=== PATIENT | male | born 1960 | race Caucasian/White ===

== ENCOUNTER 2018-01-17 09:27 | Emergency (ER) | payer SELFPAY ==
[~2018-01-17] VITALS: Ht 182.9 cm; Wt 64.0 kg
[~2018-01-17 09:27] MED LIST: ASPI81 PO; ATOR80TA41 PO; HYDR12.56 PO; LEVO100T4 PO; METO25 PO
[2018-01-17 09:29] VITALS: BP 130/79; PULSE 64; RESP 18; TEMP 98.4; O2SAT 97
[2018-01-17 10:10] VITALS: BP 130/81; PULSE 62; RESP 17; O2SAT 100
--- NOTE | 2018-01-17 10:11 | PD ---
HPI Chief Complaint: ENT Complaint Time Seen by Provider: 10:04 Travel History International Travel<30 days: No Contact w/Intl Traveler<30days: No Traveled to known affect area: No History of Present Illness HPI 57 y/o male presents with a painful lump that he noted to his neck about a week ago. He states he recently moved back here from [place] to complete his cancer workup here when they told him he had about 6 months to live. He states his last chemotherapy was October 28. He states he was diagnosed with lung cancer that had spread to his brain and also received radiation. He states he has not set up an oncologist here yet. He denies any fever or other concurrent complaints at this time. Quality is painful. Location is neck. He denies specific modifying factors. PFSH Past Medical History Blood Disorders: No Cancer: No Cardiac Catheterization: Yes Cardiovascular Problems: No Chest Pain: Yes Congestive Heart Failure: No Cerebrovascular Accident: No Coronary Artery Disease: Yes Diabetes: No Diminished Hearing: No Endocrine: No Gastrointestinal Disorders: Yes Genitourinary: No Hypertension: Yes Immune Disorder: No Musculoskeletal: Yes (CERVICAL DDD) Neurologic: No Psychiatric: No Reproductive: No Respiratory: No Immunizations Current: Yes Myocardial Infarction: Yes (AUG 2014) Seizures: No Ulcer: No Past Surgical History AICD: No Arteriovenous Shunt: No Cardiac Surgery: Yes (ANGIOPLASTY IN 1997) Coronary Stent: Yes (CIRCUMFLEX ARTERY AUG 2014) Insulin Pump: No Joint Replacement: No Pacemaker: No Other Surgery: Yes (l knee tumor removed) Social History Alcohol Use: Yes (A FEW BEERS DAILY) Tobacco Use: Yes (1 PPD) Substance Use: No Allergies-Medications (Allergen,Severity, Reaction): Coded Allergies: No Known Allergies (Verified , 01/18/16) Reported Meds & Prescriptions Reported Meds & Active Scripts Active Reported Meloxicam 15 Mg Tab 15 Mg PO DAILY Hydrocodone-Acetamin 10-325 mg (Hydrocodone/Acetaminophen) 10 Mg-325 Mg Tablet 1 Tab PO Q4-6H PRN Atorvastatin (Atorvastatin Calcium) 80 Mg Tab 80 Mg PO HS Hydroxychloroquine (Hydroxychloroquine Sulfate) 200 Mg Tab 200 Mg PO DAILY Takw with food Hydrochlorothiazide 12.5 Mg Cap 12.5 Mg PO DAILY Allopurinol 100 Mg Tab 100 Mg PO DAILY Levothyroxine (Levothyroxine Sodium) 100 Mcg Tab 100 Mcg PO DAILY Metoprolol Tartrate 50 Mg Tab 50 Mg PO BID Aspirin EC (Aspirin) 81 Mg Tabdr 81 Mg PO DAILY Review of Systems Except as stated in HPI: all other systems reviewed are Neg Physical Exam Narrative GENERAL: 57-year-old male who appears older than stated age SKIN: Focused skin assessment warm/dry. HEAD: Atraumatic. Normocephalic. EYES:No scleral icterus. No injection or drainage. ENT: No nasal bleeding or discharge. Mucous membranes pink and moist. NECK: Trachea midline. No JVD. Patient has painful palpable supraclavicular lymph node on the right without overlying erythema CARDIOVASCULAR: Regular rate and rhythm. RESPIRATORY: No accessory muscle use. Clear to auscultation. GASTROINTESTINAL: Abdomen soft, non-tender, nondistended. MUSCULOSKELETAL: No obvious deformities. No clubbing. No cyanosis. NEUROLOGICAL: Awake and alert. moves all extremities. Normal speech. PSYCHIATRIC: Appropriate mood and affect; insight and judgment normal. Data Data Last Documented VS Vital Signs Date Time Temp Pulse Resp B/P (MAP) Pulse Ox O2 Delivery O2 Flow Rate FiO2 01/17/18 10:10 62 17 130/81 (97) 100 01/17/18 09:29 98.4 Orders Orders Complete Blood Count With Diff (01/17/18 10:08) Basic Metabolic Panel (Bmp) (01/17/18 10:08) Chest, Pa & Lat (01/17/18 ) Iv Access Insert/Monitor (01/17/18 10:08) Ecg Monitoring (01/17/18 10:08) Oximetry (01/17/18 10:08) Ct Thorax/ Chest W Iv Contrast (01/17/18 ) Ct Abd/Pel W Iv Contrast(Rout) (01/17/18 ) Iohexol 350 Inj (Omnipaque 350 Inj) (01/17/18 11:43) Labs Laboratory Tests Test 01/17/18 10:20 White Blood Count 6.7 TH/MM3 Red Blood Count 4.69 MIL/MM3 Hemoglobin 15.5 GM/DL Hematocrit 43.8 % Mean Corpuscular Volume 93.5 FL Mean Corpuscular Hemoglobin 33.0 PG Mean Corpuscular Hemoglobin Concent 35.3 % Red Cell Distribution Width 14.8 % Platelet Count 137 TH/MM3 Mean Platelet Volume 6.7 FL Neutrophils (%) (Auto) 69.4 % Lymphocytes (%) (Auto) 19.8 % Monocytes (%) (Auto) 9.6 % Eosinophils (%) (Auto) 0.9 % Basophils (%) (Auto) 0.3 % Neutrophils # (Auto) 4.7 TH/MM3 Lymphocytes # (Auto) 1.3 TH/MM3 Monocytes # (Auto) 0.6 TH/MM3 Eosinophils # (Auto) 0.1 TH/MM3 Basophils # (Auto) 0.0 TH/MM3 CBC Comment DIFF FINAL Differential Comment Blood Urea Nitrogen 20 MG/DL Creatinine 0.81 MG/DL Random Glucose 107 MG/DL Calcium Level 8.3 MG/DL Sodium Level 138 MEQ/L Potassium Level 3.5 MEQ/L Chloride Level 104 MEQ/L Carbon Dioxide Level 28.6 MEQ/L Anion Gap 5 MEQ/L Estimat Glomerular Filtration Rate 98 ML/MIN MDM Medical Decision Making Medical Screen Exam Complete: Yes Emergency Medical Condition: Yes Medical Record Reviewed: Yes (Past history confirmed) Interpretation(s) CBC & BMP Diagram 01/17/18 10:20 Calcium Level 8.3 L Last 24 hours Impressions Chest X-Ray 01/17/18 0000 Signed Impressions: Service Date/Time: Wednesday, January 17, 2018 10:21 - CONCLUSION: No acute cardiopulmonary disease. Naresh Marie MD CT chest with lung areas noted, CT abdomen and pelvis with hepatic and bony metastasis Differential Diagnosis Cancer, lymph node, URI Narrative Course will check labs, cxr and reevaluate Patient updated and agrees to discharge. He is happy with care provided. He is not wanting to stay in the hospital given the above and agrees that the lesion is likely cancerous. He is happy to call to set up further care. Given return instructions Physician Communication Physician Communication dr truong states to check ct chest and abdomen to help expedite workup and can follow outpatient Diagnosis Primary Impression: Metastatic lung carcinoma Qualified Codes: C78.00 - Secondary malignant neoplasm of unspecified lung Additional Impression: Supraclavicular adenopathy Referrals: Liana Truong MD call for appointment Patient Instructions: General Instructions Additional Instructions: return as needed Med/Other Pt SpecificInfo: No Change to Meds Disposition: 01 DISCHARGE HOME Condition: Stable Sasha Roman MD Jan 17, 2018 10:11
[2018-01-17] MEDS ORDERED: HYDR200T3 PO (10:19)
[2018-01-17] MEDS ORDERED: METO50TA PO (10:19)
[2018-01-17] MEDS ORDERED: ALLO100T PO (10:19)
[2018-01-17] MEDS ORDERED: HYDR12.57 PO (10:19)
[2018-01-17] MEDS ORDERED: ASPI81TA23 PO (10:19)
[2018-01-17] MEDS ORDERED: ATOR80TA45 PO (10:19)
[2018-01-17] MEDS ORDERED: HYDR-3583 PO (10:19)
[2018-01-17] MEDS ORDERED: LEVO100T5 PO (10:19)
[2018-01-17] MEDS ORDERED: MELO15TA20 PO (10:25)
--- NOTE | 2018-01-17 10:33 | RADRPT ---
EXAM DATE/TIME: 01/17/2018 10:21 [facility] COMPARISON: No previous studies available for comparison. INDICATIONS : Cough. MEDICAL HISTORY : Hypertension Lung cancer with mets. Brain cancer. Coronary artery disease. SURGICAL HISTORY : Cardiac cath. Cornary stent. ENCOUNTER: Initial ACUITY: 1 day PAIN SCORE: 0/10 LOCATION: Bilateral chest FINDINGS: PA and lateral views of the chest demonstrate the lungs to be symmetrically aerated without evidence of mass, infiltrate or effusion. The cardiomediastinal contours are unremarkable. Osseous structure s are intact. CONCLUSION: No acute cardiopulmonary disease. Naresh Marie MD on January 17, 2018 at 10:31 Board Certified Radiologist. This report was verified electronically.
[2018-01-17 10:58] LABS: AUTOMATED NEUTROPHIL # 4.7 TH/MM3 (1.8-7.7); BASOPHIL % 0.3 % (0.0-2.0); EOSINOPHIL # 0.1 TH/MM3 (0-0.4); EOSINOPHIL % 0.9 % (0.0-4.0); HEMATOCRIT 43.8 % (39.0-51.0); HEMOGLOBIN 15.5 GM/DL (13.0-17.0); LYMPH % 19.8 % (9.0-44.0); LYMPHOCYTE # 1.3 TH/MM3 (1.0-4.8); MEAN CELL VOLUME 93.5 FL (80.0-100.0); MEAN CORPUSCULAR HGB CONC 35.3 % (32.0-36.0); MEAN PLATELET VOLUME 6.7 FL (7.0-11.0); MONO % 9.6 % (0.0-8.0); MONOCYTE # 0.6 TH/MM3 (0-0.9); NEUT % 69.4 % (16.0-70.0); PLATELET COUNT 137 TH/MM3 (150-450); RED BLOOD COUNT 4.69 MIL/MM3 (4.50-5.90); RED CELL DISTRIBUTION WIDTH 14.8 % (11.6-17.2); WHITE BLOOD COUNT 6.7 TH/MM3 (4.0-11.0)
[2018-01-17 11:15] LABS: BICARBONATE 28.6 MEQ/L (21.0-32.0); CALCIUM 8.3 MG/DL (8.5-10.1); CREATININE 0.81 MG/DL (0.60-1.30)
[2018-01-17] MEDS ORDERED: IOHEXOL 350 MG/ML 10 ML VIAL (for RAD DIAG) IVCONTRAST ONE (11:43)
--- NOTE | 2018-01-17 12:11 | RADRPT ---
EXAM DATE/TIME: 01/17/2018 11:39 This report includes an Addendum and supersedes previous reports for this exam. [facility] COMPARISON: No previous studies available for comparison. INDICATIONS : Right lower neck and upper chest pain and lump. Evaluate for mass. IV CONTRAST: 95 cc Omnipaque 350 (iohexol) IV ; Cumulative dose for multiple exams. RADIATION DOSE: 6.94 CTDIvol (mGy) ; Combined studies - Thorax/Abdomen/Pelvis MEDICAL HISTORY : Carcinoma, lung. Metastatic, brain. Cardiovascular diseaseHypertension. SURGICAL HISTORY : None. ENCOUNTER: Initial ACUITY: 1 week PAIN SCALE: 7/10 LOCATION: Right upper chest TECHNIQUE: Volumetric scanning of the chest was performed. Using automated exposure control and adjustment of t he mA and/or kV according to patient size, radiation dose was kept as low as reasonably achievable to obtain optimal diagnostic quality images. DICOM format image data is available electronically for review and comparison. Follow-up recommendations for detected pulmonary nodules are based at a minimum on nodule size and pa tient risk factors according to Fleischner Society Guidelines. FINDINGS: LUNGS: There are several small irregular parenchymal densities in the right upper lobe which are nonspecific , but have an inflammatory appearance. There is minimal atelectasis or scarring in the posterior righ t lung base. The left lung is clear. PLEURA: There is no pleural thickening or pleural effusion. MEDIASTINUM: There is heterogeneous low density adenopathy in the mediastinum in the prevascular, paratracheal and azygos regions and also involving the right hilum. Lobular low density adenopathy is present in the medial right supraclavicular region and lower jugular chains bilaterally. AXILLAE: Within normal limits. No lymphadenopathy. SKELETAL: Widespread sclerotic bony metastatic disease best seen involving the spine MISCELLANEOUS: Multiple low density liver lesions involving right and left lobes CONCLUSION: Low neck and mediastinal adenopathy. Widespread bony metastases. Multiple liver metastases. Tuan Mai MD on January 17, 2018 at 12:00 Board Certified Radiologist. This report was verified electronically. ADDENDUM: Several small areas of irregular parenchymal density in the right upper lobe of the lung, none clearl y specific for likely primary site Tuan Mai MD on January 17, 2018 at 12:14 Board Certified Radiologist. This report was verified electronically.
--- NOTE | 2018-01-17 12:15 | RADRPT ---
EXAM DATE/TIME: 01/17/2018 11:39 [facility] COMPARISON: No previous studies available for comparison. INDICATIONS : Evaluate for mass. IV CONTRAST: 95 cc Omnipaque 350 (iohexol) IV ; Cumulative dose for multiple exams. ORAL CONTRAST: Partial prescribed oral contrast ingested. RADIATION DOSE: 6.94 CTDIvol (mGy) ; Combined studies - Thorax/Abdomen/Pelvis MEDICAL HISTORY : Carcinoma, lung. Metastatic, brain. Cardiovascular diseaseHypertension. SURGICAL HISTORY : None. ENCOUNTER: Initial ACUITY: 1 week PAIN SCALE: 0/10 LOCATION: Abdomen. TECHNIQUE: Volumetric scanning of the abdomen and pelvis was performed. Using automated exposure control and ad justment of the mA and/or kV according to patient size, radiation dose was kept as low as reasonably achievable to obtain optimal diagnostic quality images. DICOM format image data is available electro nically for review and comparison. FINDINGS: LOWER LUNGS: The visualized lower lungs are clear. LIVER: Multiple low density liver lesions involving right and left lobes, largest about 2.8 cm. SPLEEN: Normal size without lesion. PANCREAS: Within normal limits. KIDNEYS: Normal in size and shape. There is no mass, stone or hydronephrosis. ADRENAL GLANDS: Within normal limits. VASCULAR: Prominent atheromatous involvement of the abdominal aorta and iliacs. BOWEL/MESENTERY: The stomach, small bowel, and colon demonstrate no acute abnormality. There is no free intraperitone al air or fluid. ABDOMINAL WALL: Within normal limits. RETROPERITONEUM: There is no lymphadenopathy. BLADDER: No wall thickening or mass. REPRODUCTIVE: Within normal limits. INGUINAL: There is no lymphadenopathy or hernia. MUSCULOSKELETAL: Sclerotic foci present throughout the visualized bony elements consistent with metastatic disease. CONCLUSION: Hepatic and bony metastases. Anterior left lobe liver lesion does appear readily accessible for percutaneous biopsy Tuan Mai MD on January 17, 2018 at 12:09 Board Certified Radiologist. This report was verified electronically.
== END 2018-01-17 13:00 | disposition home or self-care (01) ==
LOC: NEPE 09:27
DX: C34.90 Malignant neoplasm of unspecified part of unspecified bronchus or lung (principal); C79.31 Secondary malignant neoplasm of brain; I10 Essential (primary) hypertension; I25.10 Atherosclerotic heart disease of native coronary artery without angina pectoris; I25.2 Old myocardial infarction; F17.200 Nicotine dependence, unspecified, uncomplicated
CPT/HCPCS: 71046; 71260; 74177; 80048; 85025; 99285; Q9967

== ENCOUNTER 2018-01-25 14:55 | Emergency (ER) | payer SELFPAY ==
[~2018-01-25] VITALS: Ht 182.9 cm; Wt 61.0 kg
[~2018-01-25 14:55] MED LIST changes: +ALLO100T PO; -ASPI81 PO; +ASPI81TA23 PO; -ATOR80TA41 PO; +ATOR80TA45 PO; +HYDR-3583 PO; -HYDR12.56 PO; +HYDR12.57 PO; +HYDR200T3 PO; -LEVO100T4 PO; +LEVO100T5 PO; +MELO15TA20 PO; -METO25 PO; +METO50TA PO
[2018-01-25 15:09] VITALS: BP 97/69; PULSE 77; RESP 16; TEMP 98.1; O2SAT 99
[2018-01-25] MEDS ORDERED: SODIUM CHLOR 0.9% 1000 ML INJ 1,000 ML IV SCH ×2 (15:44→15:47)
--- NOTE | 2018-01-25 15:44 | RADRPT ---
EXAM DATE/TIME: 01/25/2018 15:34 [facility] COMPARISON: CHEST PA & LAT, January 17, 2018, 10:21. INDICATIONS : Weakness. MEDICAL HISTORY : Carcinoma, lung. Cardiovascular disease. Hypertension. metastatic brain SURGICAL HISTORY : None. ENCOUNTER: Initial ACUITY: 1 day PAIN SCORE: 0/10 LOCATION: Bilateral chest FINDINGS: PA and lateral views of the chest demonstrate the lungs to be symmetrically aerated without evidence of mass, infiltrate or effusion. The cardiomediastinal contours are unremarkable. Osseous structure s are intact. CONCLUSION: No acute disease. Charles Deleon MD FACR on January 25, 2018 at 15:43 Board Certified Radiologist. This report was verified electronically.
[2018-01-25] MEDS ORDERED: METOCLOPRAMIDE HCL 10 MG/2 ML VIAL IV PUSH ONE (15:45)
--- NOTE | 2018-01-25 15:50 | PD ---
HPI Chief Complaint: Dizziness Time Seen by Provider: 15:39 Travel History International Travel<30 days: No Contact w/Intl Traveler<30days: No Traveled to known affect area: No History of Present Illness HPI This is a 57-year-old male with history of metastatic lung cancer presents for evaluation of dehydration, decreased appetite. Symptoms started 3 days ago. He reports that he has had very little to eat or drink over the past 3 days. He reports occasional nausea and occasional vomiting. During review of systems he does endorse a mild chest pressure which is chronic and not acute. It is not exertional and he relates it to his lung cancer. He denies cough, congestion, sore throat, shortness of breath, abdominal pain, vomiting, diarrhea. The patient was seen here 8 days ago. At that time he had CT imaging of his abdomen and pelvis revealing hepatic and bony metastasis, CT the chest revealing low neck and mediastinal adenopathy with widespread bony metastasis. He is in the process of establishing care with oncologist Dr. Pruett has his first appointment in 5 days. He recently moved here from [place]. No other complaints at this time. PFSH Past Medical History Blood Disorders: No Cancer: Yes (LUNG WITH METS BRAIN) Cardiac Catheterization: Yes Cardiovascular Problems: No Chest Pain: Yes Congestive Heart Failure: No Cerebrovascular Accident: No Coronary Artery Disease: Yes Diabetes: No Diminished Hearing: No Endocrine: No Gastrointestinal Disorders: Yes Genitourinary: No Hypertension: Yes Immune Disorder: No Musculoskeletal: Yes (CERVICAL DDD) Neurologic: No Psychiatric: No Reproductive: No Respiratory: No Immunizations Current: Yes Myocardial Infarction: Yes (AUG 2014) Seizures: No Ulcer: No Past Surgical History AICD: No Arteriovenous Shunt: No Cardiac Surgery: Yes (ANGIOPLASTY IN 1997) Coronary Stent: Yes (CIRCUMFLEX ARTERY AUG 2014) Insulin Pump: No Joint Replacement: No Pacemaker: No Other Surgery: Yes (l knee tumor removed) Social History Alcohol Use: Yes (A FEW BEERS DAILY) Tobacco Use: Yes (1 PPD) Substance Use: No Allergies-Medications (Allergen,Severity, Reaction): Coded Allergies: No Known Allergies (Verified Allergy, Unknown, 01/25/18) Reported Meds & Prescriptions Reported Meds & Active Scripts Active Reported Meloxicam 15 Mg Tab 15 Mg PO DAILY Hydrocodone-Acetamin 10-325 mg (Hydrocodone/Acetaminophen) 10 Mg-325 Mg Tablet 1 Tab PO Q4-6H PRN Atorvastatin (Atorvastatin Calcium) 80 Mg Tab 80 Mg PO HS Hydroxychloroquine (Hydroxychloroquine Sulfate) 200 Mg Tab 200 Mg PO DAILY Takw with food Hydrochlorothiazide 12.5 Mg Cap 12.5 Mg PO DAILY Allopurinol 100 Mg Tab 100 Mg PO DAILY Levothyroxine (Levothyroxine Sodium) 100 Mcg Tab 100 Mcg PO DAILY Metoprolol Tartrate 50 Mg Tab 50 Mg PO BID Aspirin EC (Aspirin) 81 Mg Tabdr 81 Mg PO DAILY Review of Systems Except as stated in HPI: all other systems reviewed are Neg Physical Exam Narrative GENERAL: Chronically ill-appearing male in no acute distress. SKIN: Warm and dry. HEAD: Atraumatic. Normocephalic. EYES: Pupils equal and round. No scleral icterus. No injection or drainage. ENT: No nasal bleeding or discharge. Mucous membranes pink and moist. NECK: Trachea midline. No JVD. CARDIOVASCULAR: Regular rate and rhythm. No murmur appreciated. RESPIRATORY: No accessory muscle use. Clear to auscultation. Breath sounds equal bilaterally. GASTROINTESTINAL: Abdomen soft, non-tender, nondistended. Hepatic and splenic margins not palpable. MUSCULOSKELETAL: No obvious deformities. No clubbing. No cyanosis. No edema. NEUROLOGICAL: Awake and alert. No obvious cranial nerve deficits. Motor grossly within normal limits. Normal speech. PSYCHIATRIC: Appropriate mood and affect; insight and judgment normal. Data Data Last Documented VS Vital Signs Date Time Temp Pulse Resp B/P (MAP) Pulse Ox O2 Delivery O2 Flow Rate FiO2 01/25/18 17:53 70 18 112/74 (87) 96 Room Air 01/25/18 15:09 98.1 Orders Orders Complete Blood Count With Diff (01/25/18 15:12) Comprehensive Metabolic Panel (01/25/18 15:12) Electrocardiogram (01/25/18 15:14) Chest, Pa & Lat (01/25/18 ) Creatine Kinase (Cpk) (01/25/18 15:44) Troponin I (01/25/18 15:44) Magnesium (Mg) (01/25/18 15:44) Sodium Chlor 0.9% 1000 Ml Inj (Ns 1000 M (01/25/18 15:44) Metoclopramide Inj (Reglan Inj) (01/25/18 15:45) Sodium Chlor 0.9% 1000 Ml Inj (Ns 1000 M (01/25/18 15:47) Ed Discharge Order (01/25/18 17:54) Labs Laboratory Tests Test 01/25/18 15:30 01/25/18 15:52 White Blood Count 8.7 TH/MM3 Red Blood Count 5.11 MIL/MM3 Hemoglobin 16.7 GM/DL Hematocrit 46.4 % Mean Corpuscular Volume 90.8 FL Mean Corpuscular Hemoglobin 32.6 PG Mean Corpuscular Hemoglobin Concent 35.9 % Red Cell Distribution Width 14.4 % Platelet Count 167 TH/MM3 Mean Platelet Volume 6.7 FL Neutrophils (%) (Auto) 85.7 % Lymphocytes (%) (Auto) 10.4 % Monocytes (%) (Auto) 3.6 % Eosinophils (%) (Auto) 0.1 % Basophils (%) (Auto) 0.2 % Neutrophils # (Auto) 7.5 TH/MM3 Lymphocytes # (Auto) 0.9 TH/MM3 Monocytes # (Auto) 0.3 TH/MM3 Eosinophils # (Auto) 0.0 TH/MM3 Basophils # (Auto) 0.0 TH/MM3 CBC Comment DIFF FINAL Differential Comment Blood Urea Nitrogen 11 MG/DL Creatinine 0.88 MG/DL Random Glucose 106 MG/DL Total Protein 8.2 GM/DL Albumin 4.4 GM/DL Calcium Level 9.4 MG/DL Alkaline Phosphatase 78 U/L Aspartate Amino Transf (AST/SGOT) 24 U/L Alanine Aminotransferase (ALT/SGPT) 36 U/L Total Bilirubin 0.5 MG/DL Sodium Level 138 MEQ/L Potassium Level 3.7 MEQ/L Chloride Level 105 MEQ/L Carbon Dioxide Level 25.5 MEQ/L Anion Gap 8 MEQ/L Estimat Glomerular Filtration Rate 89 ML/MIN Magnesium Level 1.9 MG/DL Total Creatine Kinase 96 U/L Troponin I LESS THAN 0.02 NG/ML [facility] Medical Decision Making Medical Screen Exam Complete: Yes Emergency Medical Condition: Yes Medical Record Reviewed: Yes Differential Diagnosis Metastatic cancer, dehydration, electrolyte abnormality, failure to thrive Narrative Course EKG was obtained revealing sinus rhythm. Lab work, chest x-ray have been ordered. The patient be given IV fluids, Reglan. Upon recheck the patient feels significantly improved. His lab work is essentially unremarkable. At this point on the plan is to have him follow-up with his oncologist next week as scheduled and return for any new or worsening symptoms. He is stable for discharge. Diagnosis Primary Impression: Decreased appetite Additional Instructions: Stay well-hydrated and well-nourished. User at home Zofran as needed for nausea. Follow-up with your oncologist and return for any acutely new or worsening symptoms. Med/Other Pt SpecificInfo: No Change to Meds Disposition: 01 DISCHARGE HOME Condition: Stable Vini Barlow Jan 25, 2018 15:50
[2018-01-25 16:50] LABS: AUTOMATED NEUTROPHIL # 7.5 TH/MM3 (1.8-7.7); BASOPHIL % 0.2 % (0.0-2.0); EOSINOPHIL % 0.1 % (0.0-4.0); HEMATOCRIT 46.4 % (39.0-51.0); HEMOGLOBIN 16.7 GM/DL (13.0-17.0); LYMPH % 10.4 % (9.0-44.0); LYMPHOCYTE # 0.9 TH/MM3 (1.0-4.8); MEAN CELL VOLUME 90.8 FL (80.0-100.0); MEAN CORPUSCULAR HEMOGLOBIN 32.6 PG (27.0-34.0); MEAN CORPUSCULAR HGB CONC 35.9 % (32.0-36.0); MEAN PLATELET VOLUME 6.7 FL (7.0-11.0); MONO % 3.6 % (0.0-8.0); MONOCYTE # 0.3 TH/MM3 (0-0.9); NEUT % 85.7 % (16.0-70.0); PLATELET COUNT 167 TH/MM3 (150-450); RED BLOOD COUNT 5.11 MIL/MM3 (4.50-5.90); RED CELL DISTRIBUTION WIDTH 14.4 % (11.6-17.2); WHITE BLOOD COUNT 8.7 TH/MM3 (4.0-11.0)
[2018-01-25 17:05] LABS: MAGNESIUM 1.9 MG/DL (1.5-2.5)
[2018-01-25 17:08] LABS: ALBUMIN 4.4 GM/DL (3.4-5.0); AST (GOT) 24 U/L (15-37); BICARBONATE 25.5 MEQ/L (21.0-32.0); BLOOD UREA NITROGEN 11 MG/DL (7-18); CALCIUM 9.4 MG/DL (8.5-10.1); CHLORIDE 105 MEQ/L (98-107); CREATININE 0.88 MG/DL (0.60-1.30); GLOMERULAR FILTRATION RATE 89 ML/MIN (>89); GLUCOSE,RANDOM 106 MG/DL (74-106); SODIUM (NA) 138 MEQ/L (136-145)
[2018-01-25 17:08] LABS: TROPONIN I LESS THAN 0.02 NG/ML (0.02-0.05)
[2018-01-25 17:11] LABS: ALKALINE PHOSPHATASE 78 U/L (45-117); ALT (GPT) 36 U/L (12-78); TOTAL BILIRUBIN ADULT 0.5 MG/DL (0.2-1.0); TOTAL PROTEIN 8.2 GM/DL (6.4-8.2)
[2018-01-25 17:53] VITALS: BP 112/74; PULSE 70; RESP 18; O2SAT 96
--- NOTE | 2018-01-26 11:20 | EKG ---
Date Performed: 01/25/2018 Time Performed: 15:21:29 PTAGE: 57 years EKG: Sinus rhythm POSSIBLE RIGHT ATRIAL ENLARGEMENT BORDERLINE ECG Since the prior tracing, there has been no signific ant change PREVIOUS TRACING : 01/20/2016 00.37 DOCTOR: [employer] Interpretating Date/Time 01/26/2018 11:16:36
== END 2018-01-25 18:11 | disposition home or self-care (01) ==
LOC: NEPE 14:55
DX: R63.0 Anorexia (principal); R11.0 Nausea; C34.90 Malignant neoplasm of unspecified part of unspecified bronchus or lung; C79.31 Secondary malignant neoplasm of brain; C79.51 Secondary malignant neoplasm of bone; R94.31 Abnormal electrocardiogram [ECG] [EKG]; I10 Essential (primary) hypertension; Z72.0 Tobacco use
CPT/HCPCS: 71046; 80053; 82550; 83735; 84484; 85025; 93005; 96361; 96374; 99285; J2765; J7030

== ENCOUNTER 2018-02-10 17:33 | Observation (INO) | payer MEDICAID ==
[~2018-02-10] VITALS: Ht 182.9 cm; Wt 60.0 kg
[2018-02-10] MEDS ORDERED: IOHEXOL 350 MG/ML 10 ML VIAL (for RAD DIAG) IVCONTRAST ONE (17:34)
[2018-02-10 17:42] VITALS: BP 90/69; PULSE 112; RESP 20; TEMP 98.7; O2SAT 98
[2018-02-10] MEDS ORDERED: SODIUM CHLOR 0.9% 1000 ML INJ 1,000 ML IV ONE ×3 (19:30→22:00)
--- NOTE | 2018-02-10 19:50 | PD ---
HPI Chief Complaint: Abdominal Pain Time Seen by Provider: 19:24 Travel History International Travel<30 days: No Contact w/Intl Traveler<30days: No Traveled to known affect area: No History of Present Illness HPI Patient is a 57-year-old male presenting to the emergency department for evaluation of abdominal pain. Pain has been ongoing for several days. Patient reports a decreased appetite, and cramping sensation in his abdomen, he states he feels weak. He is tolerating water but has not been eating foods secondary to the appetite, he denies any vomiting, fever, chills. He reports chronic shortness of breath and chest pressure secondary to his lung cancer. Patient has a history of lung cancer with metastatic disease to the liver, brain. Patient denies any loose or tarry like stools. Symptom onset was gradual, symptom severity is mild to moderate, there are no alleviating factors. PFSH Past Medical History Blood Disorders: No Cancer: Yes (LUNG WITH METS BRAIN) Cardiac Catheterization: Yes Cardiovascular Problems: Yes Chemotherapy: Yes Chest Pain: Yes Congestive Heart Failure: No Cerebrovascular Accident: No Coronary Artery Disease: Yes Diabetes: No Diminished Hearing: No Endocrine: No Gastrointestinal Disorders: Yes Genitourinary: No Hypertension: Yes Immune Disorder: No Musculoskeletal: Yes (CERVICAL DDD) Neurologic: No Psychiatric: No Reproductive: No Respiratory: Yes Immunizations Current: Yes Myocardial Infarction: Yes (AUG 2014) Seizures: No Ulcer: No Past Surgical History AICD: No Arteriovenous Shunt: No Cardiac Surgery: Yes (ANGIOPLASTY IN 1997) Coronary Stent: Yes (CIRCUMFLEX ARTERY AUG 2014) Insulin Pump: No Joint Replacement: No Pacemaker: No Other Surgery: Yes (l knee tumor removed) Social History Alcohol Use: Yes (A FEW BEERS DAILY) Tobacco Use: Yes (1 PPD) Substance Use: No Allergies-Medications (Allergen,Severity, Reaction): Coded Allergies: No Known Allergies (Verified Allergy, Unknown, 01/25/18) Reported Meds & Prescriptions Reported Meds & Active Scripts Active Reported Meloxicam 15 Mg Tab 15 Mg PO DAILY Hydrocodone-Acetamin 10-325 mg (Hydrocodone/Acetaminophen) 10 Mg-325 Mg Tablet 1 Tab PO Q4-6H PRN Atorvastatin (Atorvastatin Calcium) 80 Mg Tab 80 Mg PO HS Hydroxychloroquine (Hydroxychloroquine Sulfate) 200 Mg Tab 200 Mg PO DAILY Takw with food Hydrochlorothiazide 12.5 Mg Cap 12.5 Mg PO DAILY Allopurinol 100 Mg Tab 100 Mg PO DAILY Levothyroxine (Levothyroxine Sodium) 100 Mcg Tab 100 Mcg PO DAILY Metoprolol Tartrate 50 Mg Tab 50 Mg PO BID Aspirin EC (Aspirin) 81 Mg Tabdr 81 Mg PO DAILY Review of Systems Except as stated in HPI: all other systems reviewed are Neg General / Constitutional: No: Fever HENT: No: Headaches, Lightheadedness Cardiovascular: No: Chest Pain or Discomfort Respiratory: Positive: Shortness of Breath (Chronic) Gastrointestinal: Positive: Nausea, Abdominal Pain, No: Vomiting, Diarrhea, Changes in Bowel Habits Neurologic: Positive: Weakness Physical Exam Narrative GENERAL: Thin, well-developed, alert male. Presenting in no acute distress. SKIN: Warm and dry. HEAD: Atraumatic. Normocephalic. EYES: Pupils equal and round. No scleral icterus. No injection or drainage. ENT: No nasal bleeding or discharge. Mucous membranes pink and moist. NECK: Trachea midline. No JVD. CARDIOVASCULAR: Mildly tachycardic. RESPIRATORY: No accessory muscle use. Clear to auscultation. Breath sounds equal bilaterally. GASTROINTESTINAL: Abdomen soft, tender to palpation in left upper quadrant, nondistended. Hepatic and splenic margins not palpable. No rebound, no guarding MUSCULOSKELETAL: Extremities without clubbing, cyanosis, or edema. No obvious deformities. NEUROLOGICAL: Awake and alert. No obvious cranial nerve deficits. Motor grossly within normal limits. Five out of 5 muscle strength in the arms and legs. Normal speech. PSYCHIATRIC: Flat mood and affect; insight and judgment normal. Data Data Last Documented VS Vital Signs Date Time Temp Pulse Resp B/P (MAP) Pulse Ox O2 Delivery O2 Flow Rate FiO2 02/10/18 20:22 99 Room Air 02/10/18 20:21 98.0 86 16 Orders Orders Complete Blood Count With Diff (02/10/18 17:53) Comprehensive Metabolic Panel (02/10/18 17:53) Urinalysis - C+S If Indicated (02/10/18 17:53) Iv Access Insert/Monitor (02/10/18 17:53) Oxygen Administration (02/10/18 17:53) Oximetry (02/10/18 17:53) Lipase (02/10/18 17:53) Blood Culture (02/10/18 17:53) Chest, Single Ap (02/10/18 17:53) Ecg Monitoring (02/10/18 17:53) Sodium Chlor 0.9% 1000 Ml Inj (Ns 1000 M (02/10/18 19:30) Ondansetron Inj (Zofran Inj) (02/10/18 20:00) Ct Abd/Pel W Iv Contrast(Rout) (02/10/18 ) Sodium Chlor 0.9% 1000 Ml Inj (Ns 1000 M (02/10/18 20:30) Iohexol 350 Inj (Omnipaque 350 Inj) (02/10/18 17:34) Potassium Chlor 20 Meq Premix (Kcl 20 Me (02/10/18 21:30) Morphine Inj (Morphine Inj) (02/10/18 22:00) Sodium Chlor 0.9% 1000 Ml Inj (Ns 1000 M (02/10/18 22:00) Admit Order (Ed Use Only) (02/10/18 22:04) Labs Laboratory Tests Test 02/10/18 20:05 White Blood Count 7.9 TH/MM3 Red Blood Count 4.70 MIL/MM3 Hemoglobin 15.0 GM/DL Hematocrit 41.6 % Mean Corpuscular Volume 88.6 FL Mean Corpuscular Hemoglobin 32.0 PG Mean Corpuscular Hemoglobin Concent 36.1 % Red Cell Distribution Width 14.3 % Platelet Count 150 TH/MM3 Mean Platelet Volume 6.1 FL Neutrophils (%) (Auto) 74.3 % Lymphocytes (%) (Auto) 13.0 % Monocytes (%) (Auto) 10.7 % Eosinophils (%) (Auto) 1.5 % Basophils (%) (Auto) 0.5 % Neutrophils # (Auto) 5.9 TH/MM3 Lymphocytes # (Auto) 1.0 TH/MM3 Monocytes # (Auto) 0.8 TH/MM3 Eosinophils # (Auto) 0.1 TH/MM3 Basophils # (Auto) 0.0 TH/MM3 CBC Comment AUTO DIFF Differential Comment AUTO DIFF CONFIRMED Platelet Estimate LOW Platelet Morphology Comment NORMAL Ovalocytes 1+ Urine Color YELLOW Urine Turbidity CLEAR Urine pH 7.0 Urine Specific [place] 1.007 Urine Protein TRACE mg/dL Urine Glucose (UA) NEG mg/dL Urine Ketones 10 mg/dL Urine Occult Blood TRACE Urine Nitrite NEG Urine Bilirubin NEG Urine Urobilinogen LESS THAN 2.0 MG/DL Urine Leukocyte Esterase NEG Urine RBC 1 /hpf Urine WBC 1 /hpf Microscopic Urinalysis Comment CULT NOT INDICATED Blood Urea Nitrogen 11 MG/DL Creatinine 0.90 MG/DL Random Glucose 87 MG/DL Total Protein 7.5 GM/DL Albumin 3.9 GM/DL Calcium Level 9.5 MG/DL Alkaline Phosphatase 90 U/L Aspartate Amino Transf (AST/SGOT) 39 U/L Alanine Aminotransferase (ALT/SGPT) 44 U/L Total Bilirubin 0.5 MG/DL Sodium Level 137 MEQ/L Potassium Level 3.4 MEQ/L Chloride Level 102 MEQ/L Carbon Dioxide Level 25.2 MEQ/L Anion Gap 10 MEQ/L Estimat Glomerular Filtration Rate 87 ML/MIN Lipase 987 U/L [facility] Medical Decision Making Medical Screen Exam Complete: Yes Emergency Medical Condition: Yes Medical Record Reviewed: Yes Interpretation(s) Last Impressions Chest X-Ray 02/10/18 1753 Signed Impressions: Service Date/Time: Saturday, February 10, 2018 19:50 - CONCLUSION: No significant change. Mediastinal and right hilar lymphadenopathy and patchy right upper lobe parenchymal consolidation again noted. Tuan Madrid MD Abdomen/Pelvis CT 02/10/18 0000 Signed Impressions: Service Date/Time: Saturday, February 10, 2018 21:14 - CONCLUSION: 1. Worsening metastatic disease of the liver. 2. Blastic bony metastatic disease is widespread but has a similar CT appearance to the comparison. No pathologic fracture demonstrated. Tuan Madrid MD Laboratory Tests Test 02/10/18 20:05 White Blood Count 7.9 TH/MM3 Red Blood Count 4.70 MIL/MM3 Hemoglobin 15.0 GM/DL Hematocrit 41.6 % Mean Corpuscular Volume 88.6 FL Mean Corpuscular Hemoglobin 32.0 PG Mean Corpuscular Hemoglobin Concent 36.1 % Red Cell Distribution Width 14.3 % Platelet Count 150 TH/MM3 Mean Platelet Volume 6.1 FL Neutrophils (%) (Auto) 74.3 % Lymphocytes (%) (Auto) 13.0 % Monocytes (%) (Auto) 10.7 % Eosinophils (%) (Auto) 1.5 % Basophils (%) (Auto) 0.5 % Neutrophils # (Auto) 5.9 TH/MM3 Lymphocytes # (Auto) 1.0 TH/MM3 Monocytes # (Auto) 0.8 TH/MM3 Eosinophils # (Auto) 0.1 TH/MM3 Basophils # (Auto) 0.0 TH/MM3 CBC Comment AUTO DIFF Differential Comment AUTO DIFF CONFIRMED Platelet Estimate LOW Platelet Morphology Comment NORMAL Ovalocytes 1+ Urine Color YELLOW Urine Turbidity CLEAR Urine pH 7.0 Urine Specific [place] 1.007 Urine Protein TRACE mg/dL Urine Glucose (UA) NEG mg/dL Urine Ketones 10 mg/dL Urine Occult Blood TRACE Urine Nitrite NEG Urine Bilirubin NEG Urine Urobilinogen LESS THAN 2.0 MG/DL Urine Leukocyte Esterase NEG Urine RBC 1 /hpf Urine WBC 1 /hpf Microscopic Urinalysis Comment CULT NOT INDICATED Blood Urea Nitrogen 11 MG/DL Creatinine 0.90 MG/DL Random Glucose 87 MG/DL Total Protein 7.5 GM/DL Albumin 3.9 GM/DL Calcium Level 9.5 MG/DL Alkaline Phosphatase 90 U/L Aspartate Amino Transf (AST/SGOT) 39 U/L Alanine Aminotransferase (ALT/SGPT) 44 U/L Total Bilirubin 0.5 MG/DL Sodium Level 137 MEQ/L Potassium Level 3.4 MEQ/L Chloride Level 102 MEQ/L Carbon Dioxide Level 25.2 MEQ/L Anion Gap 10 MEQ/L Estimat Glomerular Filtration Rate 87 ML/MIN Lipase 987 U/L Vital Signs Date Time Temp Pulse Resp B/P (MAP) Pulse Ox O2 Delivery O2 Flow Rate FiO2 18 17:42 98.7 112 20 90/69 (08) 98 Differential Diagnosis Metabolic abnormality versus metastatic disease versus pancreatitis versus other Narrative Course Patient is a 57-year-old male presenting to emergency room for evaluation of abdominal pain. Patient has a history of metastatic lung cancer, he is currently followed by Dr. Pruett. Patient is mildly tachycardic and hypotensive. IV fluids ordered. Labs and imaging ordered and pending. Urinalysis is unremarkable CBC with no acute findings, chemistry with potassium 3.4, IV replacement ordered. Lipase 987. Urinalysis is unremarkable. Chest x-ray shows no significant change. Mediastinal and right hilar lymphadenopathy and patchy right upper lobe parenchymal consolidation again noted. CT the abdomen and pelvis shows worsening metastatic disease of the liver. Blastic bony metastatic disease is widespread but has a similar CT appearance to the comparison. No pathologic fracture demonstrated. Patient has been given a total of 2 L of IV fluids and Zofran. His blood pressure trended up and his heart rate normalized and is currently in the 80s. Patient remains afebrile. Discussed with my attending physician. Patient was brought in under observation to trend lipase levels. Discussed CT results with patient and his . Patient requested pain medication. Additional liter of fluids, morphine ordered. Discussed case with Dr. Prieto who accepted admission. Admit orders placed. Diagnosis Primary Impression: Pancreatitis Qualified Codes: K85.90 - Acute pancreatitis without necrosis or infection, unspecified Additional Impressions: Hypotension Qualified Codes: I95.9 - Hypotension, unspecified Metastatic cancer Admitting Information Admitting Physician Requests: Observation Condition: Stable Coco Billingsley Feb 10, 2018 19:49
[2018-02-10] MEDS ORDERED: ONDANSETRON HCL 4 MG/2 ML VIAL IV PUSH ONE (20:00)
[2018-02-10 20:13] LABS: AUTOMATED NEUTROPHIL # 5.9 TH/MM3 (1.8-7.7); BASOPHIL % 0.5 % (0.0-2.0); EOSINOPHIL # 0.1 TH/MM3 (0-0.4); EOSINOPHIL % 1.5 % (0.0-4.0); HEMATOCRIT 41.6 % (39.0-51.0); MEAN CELL VOLUME 88.6 FL (80.0-100.0); MEAN PLATELET VOLUME 6.1 FL (7.0-11.0); MONO % 10.7 % (0.0-8.0); MONOCYTE # 0.8 TH/MM3 (0-0.9); NEUT % 74.3 % (16.0-70.0); PLATELET COUNT 150 TH/MM3 (150-450); RED CELL DISTRIBUTION WIDTH 14.3 % (11.6-17.2); WHITE BLOOD COUNT 7.9 TH/MM3 (4.0-11.0)
[2018-02-10 20:18] LABS: MEAN CORPUSCULAR HGB CONC 36.1 % (32.0-36.0)
[2018-02-10 20:21] VITALS: BP 106/72; PULSE 86; RESP 16; TEMP 98; O2SAT 99
[2018-02-10 20:21] LABS: BILIRUBIN, URINE NEG (NEG); BLOOD, URINE TRACE (NEG); GLUCOSE,URINE NEG (NEG); KETONE, URINE 10 mg/dL (NEG); NITRITE,URINE NEG (NEG); URINE COLOR YELLOW (YELLW/STRAW); URINE LEUKOCYTE ESTERASE NEG (NEG)
--- NOTE | 2018-02-10 20:21 | RADRPT ---
EXAM DATE/TIME: 02/10/2018 19:50 [facility] COMPARISON: CHEST PA & LAT, January 25, 2018, 15:34. CT THORAX W CONTRAST, January 17, 2018, 11:39. INDICATIONS : Fever. Congestion. MEDICAL HISTORY : None. SURGICAL HISTORY : None. ENCOUNTER: Initial ACUITY: 3 days PAIN SCORE: 7/10 LOCATION: Bilateral chest FINDINGS: Patchy parenchymal opacities of the right upper lobe are again seen and without definite change. Left lung remains clear. No pleural effusion seen. No pneumothorax. Right hilar fullness similar to the p rior studies. Heart size stable, within normal limits. CONCLUSION: No significant change. Mediastinal and right hilar lymphadenopathy and patchy right upper lobe parenc hymal consolidation again noted. Tuan Madrid MD on February 10, 2018 at 20:17 Board Certified Radiologist. This report was verified electronically.
[2018-02-10 20:22] VITALS: O2SAT 99
[2018-02-10 20:35] LABS: ALBUMIN 3.9 GM/DL (3.4-5.0); AST (GOT) 39 U/L (15-37); BICARBONATE 25.2 MEQ/L (21.0-32.0); BLOOD UREA NITROGEN 11 MG/DL (7-18); CALCIUM 9.5 MG/DL (8.5-10.1); CHLORIDE 102 MEQ/L (98-107); GLOMERULAR FILTRATION RATE 87 ML/MIN (>89); GLUCOSE,RANDOM 87 MG/DL (74-106); SODIUM (NA) 137 MEQ/L (136-145)
[2018-02-10 20:36] LABS: ALT (GPT) 44 U/L (12-78)
--- NOTE | 2018-02-10 20:37 | PD ---
Physical Exam Narrative I, Dr. Whitman, have reviewed the advance practice practitioner's documentation and am in agreement, met with the patient face to face, made the diagnosis, and the medical decision making was done by me. *My assessment and Findings: Patient is a 57 year old male who comes in complaining of left upper quadrant abdominal pain. He has metastatic carcinoma, not currently receiving chemo. Exam shows tenderness to the upper abdomen, no rebound or guarding. Data Data Last Documented VS Vital Signs Date Time Temp Pulse Resp B/P (MAP) Pulse Ox O2 Delivery O2 Flow Rate FiO2 02/10/18 20:22 99 Room Air 02/10/18 20:21 98.0 86 16 Orders Orders Complete Blood Count With Diff (02/10/18 17:53) Comprehensive Metabolic Panel (02/10/18 17:53) Urinalysis - C+S If Indicated (02/10/18 17:53) Iv Access Insert/Monitor (02/10/18 17:53) Oxygen Administration (02/10/18 17:53) Oximetry (02/10/18 17:53) Lipase (02/10/18 17:53) Blood Culture (02/10/18 17:53) Chest, Single Ap (02/10/18 17:53) Ecg Monitoring (02/10/18 17:53) Sodium Chlor 0.9% 1000 Ml Inj (Ns 1000 M (02/10/18 19:30) Ondansetron Inj (Zofran Inj) (02/10/18 20:00) Ct Abd/Pel W Iv Contrast(Rout) (02/10/18 ) Sodium Chlor 0.9% 1000 Ml Inj (Ns 1000 M (02/10/18 20:30) Iohexol 350 Inj (Omnipaque 350 Inj) (02/10/18 17:34) Potassium Chlor 20 Meq Premix (Kcl 20 Me (02/10/18 21:30) Morphine Inj (Morphine Inj) (02/10/18 22:00) Sodium Chlor 0.9% 1000 Ml Inj (Ns 1000 M (02/10/18 22:00) Admit Order (Ed Use Only) (02/10/18 22:04) Labs Laboratory Tests Test 02/10/18 20:05 White Blood Count 7.9 TH/MM3 Red Blood Count 4.70 MIL/MM3 Hemoglobin 15.0 GM/DL Hematocrit 41.6 % Mean Corpuscular Volume 88.6 FL Mean Corpuscular Hemoglobin 32.0 PG Mean Corpuscular Hemoglobin Concent 36.1 % Red Cell Distribution Width 14.3 % Platelet Count 150 TH/MM3 Mean Platelet Volume 6.1 FL Neutrophils (%) (Auto) 74.3 % Lymphocytes (%) (Auto) 13.0 % Monocytes (%) (Auto) 10.7 % Eosinophils (%) (Auto) 1.5 % Basophils (%) (Auto) 0.5 % Neutrophils # (Auto) 5.9 TH/MM3 Lymphocytes # (Auto) 1.0 TH/MM3 Monocytes # (Auto) 0.8 TH/MM3 Eosinophils # (Auto) 0.1 TH/MM3 Basophils # (Auto) 0.0 TH/MM3 CBC Comment AUTO DIFF Differential Comment AUTO DIFF CONFIRMED Platelet Estimate LOW Platelet Morphology Comment NORMAL Ovalocytes 1+ Urine Color YELLOW Urine Turbidity CLEAR Urine pH 7.0 Urine Specific [place] 1.007 Urine Protein TRACE mg/dL Urine Glucose (UA) NEG mg/dL Urine Ketones 10 mg/dL Urine Occult Blood TRACE Urine Nitrite NEG Urine Bilirubin NEG Urine Urobilinogen LESS THAN 2.0 MG/DL Urine Leukocyte Esterase NEG Urine RBC 1 /hpf Urine WBC 1 /hpf Microscopic Urinalysis Comment CULT NOT INDICATED Blood Urea Nitrogen 11 MG/DL Creatinine 0.90 MG/DL Random Glucose 87 MG/DL Total Protein 7.5 GM/DL Albumin 3.9 GM/DL Calcium Level 9.5 MG/DL Alkaline Phosphatase 90 U/L Aspartate Amino Transf (AST/SGOT) 39 U/L Alanine Aminotransferase (ALT/SGPT) 44 U/L Total Bilirubin 0.5 MG/DL Sodium Level 137 MEQ/L Potassium Level 3.4 MEQ/L Chloride Level 102 MEQ/L Carbon Dioxide Level 25.2 MEQ/L Anion Gap 10 MEQ/L Estimat Glomerular Filtration Rate 87 ML/MIN Lipase 987 U/L [facility] Supervised Visit with MARIAH: Yes Narrative Course Labs concerning for elevated lipase. CT abdomen pelvis performed shows metastatic disease. Patient given IV fluids and pain medicine. He will be admitted for further management. Diagnosis Primary Impression: Pancreatitis Qualified Codes: K85.90 - Acute pancreatitis without necrosis or infection, unspecified Consuelo Whitman MD Feb 10, 2018 20:37
[2018-02-10 20:38] LABS: ALKALINE PHOSPHATASE 90 U/L (45-117); TOTAL BILIRUBIN ADULT 0.5 MG/DL (0.2-1.0); TOTAL PROTEIN 7.5 GM/DL (6.4-8.2)
[2018-02-10 20:46] LABS: OVALOCYTES 1+ (NORMAL)
[2018-02-10] MEDS ORDERED: POTASSIUM CHLOR 20 MEQ PREMIX 100 ML IV ONE (21:30)
--- NOTE | 2018-02-10 21:41 | RADRPT ---
EXAM DATE/TIME: 02/10/2018 21:14 [facility] COMPARISON: CT ABDOMEN & PELVIS W CONTRAST, January 17, 2018, 11:39. INDICATIONS : History of lung cancer with mets to brain, liver. Left upper qaudrant. IV CONTRAST: 80 cc Omnipaque 350 (iohexol) IV ORAL CONTRAST: No oral contrast ingested. RADIATION DOSE: 6.40 CTDIvol (mGy) MEDICAL HISTORY : Carcinoma, lung. Cardiovascular disease Hypertension. SURGICAL HISTORY : None. ENCOUNTER: Initial ACUITY: 1 day PAIN SCALE: 5/10 LOCATION: abdomen/pelvis TECHNIQUE: Volumetric scanning of the abdomen and pelvis was performed. Using automated exposure control and ad justment of the mA and/or kV according to patient size, radiation dose was kept as low as reasonably achievable to obtain optimal diagnostic quality images. DICOM format image data is available electro nically for review and comparison. FINDINGS: LOWER LUNGS: The visualized lower lungs are clear. LIVER: Numerous low density masses throughout the liver, increased in size and number in the interim. Larges t lesion is in the medial segment of the right hepatic lobe and measures 4.1 cm. SPLEEN: Normal size without lesion. PANCREAS: Within normal limits. KIDNEYS: Normal in size and shape. There is no mass, stone or hydronephrosis. ADRENAL GLANDS: Within normal limits. VASCULAR: Atherosclerotic aorta. No aneurysm. BOWEL/MESENTERY: The stomach, small bowel, and colon demonstrate no acute abnormality. There is no free intraperitone al air or fluid. ABDOMINAL WALL: Within normal limits. RETROPERITONEUM: There is no lymphadenopathy. BLADDER: No wall thickening or mass. REPRODUCTIVE: Within normal limits. INGUINAL: There is no lymphadenopathy or hernia. MUSCULOSKELETAL: Too numerous to count sclerotic lesions of the visualized osseous structures are again noted and with out definite change. No pathologic fracture seen. CONCLUSION: 1. Worsening metastatic disease of the liver. 2. Blastic bony metastatic disease is widespread but has a similar CT appearance to the comparison. N o pathologic fracture demonstrated. Tuan Madrid MD on February 10, 2018 at 21:35 Board Certified Radiologist. This report was verified electronically.
[2018-02-10] MEDS ORDERED: MORPHINE SULFATE 4 MG/ML INJ IV PUSH ONE (22:00)
[2018-02-10] MEDS: SODIUM CHLOR 0.9% 1000 ML INJ 1,000 ML IV SCH (22:44)
[2018-02-10] MEDS ORDERED: ONDANSETRON HCL 4 MG/2 ML VIAL IVP PRN (22:45)
[2018-02-10] MEDS ORDERED: NALOXONE HCL 0.4 MG/ML AMP IV PUSH PRN (22:45)
[2018-02-10] MEDS ORDERED: MORPHINE SULFATE 2 MG/ML INJ IV PUSH PRN (23:00)
[2018-02-10 23:13] VITALS: BP 118/73; PULSE 89; RESP 18; O2SAT 98
[2018-02-10] MEDS: HEPARIN SODIUM - SQ 10,000 UNITS/ML VIAL SQ SCH (23:31)
[2018-02-11] MEDS ORDERED: TEMAZEPAM 15 MG CAP PO ONE (00:15)
[2018-02-11] MEDS ORDERED: ZOLPIDEM TARTRATE 10 MG TAB PO ONE ×2 (01:15→22:45)
[2018-02-11] MEDS ORDERED: HYDROmorphone HCL PF 2 MG/ML VIAL IV PUSH PRN (01:15)
--- NOTE | 2018-02-11 03:00 | HHI.HP ---
HPI Service [facility] Primary Care Physician Sean Keyes DO Admission Diagnosis PANCREATITIS, HYPOTENSION Diagnoses: Travel History International Travel<30 Days: No Contact w/Intl Traveler <30 Da: No Traveled to Known Affected Are: No History of Present Illness 57-year-old male with past medical history significant for lung cancer with metastatic disease to the liver and brain, hypertension, hyperlipidemia, hypothyroidism, lupus and coronary artery disease presents to the emergency department for evaluation of epigastric pain. The patient states the pain is nonradiating and constant in his epigastrium. He denies any associated nausea/ vomiting. It has been ongoing for several days. The patient does report an associated anorexia and abdominal cramping. He also states he feels more weak than usual. He reports baseline shortness of breath and chest pressure that is unchanged and secondary to his lung cancer. Review of Systems Except as stated in HPI: all other systems reviewed are Neg Past Family Social History Past Medical History Metastatic lung cancer Hypertension Hyperlipidemia Hypothyroidism Lupus Coronary artery disease Past Surgical History Leg tumor removal at age 9 Cardiac stent 1 in 2013 Reported Medications Reported Meds & Active Scripts Active Reported Meloxicam 15 Mg Tab 15 Mg PO DAILY Hydrocodone-Acetamin 10-325 mg (Hydrocodone/Acetaminophen) 10 Mg-325 Mg Tablet 1 Tab PO Q4-6H PRN Atorvastatin (Atorvastatin Calcium) 80 Mg Tab 80 Mg PO HS Hydroxychloroquine (Hydroxychloroquine Sulfate) 200 Mg Tab 200 Mg PO DAILY Takw with food Hydrochlorothiazide 12.5 Mg Cap 12.5 Mg PO DAILY Allopurinol 100 Mg Tab 100 Mg PO DAILY Levothyroxine (Levothyroxine Sodium) 100 Mcg Tab 100 Mcg PO DAILY Metoprolol Tartrate 50 Mg Tab 50 Mg PO BID Aspirin EC (Aspirin) 81 Mg Tabdr 81 Mg PO DAILY Allergies: Coded Allergies: No Known Allergies (Verified Allergy, Unknown, 01/25/18) Family History Negative for CAD/DM Social History Quit smoking and alcohol 2-1/2 months ago. Denies illicit drugs. Physical Exam Vital Signs Vital Signs Date Time Temp Pulse Resp B/P (MAP) Pulse Ox O2 Delivery O2 Flow Rate FiO2 02/10/18 23:40 02/10/18 23:13 89 18 118/73 (88) 98 Room Air 02/10/18 20:22 99 Room Air 02/10/18 20:21 98.0 86 16 106/72 (83) 99 Room Air 02/10/18 17:42 98.7 112 20 90/69 (76) 98 Physical Exam GENERAL: male lying in bed in obvious pain SKIN: No rashes, ecchymoses or lesions. Cool and dry. HEAD: Atraumatic. Normocephalic. No temporal or scalp tenderness. EYES: Pupils equal round and reactive. Extraocular motions intact. No scleral icterus. No injection or drainage. ENT: Nose without bleeding, purulent drainage or septal hematoma. Throat without erythema, tonsillar hypertrophy or exudate. Uvula midline. Airway patent. NECK: Trachea midline. No JVD or lymphadenopathy. Supple, nontender, no meningeal signs. CARDIOVASCULAR: Regular rate and rhythm without murmurs, gallops, or rubs. RESPIRATORY: Clear to auscultation. Breath sounds equal bilaterally. No wheezes , rales, or rhonchi. GASTROINTESTINAL: Abdomen soft, tender to palpation in the epigastric, nondistended. MUSCULOSKELETAL: Extremities without clubbing, cyanosis, or edema. No joint tenderness, effusion, or edema noted. No calf tenderness. NEUROLOGICAL: Awake and alert. Cranial nerves II through XII intact. Motor and sensory grossly within normal limits. Normal speech. Laboratory Laboratory Tests Test 02/10/18 20:05 White Blood Count 7.9 Red Blood Count 4.70 Hemoglobin 15.0 Hematocrit 41.6 Mean Corpuscular Volume 88.6 Mean Corpuscular Hemoglobin 32.0 Mean Corpuscular Hemoglobin Concent 36.1 Red Cell Distribution Width 14.3 Platelet Count 150 Mean Platelet Volume 6.1 Neutrophils (%) (Auto) 74.3 Lymphocytes (%) (Auto) 13.0 Monocytes (%) (Auto) 10.7 Eosinophils (%) (Auto) 1.5 Basophils (%) (Auto) 0.5 Neutrophils # (Auto) 5.9 Lymphocytes # (Auto) 1.0 Monocytes # (Auto) 0.8 Eosinophils # (Auto) 0.1 Basophils # (Auto) 0.0 CBC Comment AUTO DIFF Differential Comment AUTO DIFF CONFIRMED Platelet Estimate LOW Platelet Morphology Comment NORMAL Ovalocytes 1+ Urine Color YELLOW Urine Turbidity CLEAR Urine pH 7.0 Urine Specific [place] 1.007 Urine Protein TRACE Urine Glucose (UA) NEG Urine Ketones 10 Urine Occult Blood TRACE Urine Nitrite NEG Urine Bilirubin NEG Urine Urobilinogen LESS THAN 2.0 Urine Leukocyte Esterase NEG Urine RBC 1 Urine WBC 1 Microscopic Urinalysis Comment CULT NOT INDICATED Blood Urea Nitrogen 11 Creatinine 0.90 Random Glucose 87 Total Protein 7.5 Albumin 3.9 Calcium Level 9.5 Alkaline Phosphatase 90 Aspartate Amino Transf (AST/SGOT) 39 Alanine Aminotransferase (ALT/SGPT) 44 Total Bilirubin 0.5 Sodium Level 137 Potassium Level 3.4 Chloride Level 102 Carbon Dioxide Level 25.2 Anion Gap 10 Estimat Glomerular Filtration Rate 87 Lipase 987 Date/Time Source Procedure Growth Status 02/10/18 20:05 Blood Peripheral Aerobic Blood Culture Pending Received 02/10/18 20:05 Blood Peripheral Anaerobic Blood Culture Pending Received Result Diagram: 02/10/18200402/10/182004 Caprini VTE Risk Assessment Caprini VTE Risk Assessment: Mod/High Risk (score >= 2) Caprini Risk Assessment Model Point Value = 1 Point Value = 2 Point Value = 3 Point Value = 5 Age 41-60 Minor surgery BMI > 25 kg/m2 Swollen legs Varicose veins or History of unexplained or recurrent spontaneous Oral contraceptives or hormone replacement Sepsis (< 1 month) Serious lung disease, including pneumonia (< 1 month) Abnormal pulmonary function Acute myocardial infarction Congestive heart failure (< 1 month) History of inflammatory bowel disease Medical patient at bed rest Age 61-74 Arthroscopic surgery Major open surgery (> 45 min) Laparoscopic surgery (> 45 min) Malignancy Confined to bed (> 72 hours) Immobilizing plaster cast Central venous access Age >= 75 History of VTE Family history of VTE Factor V Leiden Prothrombin [id number] Lupus anticoagulant Anticardiolipin antibodies Elevated serum homocysteine Heparin-induced thrombocytopenia Other congenital or acquired thrombophilia Stroke (< 1 month) Elective arthroplasty Hip, pelvis, or leg fracture Acute spinal cord injury (< 1 month) Prophylaxis Regimen Total Risk Factor Score Risk Level Prophylaxis Regimen 0-1 Low Early ambulation 2 Moderate Order ONE of the following: *Sequential Compression Device (SCD) *Heparin 5000 units SQ BID 3-4 Higher Order ONE of the following medications: *Heparin 5000 units SQ TID *Enoxaparin/Lovenox 40 mg SQ daily (WT < 150 kg, CrCl > 30 mL/min) *Enoxaparin/Lovenox 30 mg SQ daily (WT < 150 kg, CrCl > 10-29 mL/min) *Enoxaparin/Lovenox 30 mg SQ BID (WT < 150 kg, CrCl > 30 mL/min) AND/OR *Sequential Compression Device (SCD) 5 or more Highest Order ONE of the following medications: *Heparin 5000 units SQ TID (Preferred with Epidurals) *Enoxaparin/Lovenox 40 mg SQ daily (WT < 150 kg, CrCl > 30 mL/min) *Enoxaparin/Lovenox 30 mg SQ daily (WT < 150 kg, CrCl > 10-29 mL/min) *Enoxaparin/Lovenox 30 mg SQ BID (WT < 150 kg, CrCl > 30 mL/min) AND *Sequential Compression Device (SCD) Assessment and Plan Assessment and Plan Assessment/plan: 1. Pancreatitis Lipase 987 CT of the abdomen/pelvis shows worsening metastatic disease in the liver, pancreas within normal limits, personally reviewed Nothing by mouth IV fluids Morphine for pain with Dilaudid for breakthrough 2. Metastatic lung cancer Patient known to Dr. Pruett, consulted, appreciate recommendations CT of the abdomen/pelvis shows worsening metastatic disease in the liver with no change in the bony metastatic disease 3. Hypertension/hyperlipidemia/CAD/hypothyroidism/lupus Continue home medications once tolerating by mouth 4. Hypokalemia Status post IV supplementation Follow-up BMP FEN NPO NS at 125 cc/hr Electrolytes: As above Heparin Cheryl Prieto MD Feb 11, 2018 03:00
[2018-02-11 03:56] VITALS: BP 103/66; PULSE 82; RESP 14; TEMP 96.8; O2SAT 96
[2018-02-11] MEDS: MORPHINE SULFATE 4 MG/ML INJ IV PUSH PRN ×4 (04:17→22:50)
[2018-02-11] MEDS: SODIUM CHLOR 0.9% 1000 ML INJ 1,000 ML IV SCH ×4 (07:07→20:06)
[2018-02-11] MEDS: HEPARIN SODIUM - SQ 10,000 UNITS/ML VIAL SQ SCH ×3 (07:07→20:05)
[2018-02-11 07:46] VITALS: BP 91/59; PULSE 77; RESP 18; TEMP 97.8; O2SAT 95
[2018-02-11] MEDS ORDERED: PADIMATE (CHAPSTICK) 4.5 GM TUBE TOPICAL PRN (08:30)
[2018-02-11 11:20] VITALS: BP 109/66; PULSE 82; RESP 18; TEMP 97.8; O2SAT 97
[2018-02-11 11:39] LABS: AUTOMATED NEUTROPHIL # 3.6 TH/MM3 (1.8-7.7); BASOPHIL % 0.4 % (0.0-2.0); EOSINOPHIL # 0.1 TH/MM3 (0-0.4); EOSINOPHIL % 2.4 % (0.0-4.0); HEMATOCRIT 36.5 % (39.0-51.0); LYMPH % 22.9 % (9.0-44.0); LYMPHOCYTE # 1.3 TH/MM3 (1.0-4.8); MEAN CELL VOLUME 89.7 FL (80.0-100.0); MEAN CORPUSCULAR HEMOGLOBIN 32.1 PG (27.0-34.0); MEAN CORPUSCULAR HGB CONC 35.8 % (32.0-36.0); MONO % 10.3 % (0.0-8.0); MONOCYTE # 0.6 TH/MM3 (0-0.9); PLATELET COUNT 143 TH/MM3 (150-450); RED BLOOD COUNT 4.06 MIL/MM3 (4.50-5.90); RED CELL DISTRIBUTION WIDTH 14.2 % (11.6-17.2); WHITE BLOOD COUNT 5.6 TH/MM3 (4.0-11.0)
--- NOTE | 2018-02-11 12:05 | MB ---
cc: Rohan De Dios MD,Liana Beasley MD DATE OF CONSULT: REASON FOR CONSULTATION: Patient with extensive small cell lung cancer admitted with abdominal pain and possible pancreatitis. PATIENT PROFILE: The patient is a 57-year-old white male. He is x1. He was born in [place]. He currently has moved to this area to live with his children. He has 2 sons and 2 daughters. Prior to this, he was in [place]. 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 He stopped smoking 2-1/2 months ago and had smoked 1-1/2 packs of cigarettes per day. There is no history of excessive alcohol intake. HISTORY OF PRESENT ILLNESS: The patient is a 57-year-old male who is not a good historian. He tells me that in June 2017, he was found to have a mass in the lung. He underwent bronchoscopy and a diagnosis of small cell lung cancer was made. He was treated with chemotherapy, but does not remember the name of the chemotherapy. He was subsequently found to have metastatic disease to the brain and was treated with radiation therapy which he indicates was concluded on 12/28/2017. He recently saw Dr. Pruett who is one of my partners and was scheduled for a return appointment this coming Tuesday, which is 3 days from now to make a decision regarding further treatment. During the past several days, he developed upper abdominal pain on the left side. This caused him to go to the emergency room. He had a CT scan of the abdomen and pelvis. I reviewed the images and actually showed him the images. He has multiple liver metastases, which have progressed when compared to the previous CT of the abdomen and pelvis dated 01/17/2018. An MRI of the brain on 02/09/2018 shows no evidence of disease and a chest x-ray done on 02/10/2018 shows mediastinal and right hilar lymphadenopathy and patchy right upper lobe parenchymal consolidation. LABORATORY STUDIES: Hemoglobin 15, white count 7000, platelets 150,000. Electrolytes, BUN and creatinine are unremarkable. AST is 39, ALT 44, alkaline phosphatase is 90. Serum lipase is 987. Since admission, he is feeling better. The pain is less. PAST SURGICAL HISTORY: 1. Coronary stent. 2. Surgery to left knee age 9. 3. Bronchoscopy establishing diagnosis of small cell cancer. PAST MEDICAL HISTORY: 1. Diagnosis small cell lung cancer made approximately 06/2017, having been treated with chemotherapy, subsequently developing metastatic disease to the brain treated with radiation. 2. Coronary artery disease. 3. History of lupus. MEDICATIONS PRIOR TO ADMISSION: 1. Allopurinol. 2. Aspirin 81 mg a day. 3. Atorvastatin. 4. Hydrochlorothiazide. 5. Hydroxychloroquine. 6. Levothyroxine. 7. Meloxicam as needed. 8. Metoprolol. ALLERGIES: NO KNOWN ALLERGIES. FAMILY HISTORY: Noncontributory. REVIEW OF SYSTEMS: No change in vision or hearing. Occasional mild chest discomfort. Mild exertional shortness of breath. He has upper abdominal pain primarily on the left side. Minimal nausea, no vomiting. No dysuria, frequency, hematuria. No significant bone pain. He indicates that he has some chronic numbness in the left side of the body. PHYSICAL EXAMINATION: GENERAL: Reveals a gentleman appearing older than stated age. VITAL SIGNS: Blood pressure is 91/60, respiratory rate 18, pulse 77, afebrile. O2 saturation 95 percent. HEENT: Head is normocephalic. Sclerae and conjunctivae normal. Oropharynx unremarkable. There is a large right supraclavicular node extending superiorly about 4 cm. It is firm and obviously malignant. HEART: Regular rhythm. LUNGS: Minimal wheeze. ABDOMEN: Soft. No enlargement of the liver. There is some slight tenderness in the left lateral upper abdominal area, not precisely corresponding to the pancreas. EXTREMITIES: Trace edema. MUSCULOSKELETAL: No bone pain. NEUROLOGIC: No focal weakness. Cognition and affect normal. SKIN: Normal. ASSESSMENT: The patient is a 57-year-old male with extensive small cell lung cancer. He has had previous metastatic disease to the brain, which has been treated successfully with radiation. He now has progressive disease involving the liver and neck. He presents with upper abdominal pain and may have a mild pancreatitis which appears to be improving. The major issue for this man is the progression of his small cell lung cancer and unfortunately second line treatments are not very effective. RECOMMENDATIONS: 1. Once his pain has either resolved or is minimal, he can go home on oral narcotics. 2. He will have a followup appointment with Dr. Pruett this coming Tuesday and decision will be made regarding further chemotherapy or immunotherapy. What is clear is he has progressive disease and small cell lung cancer is unfortunately very virulent after relapse. MD MORTEZA Yeager , 11:24 AM , 12:03 PM [facility]
[2018-02-11 12:06] LABS: BICARBONATE 24.7 MEQ/L (21.0-32.0); CALCIUM 8.1 MG/DL (8.5-10.1); CREATININE 0.72 MG/DL (0.60-1.30)
--- NOTE | 2018-02-11 12:17 | HHI.PR ---
Subjective Remarks Follow up visit abdominal pain, pancreatitis. Patient seen and examined today , family at the bedside. Reports abdominal pain has improved. Patient is irritable and really wanting to go home. States that he really does not want to spend time with the hospital. States he already has an appointment to see Dr. Pruett on Tuesday and he also has Scan scheduled Tuesday. Denies nausea, vomiting, abdominal cramping, diarrhea. Denies dysuria. Denies fevers, chills. Denies shortness of breath or dyspnea. Objective Vitals Vital Signs Date Time Temp Pulse Resp B/P (MAP) Pulse Ox O2 Delivery O2 Flow Rate FiO2 02/11/18 07:46 97.8 77 18 91/59 (70) 95 02/11/18 03:56 96.8 82 14 103/66 (78) 96 02/10/18 23:40 02/10/18 23:13 89 18 118/73 (88) 98 Room Air 02/10/18 20:22 99 Room Air 02/10/18 20:21 98.0 86 16 106/72 (83) 99 Room Air 02/10/18 17:42 98.7 112 20 90/69 (76) 98 I/O 02/10/18 02/10/18 02/10/18 02/11/18 02/11/18 02/11/18 07:00 15:00 23:00 07:00 15:00 23:00 Intake Total 1000 ml 2000 ml Balance 1000 ml 2000 ml Intake IV Total 1000 ml 2000 ml Result Diagram: 02/11/18 1104 02/11/18 1104 Imaging Last Impressions Chest X-Ray 02/10/18 1753 Signed Impressions: Service Date/Time: Saturday, February 10, 2018 19:50 - CONCLUSION: No significant change. Mediastinal and right hilar lymphadenopathy and patchy right upper lobe parenchymal consolidation again noted. Tuan Madrid MD Abdomen/Pelvis CT 02/10/18 0000 Signed Impressions: Service Date/Time: Saturday, February 10, 2018 21:14 - CONCLUSION: 1. Worsening metastatic disease of the liver. 2. Blastic bony metastatic disease is widespread but has a similar CT appearance to the comparison. No pathologic fracture demonstrated. Tuan Madrid MD Objective Remarks GENERAL: This is a thin appearing, well-developed patient, in no apparent distress. SKIN: Warm and dry. HEENT: Normocephalic. Pupils equal round and reactive. Nose without bleeding. Airway patent. Oral annemarie. NECK: Trachea midline. CARDIOVASCULAR: Regular rate and rhythm without murmurs, gallops, or rubs. RESPIRATORY: Clear to auscultation. Breath sounds equal bilaterally. No wheezes , rales, or rhonchi. GASTROINTESTINAL: Abdomen soft, nondistended. Bowel Sounds normoactive x4. Nontender to palpation. MUSCULOSKELETAL: Extremities without clubbing, cyanosis, or edema. NEUROLOGICAL: Awake and alert. Oriented to time, place, person. No focal neuro deficit. Moves all extremities. Normal speech. A/P Problem List: (1) Hyperlipidemia ICD Code: E78.5 - Hyperlipidemia, unspecified Status: Acute (2) Hypertension ICD Code: I10 - Essential (primary) hypertension Status: Acute (3) CAD (coronary artery disease) ICD Code: I25.10 - Atherosclerotic heart disease of [place] coronary artery without angina pectoris Status: Acute (4) Metastatic cancer ICD Code: C79.9 - Secondary malignant neoplasm of unspecified site Status: Acute Assessment and Plan Patient is 57-year-old male with past medical history significant for lung cancer with metastatic disease to the liver and brain, hypertension, hyperlipidemia, hypothyroidism, lupus and coronary artery disease presents to the emergency department for evaluation of epigastric pain. Pancreatitis Lipase 987 CT of the abdomen/pelvis shows worsening metastatic disease in the liver, pancreas within normal limits IV fluids Morphine for pain with Dilaudid for breakthrough Improving abdominal pain. Patient has been in IV fluids for more than 12 hours, will try on clear liquid as patient requesting to go home CHRISTIN due to scheduled appointments. If tolerating clears will advance diet. Discuss with RN. Metastatic lung cancer Patient known to Dr. Pruett, consulted, appreciate recommendations. Seen by Dr. Hernandez, mild pancreatitis appears to be improving, major issue is small cell lung cancer. Recommends once his pain is resolving minimal he can go home on oral narcotics. Follow-up with Dr. Pruett regarding further chemotherapy or immunotherapy. CT of the abdomen/pelvis shows worsening metastatic disease in the liver with no change in the bony metastatic disease Hypertension/hyperlipidemia/CAD/hypothyroidism/lupus Now with hypotension Continue IV fluids Will Continue home medications once tolerating by mouth, hold metoprolol Hypokalemia Potassium supplementation Follow-up BMP Oral candidiasis Start clotrimazole FEN NPO NS at 125 cc/hr Electrolytes: As above Heparin Discharge Planning Plan to DC home if clinically improved Sean Em Feb 11, 2018 12:17
[2018-02-11] MEDS: POTASSIUM CHLOR 20 MEQ PREMIX 100 ML IV SCH ×2 (13:20→15:53)
[2018-02-11] MEDS: CLOTRIMAZOLE 10 MG TROCHE BUCCAL SCH ×3 (14:33→20:05)
[2018-02-11 16:05] VITALS: BP 105/65; PULSE 71; RESP 18; TEMP 98.1; O2SAT 96
[2018-02-11 20:19] VITALS: BP 105/67; PULSE 75; RESP 16; TEMP 98.6; O2SAT 98
[2018-02-12 00:47] VITALS: BP 115/70; PULSE 66; RESP 18; TEMP 98.3; O2SAT 97
[2018-02-12] MEDS: MORPHINE SULFATE 4 MG/ML INJ IV PUSH PRN ×2 (03:31→06:12)
[2018-02-12 04:18] VITALS: BP 106/59; PULSE 67; RESP 17; TEMP 98.1; O2SAT 96
[2018-02-12] MEDS: CLOTRIMAZOLE 10 MG TROCHE BUCCAL SCH ×2 (06:00→09:29)
[2018-02-12] MEDS: HEPARIN SODIUM - SQ 10,000 UNITS/ML VIAL SQ SCH (06:12)
[2018-02-12] MEDS: SODIUM CHLOR 0.9% 1000 ML INJ 1,000 ML IV SCH (06:13)
[2018-02-12] MEDS ORDERED: oxyCODONE/ACETAMINOPHEN 10 MG/325 MG TAB PO PRN (07:30)
[2018-02-12] MEDS ORDERED: oxyCODONE/ACETAMINOPHEN 5 MG/325 MG TAB PO PRN (07:30)
--- NOTE | 2018-02-12 07:32 | HHI.DCPOC ---
Discharge Care Plan Diagnosis: (1) Hypertension (2) CAD (coronary artery disease) (3) Metastatic cancer (4) Pancreatitis Your Health Problems Are: Inflammation Difficulty to Swallow Chronic Pain Goals to Promote Your Health * To prevent worsening of your condition and complications * To maintain your health at the optimal level Directions to Meet Your Goals Take your medications as prescribed Follow your dietary instruction Follow activity as directed Keep your appointments as scheduled Take your immunizations and boosters as scheduled If your symptoms worsen call your PCP, if no PCP go to Urgent Care Center or Emergency Room Smoking is Dangerous to Your Health. Avoid second hand smoke Call the 24-hour hour crisis hotline for domestic abuse at Sean Em Feb 12, 2018 07:32
[2018-02-12] MEDS ORDERED: CLOT10TR BUCCAL (07:33)
[2018-02-12 08:56] VITALS: BP 113/76; PULSE 69; RESP 16; TEMP 98.2; O2SAT 97
[2018-02-12] MEDS ORDERED: HYDR-3583 PO (10:03)
--- NOTE | 2018-02-12 10:04 | HHI.DS ---
Discharge Summary Admission Date Feb 10, 2018 at 22:06 Discharge Date: Feb 12, 2018 Admitting Diagnosis PANCREATITIS, HYPOTENSION (1) Hyperlipidemia ICD Code: E78.5 - Hyperlipidemia, unspecified Status: Acute (2) Hypertension ICD Code: I10 - Essential (primary) hypertension Status: Acute (3) CAD (coronary artery disease) ICD Code: I25.10 - Atherosclerotic heart disease of elim ira coronary artery without angina pectoris Status: Acute (4) Metastatic cancer ICD Code: C79.9 - Secondary malignant neoplasm of unspecified site Status: Acute Procedures None Brief History - From Admission 57-year-old male with past medical history significant for lung cancer with metastatic disease to the liver and brain, hypertension, hyperlipidemia, hypothyroidism, lupus and coronary artery disease presents to the emergency department for evaluation of epigastric pain. The patient states the pain is nonradiating and constant in his epigastrium. He denies any associated nausea/ vomiting. It has been ongoing for several days. The patient does report an associated anorexia and abdominal cramping. He also states he feels more weak than usual. He reports baseline shortness of breath and chest pressure that is unchanged and secondary to his lung cancer. CBC/BMP: 02/11/18 1104 02/11/18 1104 Significant Findings Laboratory Tests Test 02/10/18 20:05 02/11/18 11:04 Mean Corpuscular Hemoglobin Concent 36.1 % (32.0-36.0) Mean Platelet Volume 6.1 FL (7.0-11.0) Neutrophils (%) (Auto) 74.3 % (16.0-70.0) Monocytes (%) (Auto) 10.7 % (0.0-8.0) 10.3 % (0.0-8.0) Platelet Estimate LOW (NORMAL) Ovalocytes 1+ (NORMAL) Urine Ketones 10 mg/dL (NEG) Urine Occult Blood TRACE (NEG) Aspartate Amino Transf (AST/SGOT) 39 U/L (15-37) Potassium Level 3.4 MEQ/L (3.5-5.1) 3.3 MEQ/L (3.5-5.1) Estimat Glomerular Filtration Rate 87 ML/MIN (>89) Lipase 987 U/L (73-393) 2149 U/L (73-393) Red Blood Count 4.06 MIL/MM3 (4.50-5.90) Hematocrit 36.5 % (39.0-51.0) Platelet Count 143 TH/MM3 (150-450) Random Glucose 63 MG/DL (74-106) Calcium Level 8.1 MG/DL (8.5-10.1) Imaging Last Impressions Chest X-Ray 02/10/18 1753 Signed Impressions: Service Date/Time: Saturday, February 10, 2018 19:50 - CONCLUSION: No significant change. Mediastinal and right hilar lymphadenopathy and patchy right upper lobe parenchymal consolidation again noted. Tuan Madrid MD Abdomen/Pelvis CT 02/10/18 0000 Signed Impressions: Service Date/Time: Saturday, February 10, 2018 21:14 - CONCLUSION: 1. Worsening metastatic disease of the liver. 2. Blastic bony metastatic disease is widespread but has a similar CT appearance to the comparison. No pathologic fracture demonstrated. Tuan Madrid MD PE at Discharge GENERAL: This is a thin appearing, well-developed patient, in no apparent distress. SKIN: Warm and dry. HEENT: Normocephalic. Pupils equal round and reactive. Nose without bleeding. Airway patent. Oral annemarie. NECK: Trachea midline. CARDIOVASCULAR: Regular rate and rhythm without murmurs, gallops, or rubs. RESPIRATORY: Clear to auscultation. Breath sounds equal bilaterally. No wheezes , rales, or rhonchi. GASTROINTESTINAL: Abdomen soft, nondistended. Bowel Sounds normoactive x4. Nontender to palpation. MUSCULOSKELETAL: Extremities without clubbing, cyanosis, or edema. NEUROLOGICAL: Awake and alert. Oriented to time, place, person. No focal neuro deficit. Moves all extremities. Normal speech. Pt update on day of discharge Patient is in the chair, he was noted ambulating without any problems. Says he feels much better and he wants to go home eating well no nausea vomiting no abdominal pain no diarrhea constipation. Hospital Course Patient is 57-year-old male with past medical history significant for lung cancer with metastatic disease to the liver and brain, hypertension, hyperlipidemia, hypothyroidism, lupus and coronary artery disease presents to the emergency department for evaluation of epigastric pain. Pancreatitis Lipase 987 on admission was noted to worsen however the patient is clinically improved. He wants to go home. Cleared by consultants. He is tolerating food he is eating well. CT of the abdomen/pelvis shows worsening metastatic disease in the liver, pancreas within normal limits IV fluids Morphine for pain with Dilaudid for breakthrough Improving abdominal pain. Patient has been in IV fluids for more than 12 hours, will try on clear liquid as patient requesting to go home CHRISTIN due to scheduled appointments. If tolerating clears will advance diet. Discuss with RN. Metastatic lung cancer Patient known to Dr. Pruett, consulted, appreciate recommendations. Seen by Dr. Hernandez, mild pancreatitis appears to be improving, major issue is small cell lung cancer. Recommends once his pain is resolving minimal he can go home on oral narcotics. Follow-up with Dr. Pruett regarding further chemotherapy or immunotherapy. CT of the abdomen/pelvis shows worsening metastatic disease in the liver with no change in the bony metastatic disease Hypertension/hyperlipidemia/CAD/hypothyroidism/lupus Now with hypotension Continue IV fluids Will Continue home medications once tolerating by mouth, hold metoprolol Hypokalemia Potassium supplementation Follow-up BMP Oral candidiasis Start clotrimazole FEN NPO NS at 125 cc/hr Electrolytes: As above Heparin Discharge Planning Plan to DC home if clinically improved Patient improved, the patient was discharged home in stable condition to follow- up with PCP and consultants as outpatient. Has an appointment with his oncologist tomorrow and further workup Pt Condition on Discharge: Stable Discharge Disposition: Discharge Home Discharge Time: > 30 minutes Discharge Instructions DIET: Follow Instructions for: As Tolerated, No Restrictions Activities you can perform: Regular-No Restrictions Activities to Avoid: Driving Follow up Referrals: Oncology - 1 Week PCP Follow-up - 2-3 Days New Medications: Clotrimazole Jeremy (Clotrimazole Jeremy) 10 Mg Troc 10 MG BUCCAL 5 TIMES A DAY for Oral Thrush, #30 JEREMY Continued Medications: Allopurinol (Allopurinol) 100 Mg Tab 100 MG PO DAILY for Gout, #30 TAB [address] (Aspirin EC) 81 Mg Tabdr 81 MG PO DAILY, TAB 0 Refills Atorvastatin (Atorvastatin) 80 Mg Tab 80 MG PO HS for Cholesterol Management, #30 TAB 0 Refills Hydrochlorothiazide (Hydrochlorothiazide) 12.5 Mg Cap 12.5 MG PO DAILY, #30 CAP 0 Refills Hydrocodone/Acetaminophen (Hydrocodone-Acetamin 10-325 mg) 10 Mg-325 Mg Tablet 1 TAB PO Q4-6H PRN for PAIN 1 TO 10 AND/OR AGITATION, #30 TAB (This prescription has been renewed) Hydroxychloroquine (Hydroxychloroquine) 200 Mg Tab 200 MG PO DAILY, #30 TAB 0 Refills Takw with food Levothyroxine (Levothyroxine) 100 Mcg Tab 100 MCG PO DAILY for Thyroid, #30 TAB 0 Refills Meloxicam (Meloxicam) 15 Mg Tab 15 MG PO DAILY for Arthritis Pain, #30 TAB 0 Refills Metoprolol Tartrate (Metoprolol Tartrate) 50 Mg Tab 50 MG PO BID, #60 TAB 0 Refills Sonal Myles MD Feb 12, 2018 10:03
[2018-02-12 12:51] LABS: BICARBONATE 26.4 MEQ/L (21.0-32.0); CALCIUM 8.3 MG/DL (8.5-10.1); CREATININE 0.71 MG/DL (0.60-1.30)
[2018-02-12 12:55] VITALS: BP 126/60; PULSE 80; RESP 16; TEMP 98.5; O2SAT 97
== END 2018-02-12 13:47 | disposition home or self-care (01) ==
LOC: NEPC 17:33 → NEDA 22:06 → NEPHCDU 23:47
PROVIDERS: ADMIT Hospitalist; ATTEND Hospitalist
DX: K85.90 Acute pancreatitis without necrosis or infection, unspecified (principal); I95.9 Hypotension, unspecified; C78.7 Secondary malignant neoplasm of liver and intrahepatic bile duct; C79.31 Secondary malignant neoplasm of brain; C34.90 Malignant neoplasm of unspecified part of unspecified bronchus or lung; I25.10 Atherosclerotic heart disease of native coronary artery without angina pectoris; R06.02 Shortness of breath; R07.9 Chest pain, unspecified; I10 Essential (primary) hypertension; M50.30 Other cervical disc degeneration, unspecified cervical region; I25.2 Old myocardial infarction; R00.0 Tachycardia, unspecified; R59.0 Localized enlarged lymph nodes; B37.0 Candidal stomatitis; E87.6 Hypokalemia; E78.5 Hyperlipidemia, unspecified; E03.9 Hypothyroidism, unspecified; F17.200 Nicotine dependence, unspecified, uncomplicated; G89.29 Other chronic pain; Z95.5 Presence of coronary angioplasty implant and graft
CPT/HCPCS: 71045; 74177; 80048; 80053; 81001; 83690; 85025; 87040; 96361; 96365; 96366; 96372; 96375; 96376; 99285; G0378; J1170; J1644; J2270; J2405; J3480; J7030; Q9967

== ENCOUNTER 2018-02-28 20:00 | Emergency (ER) | payer MEDICAID ==
[~2018-02-28] VITALS: Ht 182.9 cm; Wt 59.5 kg
[~2018-02-28 20:00] MED LIST changes: +CLOT10TR BUCCAL
[2018-02-28 20:04] VITALS: BP 107/62; PULSE 112; RESP 20; TEMP 97.4; O2SAT 99
[2018-02-28 21:47] LABS: AUTOMATED NEUTROPHIL # 8.9 TH/MM3 (1.8-7.7); BASOPHIL % 0.3 % (0.0-2.0); EOSINOPHIL # 0.1 TH/MM3 (0-0.4); EOSINOPHIL % 0.8 % (0.0-4.0); HEMATOCRIT 42.4 % (39.0-51.0); LYMPH % 9.7 % (9.0-44.0); LYMPHOCYTE # 1.1 TH/MM3 (1.0-4.8); MEAN CELL VOLUME 88.5 FL (80.0-100.0); MEAN CORPUSCULAR HEMOGLOBIN 31.3 PG (27.0-34.0); MEAN CORPUSCULAR HGB CONC 35.3 % (32.0-36.0); MEAN PLATELET VOLUME 6.5 FL (7.0-11.0); MONO % 9.2 % (0.0-8.0); PLATELET COUNT 147 TH/MM3 (150-450); RED BLOOD COUNT 4.79 MIL/MM3 (4.50-5.90); RED CELL DISTRIBUTION WIDTH 14.7 % (11.6-17.2); WHITE BLOOD COUNT 11.1 TH/MM3 (4.0-11.0)
[2018-02-28 22:02] LABS: INTERNATIONAL NORMALIZED RATIO 1.1 RATIO; PROTHROMBIN TIME - PATIENT 11.1 SEC (9.8-11.6)
[2018-02-28 22:08] VITALS: BP 102/73; PULSE 112; RESP 18; O2SAT 99
[2018-02-28 22:11] LABS: ALBUMIN 3.8 GM/DL (3.4-5.0); ALT (GPT) 80 U/L (12-78); AST (GOT) 81 U/L (15-37); BICARBONATE 24.1 MEQ/L (21.0-32.0); BLOOD UREA NITROGEN 12 MG/DL (7-18); CALCIUM 9.2 MG/DL (8.5-10.1); CHLORIDE 95 MEQ/L (98-107); GLOMERULAR FILTRATION RATE 87 ML/MIN (>89); GLUCOSE,RANDOM 73 MG/DL (74-106); SODIUM (NA) 134 MEQ/L (136-145)
[2018-02-28 22:13] LABS: ALKALINE PHOSPHATASE 116 U/L (45-117); TOTAL BILIRUBIN ADULT 1.2 MG/DL (0.2-1.0); TOTAL PROTEIN 7.5 GM/DL (6.4-8.2)
--- NOTE | 2018-02-28 22:38 | PD ---
HPI Chief Complaint: Pain: Acute or Chronic Time Seen by Provider: 22:23 Travel History International Travel<30 days: No Contact w/Intl Traveler<30days: No Traveled to known affect area: No History of Present Illness HPI The patient is a 57 year old male who presents to the [facility] emergency department with a history of increased pain in his neck and it area of metastasis that began over the last 2 days. He reports that he ran out of his hydrocodone prescription. He is followed by Dr. Pruett for his oncology care. He reports that he recently moved back to the area from [place]. He reports that he had leftover medication from his prior oncologist, therefore he forgot to get a new prescription from Dr. Pruett. He reports that he last had chemotherapy on Tuesday 1 week ago. He reports that he is currently on a new regimen. He reports that he has generalized weakness, decreased appetite, and fatigue. He denies having any vomiting. He reports that nausea is well controlled with the Zofran he is on. He reports that he does have some difficulty swallowing solids, however he has no difficulty swallowing liquids. On review of systems, he denies having any recent fevers, cough, congestion, chest pain, shortness of breath, abdominal pain, vomiting, diarrhea, urinary symptoms, or neurologic symptoms. [facility] Past Medical History Narrative Medical The patient's past medical history is significant for arthritis, history of small cell lung carcinoma with metastasis to the brain, mediastinum, lymph nodes , and liver, history of COPD, coronary artery disease, history of myocardial infarction, hypertension, lupus, hypothyroid disorder. Autoimmune Disease: Yes (LUPUS) Blood Disorders: No Cancer: Yes (LUNG WITH METS BRAIN, CERVICAL) Cardiac Catheterization: Yes Cardiovascular Problems: Yes High Cholesterol: Yes Chemotherapy: Yes Chest Pain: Yes Congestive Heart Failure: No Cerebrovascular Accident: No Coronary Artery Disease: Yes Diabetes: No Diminished Hearing: No Endocrine: No Gastrointestinal Disorders: Yes Genitourinary: No Hypertension: Yes Immune Disorder: No Musculoskeletal: Yes (CERVICAL DDD) Neurologic: No Psychiatric: No Reproductive: No Respiratory: Yes Immunizations Current: Yes Myocardial Infarction: Yes (AUG 2014) Seizures: No Thyroid Disease: Yes (HYPO) Ulcer: No Past Surgical History Narrative Surgical The patient's past surgical history is significant for having a tumor removed from his left knee, history of coronary artery catheterization with stent placement 2013, history of angioplasty in 1997. AICD: No Arteriovenous Shunt: No Cardiac Surgery: Yes (ANGIOPLASTY IN 1997) Coronary Stent: Yes (CIRCUMFLEX ARTERY AUG 2014) Insulin Pump: No Joint Replacement: No Pacemaker: No Other Surgery: Yes (l knee tumor removed) Social History Alcohol Use: No Tobacco Use: Yes Substance Use: No Allergies-Medications (Allergen,Severity, Reaction): Coded Allergies: No Known Allergies (Verified Allergy, Unknown, 01/25/18) Reported Meds & Prescriptions Reported Meds & Active Scripts Active Hydrocodone-Acetamin 10-325 mg (Hydrocodone/Acetaminophen) 10 Mg-325 Mg Tablet 1 Tab PO Q4-6H PRN Clotrimazole Lara (Clotrimazole) 10 Mg Troc 10 Mg BUCCAL 5 TIMES A DAY Reported Meloxicam 15 Mg Tab 15 Mg PO DAILY Atorvastatin (Atorvastatin Calcium) 80 Mg Tab 80 Mg PO HS Hydroxychloroquine (Hydroxychloroquine Sulfate) 200 Mg Tab 200 Mg PO DAILY Takw with food Hydrochlorothiazide 12.5 Mg Cap 12.5 Mg PO DAILY Allopurinol 100 Mg Tab 100 Mg PO DAILY Levothyroxine (Levothyroxine Sodium) 100 Mcg Tab 100 Mcg PO DAILY Metoprolol Tartrate 50 Mg Tab 50 Mg PO BID Aspirin EC (Aspirin) 81 Mg Tabdr 81 Mg PO DAILY Review of Systems Except as stated in HPI: all other systems reviewed are Neg General / Constitutional: No: Fever Eyes: No: Visual changes HENT: No: Headaches Cardiovascular: No: Chest Pain or Discomfort Respiratory: No: Shortness of Breath Gastrointestinal: Positive: Nausea, Loss of Appetite, No: Vomiting, Diarrhea, Abdominal Pain, Changes in Bowel Habits, Indigestion Genitourinary: No: Dysuria Musculoskeletal: No: Pain Skin: No Rash Neurologic: Positive: Weakness (Generalized weakness), No: Change in Mentation , Slurred Speech, Sensory Disturbance Psychiatric: No: Depression Endocrine: No: Polydipsia Hematologic/Lymphatic: No: Easy Bruising Physical Exam Narrative General: The patient is a well-developed well-nourished male in no acute distress. Head and Neck exam: Head is normocephalic atraumatic. Eyes: EOMI, pupils are equal round and reactive to light. Nose: Midline septum with pink mucous membranes Mouth: Dentition unremarkable. Moist mucus membranes. Posterior oropharynx is not erythematous. No tonsillar hypertrophy. Uvula midline. Airway patent. Neck: The patient reports having a mass in the right side of his neck. The patient has a palpable mass with tenderness on palpation along the lower aspect of the anterior cervical chain. There is no fluctuance noted. No nuchal rigidity. No thyromegaly. Cardiovascular: Sinus tachycardia in the low 100s without murmurs, gallops, or rubs. No pulse deficit to the extremities on simultaneous auscultation and palpation of his radial artery. Lungs: Clear to auscultation bilaterally. No wheezes, rhonchi, or rales. Abdomen: Soft, without tenderness to palpation in all 4 quadrants of the abdomen. No guarding, rebound, or rigidity. Normal bowel sounds are audible. No tenderness on palpation of McBurney's point Extremities: No clubbing, cyanosis, or edema. 2+ pulses in all 4 extremities. No calf tenderness on palpation. Back: No costovertebral angle tenderness to palpation. Neurologic Exam: Grossly nonfocal. Skin Exam: No rash noted. Intact skin that is warm and dry. Data Data Last Documented VS Vital Signs Date Time Temp Pulse Resp B/P (MAP) Pulse Ox O2 Delivery O2 Flow Rate FiO2 02/28/18 23:01 99 18 106/74 (85) 96 Room Air 02/28/18 20:04 97.4 Orders Orders Complete Blood Count With Diff (02/28/18 20:06) Comprehensive Metabolic Panel (02/28/18 20:06) Prothrombin Time / Inr (Pt) (02/28/18 20:06) Act Partial Throm Time (Ptt) (02/28/18 20:06) Urinalysis - C+S If Indicated (02/28/18 20:06) Blood Glucose (02/28/18 22:25) Sodium Chlor 0.9% 1000 Ml Inj (Ns 1000 M (02/28/18 22:45) Ondansetron Inj (Zofran Inj) (02/28/18 22:45) Hydromorphone Pf Inj (Dilaudid Pf Inj) (02/28/18 22:45) Sodium Chlor 0.9% 1000 Ml Inj (Ns 1000 M (02/28/18 23:30) Potassium Bicarb Eff (Effer-K Eff) (02/28/18 23:30) Oral Rehydration (02/28/18 23:23) Labs Laboratory Tests Test 02/28/18 21:20 White Blood Count 11.1 TH/MM3 Red Blood Count 4.79 MIL/MM3 Hemoglobin 15.0 GM/DL Hematocrit 42.4 % Mean Corpuscular Volume 88.5 FL Mean Corpuscular Hemoglobin 31.3 PG Mean Corpuscular Hemoglobin Concent 35.3 % Red Cell Distribution Width 14.7 % Platelet Count 147 TH/MM3 Mean Platelet Volume 6.5 FL Neutrophils (%) (Auto) 80.0 % Lymphocytes (%) (Auto) 9.7 % Monocytes (%) (Auto) 9.2 % Eosinophils (%) (Auto) 0.8 % Basophils (%) (Auto) 0.3 % Neutrophils # (Auto) 8.9 TH/MM3 Lymphocytes # (Auto) 1.1 TH/MM3 Monocytes # (Auto) 1.0 TH/MM3 Eosinophils # (Auto) 0.1 TH/MM3 Basophils # (Auto) 0.0 TH/MM3 CBC Comment DIFF FINAL Differential Comment Prothrombin Time 11.1 SEC Prothromb Time International Ratio 1.1 RATIO Activated Partial Thromboplast Time 25.4 SEC Blood Urea Nitrogen 12 MG/DL Creatinine 0.90 MG/DL Random Glucose 73 MG/DL Total Protein 7.5 GM/DL Albumin 3.8 GM/DL Calcium Level 9.2 MG/DL Alkaline Phosphatase 116 U/L Aspartate Amino Transf (AST/SGOT) 81 U/L Alanine Aminotransferase (ALT/SGPT) 80 U/L Total Bilirubin 1.2 MG/DL Sodium Level 134 MEQ/L Potassium Level 3.4 MEQ/L Chloride Level 95 MEQ/L Carbon Dioxide Level 24.1 MEQ/L Anion Gap 15 MEQ/L Estimat Glomerular Filtration Rate 87 ML/MIN MDM Medical Decision Making Medical Screen Exam Complete: Yes Emergency Medical Condition: Yes Medical Record Reviewed: Yes Differential Diagnosis Dehydration, versus electrolyte derangements, versus exacerbation of of cancer related pain due to running out of pain medication Narrative Course During the course of the patient's emergency department visit, the patient's history, examination, and differential diagnosis were reviewed with the patient. The patient was placed on a campus monitor with oximetry and frequent blood pressure monitoring. The patient had IV access obtained and blood work sent for analysis. The patient was initially provided normal saline 1 L IV fluid bolus, Dilaudid 1 mg IV, Zofran 4 mg IV. The patient's laboratory studies were reviewed and remarkable for a white count of 11.1, hemoglobin 15, platelets 147 with 80 neutrophils, 9.2 monocytes, CMP is remarkable for sodium of 134, potassium 3.4, chloride 95, GFR of 87, glucose 73 which was repeated at the patient's bedside and noted to be 83. Total bilirubin 1.2, AST 81, ALT 80, PT PTT within normal limits. Review of the electronic medical record reveals that the patient underwent a CT scan of the soft tissues of the neck with IV contrast on February 13, 2018 which revealed a large 4 cm matted bogdan mass beginning in the right subclavicular region and extending upwards in the neck. This is pathologic adenopathy. This arises from a large bogdan mass seen between the great vessels and sternum. There is a small 1.8 cm node seen in the left. These nodes are just under the brachial plexus. Compared to the CT scan done January 17, 2018, metastatic adenopathy is advancing in the neck. I encouraged the patient to follow-up with his oncologist in the morning, Dr. Pruett. The patient reports that he ran out of his pain medication. The patient will be given a prescription for a 1 day supply to hold him over until he speaks to his oncologist regarding being out of his medication. The patient was able to tolerate p.o. hydration. The patient is resting comfortably and feels better, is alert and in no distress. The patient's results and examination findings were discussed with the patient. The repeat examination is unremarkable and benign. The history, exam, diagnostic testing, and current condition do not suggest any significant pathology to warrant further testing, continued ED treatment, admission, or surgical evaluation at this point. The vital signs have been stable. The patient does not have uncontrollable pain, intractable vomiting, or other significant symptoms. The patient's condition is stable and appropriate for discharge. The patient will pursue further outpatient evaluation with a primary care physician or other designated or consulting physician as indicated in the discharge instructions. The patient expressed understanding and was agreeable with this plan. Diagnosis Primary Impression: Cancer related pain Additional Impression: Dehydration Referrals: Liana Pruett MD 1 day Patient Instructions: Dehydration (ED), General Instructions, Pharmacological Management of Cancer Pain (ED) Med/Other Pt SpecificInfo: Prescription(s) given Scripts Hydrocodone/Acetaminophen (Hydrocodone-Acetamin 10-325 mg) 10 Mg-325 Mg Tablet 1 TAB PO Q4-6H Y for PAIN 1 TO 10 AND/OR AGITATION, #6 TAB Prov: Leah Arcos MD 02/28/18 Disposition: 01 DISCHARGE HOME Condition: Stable Leah Arcos MD Feb 28, 2018 22:38
[2018-02-28] MEDS ORDERED: SODIUM CHLOR 0.9% 1000 ML INJ 1,000 ML IV ONE ×2 (22:45→23:30)
[2018-02-28] MEDS ORDERED: ONDANSETRON HCL 4 MG/2 ML VIAL IV ONE (22:45)
[2018-02-28] MEDS ORDERED: HYDROmorphone HCL PF 2 MG/ML VIAL IV PUSH ONE (22:45)
[2018-02-28 23:01] VITALS: BP 106/74; PULSE 99; RESP 18; O2SAT 96
[2018-02-28] MEDS ORDERED: POTASSIUM BICARBONATE 25 MEQ EFFERVESCENT TAB PO ONE (23:30)
[2018-02-28] MEDS ORDERED: HYDR-3583 PO (23:49)
== END 2018-03-01 01:11 | disposition home or self-care (01) ==
LOC: NEPC 20:00
DX: G89.3 Neoplasm related pain (acute) (chronic) (principal); C77.0 Secondary and unspecified malignant neoplasm of lymph nodes of head, face and neck; C34.90 Malignant neoplasm of unspecified part of unspecified bronchus or lung; C79.31 Secondary malignant neoplasm of brain; E86.0 Dehydration; M32.9 Systemic lupus erythematosus, unspecified; E78.00 Pure hypercholesterolemia, unspecified; I25.10 Atherosclerotic heart disease of native coronary artery without angina pectoris; I10 Essential (primary) hypertension; I25.2 Old myocardial infarction; E03.9 Hypothyroidism, unspecified; J44.9 Chronic obstructive pulmonary disease, unspecified; Z95.5 Presence of coronary angioplasty implant and graft; Z72.0 Tobacco use
CPT/HCPCS: 80053; 85025; 85610; 85730; 96361; 96374; 96375; 99284; J1170; J2405; J7030

== ENCOUNTER 2018-03-03 19:49 | Inpatient (IN) | payer MEDICAID ==
[~2018-03-03] VITALS: Ht 182.9 cm; Wt 58.0 kg
[2018-03-03 19:54] VITALS: BP 102/71; PULSE 110; RESP 18; TEMP 97.8; O2SAT 98
--- NOTE | 2018-03-03 20:35 | PD ---
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 Pruett.. she is starting immunotherapy first dose was February 20 Pt was now being called by her to come in to ER because his Labs are elevated. he is having worsening severe pain in his R neck and mild abdomen pain. He has also the is coming in because he is feeling weak mildly confused pain in the right anterior neck and was told by MD that he has abnormal labs( not sure which one) .. he had radiation and chemo in the past and recently started immunotherapy.. is bedside he has been diagnosed lung to brain and liver.. and began being treated by the oncologist Flynn [facility] Past Medical History Autoimmune Disease: Yes (LUPUS) Blood Disorders: No Cancer: Yes (LUNG WITH METS BRAIN, CERVICAL) Cardiac Catheterization: Yes Cardiovascular Problems: Yes High Cholesterol: Yes Chemotherapy: Yes Chest Pain: Yes Congestive Heart Failure: No Cerebrovascular Accident: No Coronary Artery Disease: Yes Diabetes: No Diminished Hearing: No Endocrine: No Gastrointestinal Disorders: Yes Genitourinary: No Hypertension: Yes Immune Disorder: No Musculoskeletal: Yes (CERVICAL DDD) Neurologic: No Psychiatric: No Reproductive: No Respiratory: Yes Immunizations Current: Yes Myocardial Infarction: Yes (AUG 2014) Seizures: No Thyroid Disease: Yes (HYPO) Ulcer: No Influenza Vaccination: No Past Surgical History AICD: No Arteriovenous Shunt: No Cardiac Surgery: Yes (ANGIOPLASTY IN 1997) Coronary Stent: Yes (CIRCUMFLEX ARTERY AUG 2014) Insulin Pump: No Joint Replacement: No Pacemaker: No Other Surgery: Yes (l knee tumor removed) Social History Alcohol Use: No Tobacco Use: Yes Substance Use: No Allergies-Medications (Allergen,Severity, Reaction): Coded Allergies: No Known Allergies (Verified Allergy, Unknown, 03/04/18) Reported Meds & Prescriptions Reported Meds & Active Scripts Active Clotrimazole Lara (Clotrimazole) 10 Mg Troc 10 Mg BUCCAL 5 TIMES A DAY Reported Hydroxychloroquine (Hydroxychloroquine Sulfate) 200 Mg Tab 200 Mg PO DAILY Takw with food Hydrochlorothiazide 12.5 Mg Cap 12.5 Mg PO DAILY Allopurinol 100 Mg Tab 100 Mg PO DAILY Levothyroxine (Levothyroxine Sodium) 100 Mcg Tab 100 Mcg PO DAILY Metoprolol Tartrate 50 Mg Tab 50 Mg PO BID Review of Systems Except as stated in HPI: all other systems reviewed are Neg Physical Exam Narrative GENERAL: awake alert slightly thin SKIN: Warm and dry. HEAD: Atraumatic. Normocephalic. EYES: Pupils equal and round. No scleral icterus. No injection or drainage. ENT: No nasal bleeding or discharge. Mucous membranes pink and moist. NECK: Trachea midline. No JVD. pain and fullness to right sternocloid muscle insertion clavicle area CARDIOVASCULAR: Regular rate and rhythm. RESPIRATORY: No accessory muscle use. Clear to auscultation. Breath sounds equal bilaterally. GASTROINTESTINAL: Abdomen soft, minimally tender, nondistended. Hepatic and splenic margins not palpable. MUSCULOSKELETAL: Extremities without clubbing, cyanosis, or edema. No obvious deformities. NEUROLOGICAL: Awake and alert. No obvious cranial nerve deficits. Motor grossly within normal limits. Five out of 5 muscle strength in the arms and legs. Normal speech. PSYCHIATRIC: Appropriate mood and affect; insight and judgment normal. Data Data Last Documented VS Orders Orders Complete Blood Count With Diff (03/03/18 20:40) Comprehensive Metabolic Panel (03/03/18 20:40) Ckmb (Isoenzyme) Profile (03/03/18 20:40) Troponin I (03/03/18 20:40) Lipase (03/03/18 20:40) Ammonia (03/03/18 20:40) Lactic Acid (03/03/18 20:40) Ondansetron Inj (Zofran Inj) (03/03/18 21:00) Morphine Inj (Morphine Inj) (03/03/18 21:00) CKMB (03/03/18 20:45) CKMB% (03/03/18 20:45) Dext 5%-Nacl 0.9% 1000 Ml Inj (D5w-Ns 10 (03/03/18 21:45) Hydromorphone Pf Inj (Dilaudid Pf Inj) (03/03/18 21:45) Hydromorphone Pf Inj (Dilaudid Pf Inj) (03/03/18 21:54) Comprehensive Metabolic Panel (03/03/18 23:54) Lipase (03/03/18 23:54) Amylase (03/03/18 23:54) Ct Soft Tiss Neck W Iv Cont (03/04/18 ) Ct Abd/Pel W Iv Contrast(Rout) (03/04/18 ) Sodium Chlor 0.9% 1000 Ml Inj (Ns 1000 M (03/04/18 02:00) Hydromorphone Pf Inj (Dilaudid Pf Inj) (03/04/18 03:15) Hydromorphone Pf Inj (Dilaudid Pf Inj) (03/04/18 03:17) Iohexol 350 Inj (Omnipaque 350 Inj) (03/04/18 03:53) Consult Medical Oncology (03/04/18 ) Admit To Inpatient (03/04/18 ) Vital Signs (Adult) Q4H (03/04/18 05:30) Activity Oob Ad Diane (03/04/18 05:30) Intake + Output ZAK.QSHIFT (03/04/18 05:30) Diet Npo (03/04/18 Breakfast) Sodium Chlor 0.9% 1000 Ml Inj (Ns 1000 M (03/04/18 05:30) Sodium Chloride 0.9% Flush (Ns Flush) (03/04/18 05:30) Sodium Chloride 0.9% Flush (Ns Flush) (03/04/18 09:00) Ondansetron Inj (Zofran Inj) (03/04/18 05:30) Comprehensive Metabolic Panel (03/05/18 06:00) Complete Blood Count With Diff (03/05/18 06:00) Lipase (03/05/18 06:00) Case Management Consult (03/04/18 05:30) Scd Bilateral/Knee High ZAK.BID (03/04/18 05:30) Jaime Bilateral/Knee High ZAK.QSHIFT (03/04/18 05:31) Acetaminophen (Tylenol) (03/04/18 05:30) Oxycodone (Roxicodone) (03/04/18 05:30) Docusate Sodium-Senna (Melany-Colace) (03/04/18 09:00) Magnesium Hydroxide Liq (Milk Of Magnesi (03/04/18 05:30) Sennosides (Senokot) (03/04/18 05:30) Bisacodyl Supp (Dulcolax Supp) (03/04/18 05:30) Lactulose Liq (Lactulose Liq) (03/04/18 05:30) Inpatient Certification (03/04/18 ) Pantoprazole Inj (Protonix Inj) (03/04/18 06:00) Hydromorphone Pf Inj (Dilaudid Pf Inj) (03/04/18 06:00) (Hub Use Only)Inp Phy Cons/Ref (03/04/18 ) Admit Order (Ed Use Only) (03/04/18 06:30) Labs Laboratory Tests Test 03/03/18 20:45 03/04/18 00:30 White Blood Count 10.0 TH/MM3 Red Blood Count 4.93 MIL/MM3 Hemoglobin 15.6 GM/DL Hematocrit 43.2 % Mean Corpuscular Volume 87.6 FL Mean Corpuscular Hemoglobin 31.6 PG Mean Corpuscular Hemoglobin Concent 36.0 % Red Cell Distribution Width 15.1 % Platelet Count 158 TH/MM3 Mean Platelet Volume 7.0 FL Neutrophils (%) (Auto) 83.3 % Lymphocytes (%) (Auto) 8.3 % Monocytes (%) (Auto) 7.6 % Eosinophils (%) (Auto) 0.5 % Basophils (%) (Auto) 0.3 % Neutrophils # (Auto) 8.3 TH/MM3 Lymphocytes # (Auto) 0.8 TH/MM3 Monocytes # (Auto) 0.8 TH/MM3 Eosinophils # (Auto) 0.1 TH/MM3 Basophils # (Auto) 0.0 TH/MM3 CBC Comment AUTO DIFF Differential Comment AUTO DIFF CONFIRMED Platelet Estimate LOW Platelet Morphology Comment NORMAL Ovalocytes 1+ Blood Urea Nitrogen 12 MG/DL 12 MG/DL Creatinine 0.92 MG/DL 0.87 MG/DL Random Glucose 73 MG/DL 164 MG/DL Total Protein 8.0 GM/DL 6.4 GM/DL Albumin 3.9 GM/DL 3.1 GM/DL Calcium Level 9.4 MG/DL 8.1 MG/DL Alkaline Phosphatase 140 U/L 108 U/L Aspartate Amino Transf (AST/SGOT) 72 U/L 58 U/L Alanine Aminotransferase (ALT/SGPT) 75 U/L 62 U/L Total Bilirubin 1.1 MG/DL 0.5 MG/DL Sodium Level 134 MEQ/L 136 MEQ/L Potassium Level 3.4 MEQ/L 3.2 MEQ/L Chloride Level 98 MEQ/L 102 MEQ/L Carbon Dioxide Level 22.4 MEQ/L 25.9 MEQ/L Anion Gap 14 MEQ/L 8 MEQ/L Estimat Glomerular Filtration Rate 85 ML/MIN 90 ML/MIN Lactic Acid Level 1.7 mmol/L Ammonia 11 MCMOL/L Total Creatine Kinase 113 U/L Creatine Kinase MB 1.6 NG/ML Troponin I LESS THAN 0.02 NG/ML Lipase 1245 U/L 3382 U/L Amylase Level 128 U/L Vitamin B12 Level 727 PG/ML MDM Medical Decision Making Medical Screen Exam Complete: Yes Emergency Medical Condition: Yes Differential Diagnosis reaction to the chemo immunotherapy vs LFT worsening metastatic disease vs ammonia encephalopathy Narrative Course Lipase is elevated and after 1 liter NS I repeated lipse and CHEM I ORDER CT ABDO AND NECK FOR PAIN IN NECK , PRIOR CT SHOWED A MASS AT RIGHT SUBCLAVIAN AREA , CT ABDO PANCREATIC MASS IN HEAD OF PANCREAS WHICH IS NEW SINCE LAST CT I called DR LOPEZ who is COVERING FOR [place] and inform DR LOPEZ ONCO admit for onco consult and pain management of abdo and neck pain Diagnosis Primary Impression: History of fracture of toe Additional Impression: Pancreatic mass Scripts Apixaban (Eliquis) 5 Mg Tab 5 MG PO DIRECTED for Blood Clot Prevention for 30 Days, TAB 0 Refills 10 mg twice daily for 7 days followed by 5 mg twice daily. Prov: Andrzej Castañeda MD 03/05/18 Prednisone (Prednisone) 5 Mg Tab 5 MG PO DAILY for steroid for 7 Days, #7 TAB 0 Refills Prov: Andrzej Castañeda MD 03/05/18 Oxycodone (Oxycodone) 10 Mg Tab 10 MG PO Q4H Y for pain, #12 TAB 0 Refills Prov: Andrzej Castañeda MD 03/05/18 Buck Roman MD Mar 03, 2018 20:35
[2018-03-03 20:59] LABS: AUTOMATED NEUTROPHIL # 8.3 TH/MM3 (1.8-7.7); BASOPHIL % 0.3 % (0.0-2.0); EOSINOPHIL # 0.1 TH/MM3 (0-0.4); EOSINOPHIL % 0.5 % (0.0-4.0); HEMATOCRIT 43.2 % (39.0-51.0); HEMOGLOBIN 15.6 GM/DL (13.0-17.0); LYMPH % 8.3 % (9.0-44.0); LYMPHOCYTE # 0.8 TH/MM3 (1.0-4.8); MEAN CELL VOLUME 87.6 FL (80.0-100.0); MEAN CORPUSCULAR HEMOGLOBIN 31.6 PG (27.0-34.0); MONO % 7.6 % (0.0-8.0); MONOCYTE # 0.8 TH/MM3 (0-0.9); NEUT % 83.3 % (16.0-70.0); PLATELET COUNT 158 TH/MM3 (150-450); RED BLOOD COUNT 4.93 MIL/MM3 (4.50-5.90); RED CELL DISTRIBUTION WIDTH 15.1 % (11.6-17.2)
[2018-03-03] MEDS ORDERED: ONDANSETRON HCL 4 MG/2 ML VIAL IV PUSH ONE (21:00)
[2018-03-03] MEDS ORDERED: MORPHINE SULFATE 4 MG/ML INJ IV PUSH ONE (21:00)
[2018-03-03 21:13] LABS: ALBUMIN 3.9 GM/DL (3.4-5.0); AST (GOT) 72 U/L (15-37); BICARBONATE 22.4 MEQ/L (21.0-32.0); BLOOD UREA NITROGEN 12 MG/DL (7-18); CALCIUM 9.4 MG/DL (8.5-10.1); CHLORIDE 98 MEQ/L (98-107); CREATININE 0.92 MG/DL (0.60-1.30); GLOMERULAR FILTRATION RATE 85 ML/MIN (>89); GLUCOSE,RANDOM 73 MG/DL (74-106); SODIUM (NA) 134 MEQ/L (136-145)
[2018-03-03 21:14] LABS: ALT (GPT) 75 U/L (12-78)
[2018-03-03 21:31] LABS: ALKALINE PHOSPHATASE 140 U/L (45-117); TOTAL BILIRUBIN ADULT 1.1 MG/DL (0.2-1.0); TROPONIN I LESS THAN 0.02 NG/ML (0.02-0.05)
[2018-03-03] MEDS ORDERED: HYDROmorphone HCL PF 1 MG/ML VIAL IV PUSH ONE (21:45)
[2018-03-03] MEDS ORDERED: HYDROmorphone HCL PF 2 MG/ML VIAL ONE (21:54)
[2018-03-03] MEDS: DEXT 5%-NACL 0.9% 1000 ML INJ 1,000 ML IV SCH (21:59)
[2018-03-03 22:19] LABS: OVALOCYTES 1+ (NORMAL)
[2018-03-04] VITALS (8 sets, daily range): BP systolic 101–122; BP diastolic 66–84; PULSE 87–111; RESP 13–20; TEMP 96.4–98.2; O2SAT 94–98
[2018-03-04 01:08] LABS: ALBUMIN 3.1 GM/DL (3.4-5.0); ALKALINE PHOSPHATASE 108 U/L (45-117); ALT (GPT) 62 U/L (12-78); AST (GOT) 58 U/L (15-37); BICARBONATE 25.9 MEQ/L (21.0-32.0); BLOOD UREA NITROGEN 12 MG/DL (7-18); CALCIUM 8.1 MG/DL (8.5-10.1); CHLORIDE 102 MEQ/L (98-107); CREATININE 0.87 MG/DL (0.60-1.30); GLOMERULAR FILTRATION RATE 90 ML/MIN (>89); GLUCOSE,RANDOM 164 MG/DL (74-106); SODIUM (NA) 136 MEQ/L (136-145); TOTAL BILIRUBIN ADULT 0.5 MG/DL (0.2-1.0); TOTAL PROTEIN 6.4 GM/DL (6.4-8.2)
[2018-03-04] MEDS ORDERED: SODIUM CHLOR 0.9% 1000 ML INJ 1,000 ML IV ONE (02:00)
[2018-03-04] MEDS ORDERED: HYDROmorphone HCL PF 1 MG/ML VIAL IV PUSH ONE (03:15)
[2018-03-04] MEDS ORDERED: HYDROmorphone HCL PF 2 MG/ML VIAL ONE ×2 (03:17→08:29)
[2018-03-04] MEDS ORDERED: IOHEXOL 350 MG/ML 10 ML VIAL (for RAD DIAG) IVCONTRAST ONE (03:53)
--- NOTE | 2018-03-04 04:22 | RADRPT ---
EXAM DATE/TIME: 03/04/2018 03:28 [facility] COMPARISON: CT ABDOMEN & PELVIS W CONTRAST, February 10, 2018, 21:14. INDICATIONS : Abdominal pain. Evaluate pancreatitis. IV CONTRAST: 70 cc Omnipaque 350 (iohexol) IV ORAL CONTRAST: No oral contrast ingested. RADIATION DOSE: 6.64 CTDIvol (mGy) MEDICAL HISTORY : Hypertension. Metastatic disease. SURGICAL HISTORY : None. ENCOUNTER: Initial ACUITY: 1 day PAIN SCALE: 5/10 LOCATION: abdomen TECHNIQUE: Volumetric scanning of the abdomen and pelvis was performed. Using automated exposure control and ad justment of the mA and/or kV according to patient size, radiation dose was kept as low as reasonably achievable to obtain optimal diagnostic quality images. DICOM format image data is available electro nically for review and comparison. FINDINGS: LOWER LUNGS: Small right pleural effusion is new. Lung bases are clear. Increase in size of anterior pericardial l ymph node measuring 3.4 x 2.2 cm compared to 2.7 x 1.3 cm on the prior study of 02/10/2018. LIVER: Multiple ill-defined solid mass is again identified in the liver. There's been interval increase in s ize when compared prior study. The index mass in the anterior left lobe now measures 5.2 cm compared to 4.1 cm on the prior study. More inferior in the left lobe mass measures 5.4 cm compared to 4.4 cm on prior study. Numerous new smaller masses are also now seen. SPLEEN: Normal size without lesion. PANCREAS: A 2.3 cm ill-defined solid mass is now seen in the head of the pancreas. KIDNEYS: Normal in size and shape. There is no mass, stone or hydronephrosis. ADRENAL GLANDS: Within normal limits. VASCULAR: Diffuse atherosclerotic disease/calcification of the aorta and iliac arteries. Aortic diameter is wit hin normal limits. BOWEL/MESENTERY: No evidence of bowel dilatation. No free air or free fluid. Appendix not identified. ABDOMINAL WALL: Within normal limits. RETROPERITONEUM: Multiple mildly prominent retroperitoneal lymph nodes unchanged. BLADDER: No wall thickening or mass. REPRODUCTIVE: Within normal limits. INGUINAL: There is no lymphadenopathy or hernia. MUSCULOSKELETAL: Diffuse sclerotic bony metastasis again seen. No significant interval change. CONCLUSION: 1. Evidence of interval progression of metastatic disease in the abdomen with increase in size of pre viously identified liver masses and increase in number of liver masses. Solid mass is now seen in the head of the pancreas also likely representing metastatic disease. 2. Diffuse sclerotic bony metastasis. 3. New small right pleural effusion. Mehrdad Blevins MD on March 04, 2018 at 4:13 Board Certified Radiologist. This report was verified electronically.
--- NOTE | 2018-03-04 04:30 | RADRPT ---
EXAM DATE/TIME: 03/04/2018 03:39 [facility] COMPARISON: CT SOFT TISSUE NECK W CONTRAST, February 13, 2018, 14:47. INDICATIONS : Pain. Compare mass to recent study. IV CONTRAST: 30 cc Omnipaque 350 (iohexol) IV RADIATION DOSE: 17.05 CTDIvol (mGy) MEDICAL HISTORY : Hypertension. Metastatic disease. SURGICAL HISTORY : None. ENCOUNTER: Initial ACUITY: 1 day PAIN SCALE: 5/10 LOCATION: Right neck TECHNIQUE: Volumetric scanning of the neck was performed. Using automated exposure control and adjustment of th e mA and/or kV according to patient size, radiation dose was kept as low as reasonably achievable to obtain optimal diagnostic quality images. DICOM format image data is available electronically for r eview and comparison. FINDINGS: Lobulated solid mass in the right side of the neck is again seen now measuring 6.1 x 4.6 cm compared to 4.8 x 3.5 cm on the prior studies 02/13/2018. Left-sided supraclavicular neck mass now measures 2.9 x 2.2 cm compared to 1.8 x 1.9 cm on the prior study. Anterior pretracheal soft tissue mass is parti ally visualized and also likely increased in size. It is confluent with a right-sided neck mass. Nasopharynx and oropharynx within normal limits. Salivary glands are symmetric and within normal limi ts. Hypopharynx and larynx within normal limits. CONCLUSION: Increase in size in solid bilateral neck masses indicating metastatic malignancy. Mehrdad Blevins MD on March 04, 2018 at 4:23 Board Certified Radiologist. This report was verified electronically.
[2018-03-04] MEDS: DEXT 5%-NACL 0.9% 1000 ML INJ 1,000 ML IV SCH (05:12)
[2018-03-04] MEDS ORDERED: SODIUM CHLORIDE 0.9% FLUSH 10 ML FLUSH IV FLUSH PRN (05:30)
[2018-03-04] MEDS ORDERED: BISACODYL 10 MG SUPP RECTAL PRN (05:30)
[2018-03-04] MEDS ORDERED: ACETAMINOPHEN 325 MG TAB PO PRN (05:30)
[2018-03-04] MEDS ORDERED: LACTULOSE SYRUP 20 GM/30 ML CUP PO PRN (05:30)
[2018-03-04] MEDS ORDERED: MAGNESIUM HYDROXIDE SUSP 30 ML CUP PO PRN (05:30)
[2018-03-04] MEDS ORDERED: SENNOSIDES 8.6 MG TAB PO PRN (05:30)
[2018-03-04] MEDS: SODIUM CHLOR 0.9% 1000 ML INJ 1,000 ML IV SCH ×3 (05:57→23:56)
[2018-03-04] MEDS: PANTOPRAZOLE SODIUM 40 MG VIAL IV PUSH SCH ×2 (06:50→18:00)
[2018-03-04] MEDS: HYDROmorphone HCL PF 2 MG/ML VIAL IV PUSH PRN ×2 (08:34→10:41)
[2018-03-04] MEDS: SODIUM CHLORIDE 0.9% FLUSH 10 ML FLUSH IV FLUSH SCH ×2 (08:36→21:10)
[2018-03-04] MEDS: DOCUSATE SODIUM 50 MG/SENNA 8.6 MG TAB PO SCH ×2 (08:36→21:09)
--- NOTE | 2018-03-04 13:05 | HHI.HP ---
[facility] Primary Care Physician Sean Keyes DO Admission Diagnosis pancreatic mass and elevated lipse lung brain liver CA Diagnoses: (1) lung cancer with metastasis Diagnosis: Principal Chief Complaint: ' I was told to come to the hospital'. Travel History International Travel<30 Days: No Contact w/Intl Traveler <30 Da: No Traveled to Known Affected Are: No History of Present Illness patient is a 57 y/o male with history of lung cancer with metastasis to brain and liver, CAD, hypertension, lupus,hypothyroidism ,dyslipidemia who was advised to come to the hospital by her oncologist. he's being followed up by Teodoro. he says that he had some blood work last week which showed elevated liver enzymes for which he was told to come to the hospital. he's complaining of pain to the right neck which has been going on for a couple of months. he denies any headache, abdominal pain, nausea or vomiting. Review of Systems Constitutional: DENIES: Fever, Weight loss, Chills, Night Sweats Eyes: DENIES: Blurred vision, Diplopia, Vision loss, Double Vision Ears, nose, mouth, throat: DENIES: Tinnitus, Vertigo, Throat pain, Epistaxis Respiratory: DENIES: Apneas, Cough, Snoring, Wheezing, Hemoptysis, Sputum production, Shortness of breath Cardiovascular: DENIES: Chest pain, Palpitations, Syncope, Dyspnea on Exertion , PND, Lower Extremity Edema, Orthopnea, Claudication Gastrointestinal: DENIES: Abdominal pain, Black stools, Bloody stools, Constipation, Diarrhea, Nausea, Vomiting, Difficulty Swallowing, Anorexia Genitourinary: DENIES: Urinary frequency, Urgency, Hematuria, Dysuria Musculoskeletal: COMPLAINS OF: Muscle aches (neck), DENIES: Joint pain, Stiffness, Joint Swelling Integumentary: DENIES: Rash Neurologic: DENIES: Abnormal gait, Headache, Localized weakness, Paresthesias, Seizures, Speech Problems, Tremor, Poor Balance Psychiatric: DENIES: Anxiety, Confusion, Mood changes, Depression, Hallucinations, Agitation, Suicidal Ideation, Homicidal Ideation, Delusions Past Family Social History Past Medical History lung cancer/ CAD/ hypertension/ hypothyroidism/ dyslipidemia. Past Surgical History surgery on the leg. Reported Medications Meloxicam 15 Mg Tab 15 Mg PO DAILY Atorvastatin (Atorvastatin Calcium) 80 Mg Tab 80 Mg PO HS Hydroxychloroquine (Hydroxychloroquine Sulfate) 200 Mg Tab 200 Mg PO DAILY Takw with food Hydrochlorothiazide 12.5 Mg Cap 12.5 Mg PO DAILY Allopurinol 100 Mg Tab 100 Mg PO DAILY Levothyroxine (Levothyroxine Sodium) 100 Mcg Tab 100 Mcg PO DAILY Metoprolol Tartrate 50 Mg Tab 50 Mg PO BID Aspirin EC (Aspirin) 81 Mg Tabdr 81 Mg PO DAILY Allergies: Coded Allergies: No Known Allergies (Verified Allergy, Unknown, 03/04/18) Active Ordered Medications Inpatient Medications Acetaminophen (Tylenol) 650 mg Q6H PRN PO FEVER; Start 03/04/18 at 05:30 Bisacodyl (Dulcolax Supp) 10 mg DAILY PRN RECTAL SEVERE CONSITIPATION; Start at 05:30 Dextrose/Sodium Chloride 1,000 ml @ 150 mls/hr Q6H40M IV Last administered on 03/04/18at 05:12; Start 03/03/18 at 21:45; Stop 03/04/18 at 05:52; Status DC Hydromorphone HCl (Dilaudid Pf Inj) 1 mg Q3H PRN IV PUSH Pain 6-10 Last administered on 03/04/18at 10:41; Start 03/04/18 at 06:00 Lactulose (Lactulose Liq) 30 ml DAILY PRN PO SEVERE CONSITIPATION; Start at 05:30 Magnesium Hydroxide (Milk Of Magnesia Liq) 30 ml Q12H PRN PO Mild constipation ; Start 03/04/18 at 05:30 Morphine Sulfate (Morphine Inj) 4 mg ONCE ONCE IV PUSH Last administered on 03/03/18at 20:51; Start 03/03/18 at 21:00; Stop 03/03/18 at 21:01; Status DC Ondansetron HCl (Zofran Inj) 4 mg Q6H PRN IVP NAUSEA OR VOMITING; Start at 05:30 Oxycodone HCl (Roxicodone) 5 mg Q4H PRN PO PAIN SCALE 3 TO 5; Start 03/04/18 at 05:30 Pantoprazole Sodium (Protonix Inj) 40 mg Q12H IV PUSH Last administered on at 06:50; Start 03/04/18 at 06:00 Senna/Docusate Sodium (Melany-Colace) 1 tab BID PO ; Start 03/04/18 at 09:00 Sennosides (Senokot) 17.2 mg Q12H PRN PO Moderate constipation; Start 03/04/18 at 05:30 Sodium Chloride (NS Flush) 2 ml BID IV FLUSH Last administered on 03/04/18at 08: 36; Start 03/04/18 at 09:00 Social History quit smoking. doesn't drink. Physical Exam Vital Signs Vital Signs Date Time Temp Pulse Resp B/P (MAP) Pulse Ox O2 Delivery O2 Flow Rate FiO2 03/04/18 12:31 96.4 111 18 113/75 (88) 95 03/04/18 09:36 03/04/18 09:30 96.9 107 20 122/84 (97) 97 03/04/18 09:10 13 03/04/18 09:00 90 16 115/75 (88) 96 Room Air 03/04/18 08:38 97.8 87 13 109/76 (87) 96 Room Air 03/04/18 06:11 20 03/04/18 04:00 98.2 98 18 112/66 (81) 98 Room Air 03/04/18 00:09 98.0 106 18 101/68 (79) 98 Room Air 03/03/18 22:30 20 03/03/18 21:09 20 03/03/18 19:54 97.8 110 18 102/71 (81) 98 Room Air Physical Exam GENERAL: This is a well-nourished, well-developed patient, in no apparent distress. SKIN: No rashes, ecchymoses or lesions. Cool and dry. HEAD: Atraumatic. Normocephalic. No temporal or scalp tenderness. EYES: Pupils equal round and reactive. Extraocular motions intact. No scleral icterus. No injection or drainage. ENT: Nose without bleeding, purulent drainage or septal hematoma. Throat without erythema, tonsillar hypertrophy or exudate. Uvula midline. Airway patent. NECK: Trachea midline. No JVD or lymphadenopathy. Supple, nontender, no meningeal signs. CARDIOVASCULAR: Regular rate and rhythm without murmurs, gallops, or rubs. RESPIRATORY: Clear to auscultation. Breath sounds equal bilaterally. No wheezes , rales, or rhonchi. GASTROINTESTINAL: Abdomen soft, non-tender, nondistended. No hepato-splenomegaly , or palpable masses. No guarding. MUSCULOSKELETAL: Extremities without clubbing, cyanosis, or edema. No joint tenderness, effusion, or edema noted. No calf tenderness. Negative Homans sign bilaterally. NEUROLOGICAL: Awake and alert. Cranial nerves II through XII intact. Motor and sensory grossly within normal limits. Five out of 5 muscle strength in all muscle groups. Normal speech. Laboratory Laboratory Tests Test 03/03/18 20:45 03/04/18 00:30 White Blood Count 10.0 Red Blood Count 4.93 Hemoglobin 15.6 Hematocrit 43.2 Mean Corpuscular Volume 87.6 Mean Corpuscular Hemoglobin 31.6 Mean Corpuscular Hemoglobin Concent 36.0 Red Cell Distribution Width 15.1 Platelet Count 158 Mean Platelet Volume 7.0 Neutrophils (%) (Auto) 83.3 Lymphocytes (%) (Auto) 8.3 Monocytes (%) (Auto) 7.6 Eosinophils (%) (Auto) 0.5 Basophils (%) (Auto) 0.3 Neutrophils # (Auto) 8.3 Lymphocytes # (Auto) 0.8 Monocytes # (Auto) 0.8 Eosinophils # (Auto) 0.1 Basophils # (Auto) 0.0 CBC Comment AUTO DIFF Differential Comment AUTO DIFF CONFIRMED Platelet Estimate LOW Platelet Morphology Comment NORMAL Ovalocytes 1+ Blood Urea Nitrogen 12 12 Creatinine 0.92 0.87 Random Glucose 73 164 Total Protein 8.0 6.4 Albumin 3.9 3.1 Calcium Level 9.4 8.1 Alkaline Phosphatase 140 108 Aspartate Amino Transf (AST/SGOT) 72 58 Alanine Aminotransferase (ALT/SGPT) 75 62 Total Bilirubin 1.1 0.5 Sodium Level 134 136 Potassium Level 3.4 3.2 Chloride Level 98 102 Carbon Dioxide Level 22.4 25.9 Anion Gap 14 8 Estimat Glomerular Filtration Rate 85 90 Lactic Acid Level 1.7 Ammonia 11 Total Creatine Kinase 113 Creatine Kinase MB 1.6 Troponin I LESS THAN 0.02 Lipase 1245 3382 Amylase Level 128 Result Diagram: 03/03/18204403/04/18 0030 Imaging Last Impressions Neck CT 03/04/18 0000 Signed Impressions: Service Date/Time: Sunday, March 04, 2018 03:39 - CONCLUSION: Increase in size in solid bilateral neck masses indicating metastatic malignancy. Mehrdad Blevins MD Abdomen/Pelvis CT 03/04/18 0000 Signed Impressions: Service Date/Time: Sunday, March 04, 2018 03:28 - CONCLUSION: 1. Evidence of interval progression of metastatic disease in the abdomen with increase in size of previously identified liver masses and increase in number of liver masses. Solid mass is now seen in the head of the pancreas also likely representing metastatic disease. 2. Diffuse sclerotic bony metastasis. 3. New small right pleural effusion. Mehrdad Blevins MD Caprini VTE Risk Assessment Caprini VTE Risk Assessment: Mod/High Risk (score >= 2) Caprini Risk Assessment Model Point Value = 1 Point Value = 2 Point Value = 3 Point Value = 5 Age 41-60 Minor surgery BMI > 25 kg/m2 Swollen legs Varicose veins or History of unexplained or recurrent spontaneous Oral contraceptives or hormone replacement Sepsis (< 1 month) Serious lung disease, including pneumonia (< 1 month) Abnormal pulmonary function Acute myocardial infarction Congestive heart failure (< 1 month) History of inflammatory bowel disease Medical patient at bed rest Age 61-74 Arthroscopic surgery Major open surgery (> 45 min) Laparoscopic surgery (> 45 min) Malignancy Confined to bed (> 72 hours) Immobilizing plaster cast Central venous access Age >= 75 History of VTE Family history of VTE Factor V Leiden Prothrombin [id number] Lupus anticoagulant Anticardiolipin antibodies Elevated serum homocysteine Heparin-induced thrombocytopenia Other congenital or acquired thrombophilia Stroke (< 1 month) Elective arthroplasty Hip, pelvis, or leg fracture Acute spinal cord injury (< 1 month) Prophylaxis Regimen Total Risk Factor Score Risk Level Prophylaxis Regimen 0-1 Low Early ambulation 2 Moderate Order ONE of the following: *Sequential Compression Device (SCD) *Heparin 5000 units SQ BID 3-4 Higher Order ONE of the following medications: *Heparin 5000 units SQ TID *Enoxaparin/Lovenox 40 mg SQ daily (WT < 150 kg, CrCl > 30 mL/min) *Enoxaparin/Lovenox 30 mg SQ daily (WT < 150 kg, CrCl > 10-29 mL/min) *Enoxaparin/Lovenox 30 mg SQ BID (WT < 150 kg, CrCl > 30 mL/min) AND/OR *Sequential Compression Device (SCD) 5 or more Highest Order ONE of the following medications: *Heparin 5000 units SQ TID (Preferred with Epidurals) *Enoxaparin/Lovenox 40 mg SQ daily (WT < 150 kg, CrCl > 30 mL/min) *Enoxaparin/Lovenox 30 mg SQ daily (WT < 150 kg, CrCl > 10-29 mL/min) *Enoxaparin/Lovenox 30 mg SQ BID (WT < 150 kg, CrCl > 30 mL/min) AND *Sequential Compression Device (SCD) Assessment and Plan Assessment and Plan A/P - small cell lung cancer with metastasis to the brain ( completed the whole brain radiation) and liver- now on immunotherapy- being followed up by . CT of the abdomen with evidence of interval progression of metastatic disease in the abdomen with increase in size of previously identified liver masses and increase in number of liver masses. with a solid mass is now seen in the head of the pancreas also likely representing metastatic disease, diffuse sclerotic bony metastasis and new small right pleural effusion. continue with pain control- consulted Oncology. - neck pain with bilateral neck masses on the CT neck; continue pain control and oncology evaluation as noted above. - swelling of the right arm; will check venous doppler -CAD- s/p stent placement; resume BB- hold statin due to elevated LFT's- -hypertension/ hypothyroidism/lupus; resume home meds -hypokalemia; will replace and monitor. -DVT prophylaxis with SCD's Discussed Condition With the patient and RN. Physician Certification 2 Midnight Certification Type: Admission for Inpatient Services Order for Inpatient Services The services are ordered in accordance with Medicare regulations or non- Medicare payer requirements, as applicable. In the case of services not specified as inpatient-only, they are appropriately provided as inpatient services in accordance with the 2-midnight benchmark. Estimated LOS (days): 2 days is the estimated time the patient will need to remain in the hospital, assuming treatment plan goals are met and no additional complications. Post-Hospital Plan: Home Andrzej Castañeda MD Mar 04, 2018 13:05
[2018-03-04] MEDS ORDERED: POTASSIUM CHLORIDE 20 MEQ CONTROLLED RELEASE TAB PO ONE (14:00)
--- NOTE | 2018-03-04 15:10 | RADRPT ---
EXAM DATE/TIME: 03/04/2018 13:57 [facility] COMPARISON: CT SOFT TISSUE NECK W CONTRAST, March 04, 2018, 3:39. INDICATIONS : Right arm swelling. MEDICAL HISTORY : Carcinoma, lung. Metastatic, liver. Metastatic, brain.Lupus. SURGICAL HISTORY : None. ENCOUNTER: Initial ACUITY: 1 day PAIN SCORE: 0/10 LOCATION: Right arm. FINDINGS: The right subclavian vein is noncompressible and contains intraluminal thrombus. Adjacent to the vein there is a large mass measuring 4.5 x 5.1 cm in size. The mass is effacing the subclavian vein. The jugular, axillary, brachial, basilic and cephalic veins are unremarkable. CONCLUSION: Right subclavian DVT 5 cm supraclavicular mass adjacent to and compressing the subclavian vein.. Edi Haley MD on March 04, 2018 at 15:02 Board Certified Radiologist. This report was verified electronically.
[2018-03-04] MEDS ORDERED: HYDROmorphone HCL PF 2 MG/ML VIAL IV ONE (15:30)
[2018-03-04] MEDS: predniSONE 5 MG TAB PO SCH (15:42)
--- NOTE | 2018-03-04 17:37 | MB ---
cc: Danae Abreu MD, Ruby Anne E MD DATE: 03/04/2018 REFERRING PHYSICIAN: Dr. Buck Roman. CHIEF COMPLAINT: Dr. Roman requests a consultation for Mr. Rnee regarding elevated lipase in a patient on double immunotherapy for small cell lung cancer. HISTORY OF PRESENT ILLNESS: Mr. Rene is a 57-year-old man with coronary artery disease and systemic lupus. He was diagnosed with extensive stage small cell lung cancer in 06/2017. He developed DRESSER TENDER metastatic disease and was treated with whole brain radiation. He was then switched to dual immunotherapy with nivolumab and ipilimumab. He has had a history of pancreatitis. He was seen in the emergency room for cancer-related pain on 02/28/2018. Laboratory findings there showed a mild thrombocytopenia, elevated white blood cell count. On followup with Dr. Pruett, laboratory evaluation shows a lipase increased at 1245. He was advised to come in for evaluation. His total bilirubin was 1.1. AST is elevated at 72, alkaline phosphatase is 140. During the emergency room visit, his lipase and amylase were repeated. His lipase was found to be 3382. His amylase was 128. His albumin is decreased. Liver function interestingly has improved. He denies any abdominal pain at present. He came in because of neck pain. He had ultrasound of the right upper extremity that shows a subclavian DVT and 5 cm supraclavicular mass adjacent to and compressing the subclavian vein. Neck CT shows an increased size in the solid bilateral neck masses. CT scan of the abdomen shows interval progression of metastatic disease in the abdomen, the liver, and as well as the solid mass in the head of the pancreas. I discussed the above findings with Dr. Roman. Mr. Rene was admitted. We discussed the question of pseudo progression since he feels rather well from the abdominal symptoms. His right neck and right arm; however, are a different symptom altogether. He denies any fevers, chills or night sweats. He has a decrease in appetite since nothing tastes good. He denies any nausea or vomiting. He has no diarrhea. He has no rash. He does have a history of lupus. Apparently, his presentation is that of the skin. The rest of his review of systems is negative. PAST MEDICAL HISTORY: Arthritis, DRESSER TENDER metastatic disease, COPD, coronary artery disease, hypertension, systemic lupus, metastatic or extensive stage small cell lung cancer, hypothyroidism. PAST SURGICAL HISTORY: Knee tumor removed, coronary stent placement, colonoscopy, angioplasty. ALLERGIES: NO KNOWN DRUG ALLERGIES. FAMILY HISTORY: No significant family history of cancer. SOCIAL HISTORY: He is , lives with his . He moved to the [facility] recently to be near their children. He denies any alcohol or illicit drug use. He is a smoker. MEDICATIONS: 1. Allopurinol. 2. Microzide. 3. Plaquenil. 4. Synthroid. 5. Lopressor. 6. Dilaudid. 7. Lactulose. 8. Dulcolax. 9. Senokot. 10. Zofran p.r.n. PHYSICAL EXAMINATION: VITAL SIGNS: Temperature 96.4, heart rate 111, respiratory rate 18, blood pressure 113/75, saturation 95%. GENERAL: Mr. Rene is a 57-year-old man who looks his stated age. HEENT: His pupils are round, reactive to light and accommodation. Oropharynx is clear. NECK: Supple. There is cervical adenopathy, mass noted in the right neck. There is tenderness in the right base of neck. LUNGS: Clear to auscultation. CARDIOVASCULAR: Reveals a normal rate and rhythm. ABDOMEN: Benign, nontender. LOWER EXTREMITIES: No edema. NEUROLOGIC: Nonfocal. LABORATORY DATA: Potassium of 3.2. Amylase and lipase as described above. CBC is normal. ASSESSMENT AND PLAN: Mr. Rene is a 57-year-old man with extensive stage small cell lung cancer, receiving double immunotherapy with ipilimumab and nivolumab. He comes in with elevated amylase and lipase, although asymptomatic. His lipase appears to be trending up. I discussed with Mr. eRne and his the concern for pseudo progression. I will start him on a small dose of prednisone at 5 mg to help regain some of the immunotherapy effect. He is at increased risk given his history of lupus. We discussed anticoagulant therapy for upper extremity deep vein thromboses precipitated by the enlarging mass in the neck. I defer to Dr. Giles for additional therapy or continued treatment for the possibility of pseudo progression in about 10% of the cases. His pain medication is optimized. We will schedule his Dilaudid 1 mg every 3 hours. Oxycodone is being used as breakthrough. I anticipate that he should feel better with starting low molecular weight heparin for his upper extremity deep vein thromboses. Mr. Rene's questions were answered to his satisfaction. Depending on his clinical response and decrease of symptoms, I anticipate he could go home the next day and follow up with Dr. Giles on an outpatient basis. MD JONG Allen//marilu , 03:27 PM , 04:40 PM
[2018-03-04] MEDS: HYDROmorphone HCL PF 2 MG/ML VIAL IV PUSH SCH ×3 (18:22→23:56)
[2018-03-04] MEDS: ENOXAPARIN SODIUM 60 MG/0.6 ML SYRINGE SQ SCH (18:26)
[2018-03-04] MEDS: METOPROLOL TARTRATE 50 MG TAB PO SCH (21:09)
[2018-03-05] VITALS: BP 117/71; PULSE 81; RESP 16; TEMP 97.9; O2SAT 96
[2018-03-05] MEDS: HYDROmorphone HCL PF 2 MG/ML VIAL IV PUSH SCH ×5 (02:43→15:07)
[2018-03-05 04:57] LABS: AUTOMATED NEUTROPHIL # 6.7 TH/MM3 (1.8-7.7); BASOPHIL % 0.3 % (0.0-2.0); EOSINOPHIL % 0.5 % (0.0-4.0); HEMATOCRIT 36.9 % (39.0-51.0); MEAN CELL VOLUME 88.3 FL (80.0-100.0); MEAN CORPUSCULAR HGB CONC 35.2 % (32.0-36.0); MEAN PLATELET VOLUME 6.6 FL (7.0-11.0); MONO % 10.6 % (0.0-8.0); MONOCYTE # 0.9 TH/MM3 (0-0.9); NEUT % 76.6 % (16.0-70.0); PLATELET COUNT 142 TH/MM3 (150-450); RED BLOOD COUNT 4.18 MIL/MM3 (4.50-5.90); RED CELL DISTRIBUTION WIDTH 14.7 % (11.6-17.2); WHITE BLOOD COUNT 8.7 TH/MM3 (4.0-11.0)
[2018-03-05 05:07] LABS: INTERNATIONAL NORMALIZED RATIO 1.1 RATIO; PROTHROMBIN TIME - PATIENT 11.4 SEC (9.8-11.6)
[2018-03-05 05:27] LABS: ALBUMIN 3.1 GM/DL (3.4-5.0); ALT (GPT) 63 U/L (12-78); AST (GOT) 67 U/L (15-37); BICARBONATE 23.9 MEQ/L (21.0-32.0); BLOOD UREA NITROGEN 9 MG/DL (7-18); CALCIUM 8.1 MG/DL (8.5-10.1); CHLORIDE 104 MEQ/L (98-107); CREATININE 0.69 MG/DL (0.60-1.30); GLOMERULAR FILTRATION RATE 118 ML/MIN (>89); GLUCOSE,RANDOM 74 MG/DL (74-106); SODIUM (NA) 136 MEQ/L (136-145)
[2018-03-05 05:28] LABS: ALKALINE PHOSPHATASE 107 U/L (45-117); TOTAL BILIRUBIN ADULT 0.8 MG/DL (0.2-1.0); TOTAL PROTEIN 6.5 GM/DL (6.4-8.2)
[2018-03-05] MEDS: PANTOPRAZOLE SODIUM 40 MG VIAL IV PUSH SCH ×2 (05:33→17:36)
[2018-03-05] MEDS: ENOXAPARIN SODIUM 60 MG/0.6 ML SYRINGE SQ SCH ×2 (05:34→17:37)
[2018-03-05] MEDS ORDERED: LEVOTHYROXINE SODIUM 100 MCG TAB PO SCH (06:00)
[2018-03-05] MEDS: SODIUM CHLORIDE 0.9% FLUSH 10 ML FLUSH IV FLUSH SCH (06:58)
[2018-03-05 08:00] VITALS: BP 124/78; PULSE 83; RESP 17; TEMP 97.6; O2SAT 97
[2018-03-05] MEDS: ONDANSETRON HCL 4 MG/2 ML VIAL IVP PRN ×2 (08:38→14:31)
[2018-03-05] MEDS ORDERED: HYDROCHLOROTHIAZIDE 12.5 MG CAP PO SCH (09:00)
[2018-03-05] MEDS ORDERED: HYDROXYCHLOROQUINE SULFATE 200 MG TAB PO SCH (09:00)
[2018-03-05] MEDS ORDERED: ALLOPURINOL 100 MG TAB PO SCH (09:00)
[2018-03-05] MEDS: DOCUSATE SODIUM 50 MG/SENNA 8.6 MG TAB PO SCH (10:19)
[2018-03-05] MEDS: METOPROLOL TARTRATE 50 MG TAB PO SCH (10:20)
[2018-03-05] MEDS: predniSONE 5 MG TAB PO SCH (10:20)
--- NOTE | 2018-03-05 11:24 | HHI.PR ---
Subjective Remarks in no acute distress. has some swelling of the left arm. otherwise no abdominal pain, nausea or vomiting. d/w the RN. Objective Vitals Vital Signs Date Time Temp Pulse Resp B/P (MAP) Pulse Ox O2 Delivery O2 Flow Rate FiO2 03/05/18 08:00 97.6 83 17 124/78 (93) 97 03/05/18 06:02 18 03/05/18 00:00 97.9 81 16 117/71 (86) 96 03/04/18 20:00 98.0 105 16 116/78 (91) 96 03/04/18 16:00 98.2 105 15 105/73 (84) 94 03/04/18 13:56 20 03/04/18 12:31 96.4 111 18 113/75 (88) 95 I/O 03/04/18 03/04/18 03/04/18 03/05/18 03/05/18 03/05/18 07:00 15:00 23:00 07:00 15:00 23:00 Intake Total 2000.00 ml 1000 ml Output Total 200 ml 200 ml Balance 2000.00 ml -200 ml -200 ml 1000 ml Intake IV Total 2000.00 ml 1000 ml Output Urine Total 200 ml 200 ml # Voids 1 Result Diagram: 03/05/18 0446 03/05/186 Imaging Last Impressions Upper Extremity Ultrasound 03/04/18 0000 Signed Impressions: Service Date/Time: Sunday, March 04, 2018 13:57 - CONCLUSION: Right subclavian DVT 5 cm supraclavicular mass adjacent to and compressing the subclavian vein.. Edi Haley MD Neck CT 03/04/18 0000 Signed Impressions: Service Date/Time: Sunday, March 04, 2018 03:39 - CONCLUSION: Increase in size in solid bilateral neck masses indicating metastatic malignancy. Mehrdad Blevins MD Abdomen/Pelvis CT 03/04/18 0000 Signed Impressions: Service Date/Time: Sunday, March 04, 2018 03:28 - CONCLUSION: 1. Evidence of interval progression of metastatic disease in the abdomen with increase in size of previously identified liver masses and increase in number of liver masses. Solid mass is now seen in the head of the pancreas also likely representing metastatic disease. 2. Diffuse sclerotic bony metastasis. 3. New small right pleural effusion. Mehrdad Blevins MD Objective Remarks GENERAL: This is a well-nourished, well-developed patient, in no apparent distress. CARDIOVASCULAR: Regular rate and regular rhythm without murmurs, gallops, or rubs. RESPIRATORY: Clear to auscultation. Breath sounds equal bilaterally. No wheezes , rales, or rhonchi. GASTROINTESTINAL: Abdomen soft, non-tender, nondistended. Normal, active bowel sounds MUSCULOSKELETAL: Extremities without clubbing, cyanosis, or edema. NEURO: Alert & Oriented x4 to person, place, time, situation. Moves all ext x4 Medications and IVs Inpatient Medications Acetaminophen (Tylenol) 650 mg Q6H PRN PO FEVER; Start 03/04/18 at 05:30 Allopurinol (Zyloprim) 100 mg DAILY PO Last administered on 03/05/18at 10:18; Start 03/05/18 at 09:00 Bisacodyl (Dulcolax Supp) 10 mg DAILY PRN RECTAL SEVERE CONSITIPATION; Start at 05:30 Dextrose/Sodium Chloride 1,000 ml @ 150 mls/hr Q6H40M IV Last administered on 03/04/18at 05:12; Start 03/03/18 at 21:45; Stop 03/04/18 at 05:52; Status DC Enoxaparin Sodium (Lovenox Inj) 60 mg Q12H SQ Last administered on 03/05/18at 05: 34; Start 03/04/18 at 18:00 Hydrochlorothiazide (Microzide) 12.5 mg DAILY PO Last administered on 03/05/18 10:18; Start 03/05/18 at 09:00 Hydromorphone HCl (Dilaudid Pf Inj) 1 mg ONCE ONCE IV Last administered on 03/04at 15:34; Start 03/04/18 at 15:30; Stop 03/04/18 at 15:31; Status DC Hydroxychloroquine Sulfate (Plaquenil) 200 mg DAILY PO Last administered on 03/05at 10:19; Start 03/05/18 at 09:00 Lactulose (Lactulose Liq) 30 ml DAILY PRN PO SEVERE CONSITIPATION; Start at 05:30 Levothyroxine Sodium (Synthroid) 100 mcg DAILY@0600 PO Last administered on 03/05 05:32; Start 03/05/18 at 06:00 Magnesium Hydroxide (Milk Of Magnesia Liq) 30 ml Q12H PRN PO Mild constipation ; Start 03/04/18 at 05:30 Metoprolol Tartrate (Lopressor) 50 mg BID PO Last administered on 03/05/18 10: 20; Start 03/04/18 at 21:00 Morphine Sulfate (Morphine Inj) 4 mg ONCE ONCE IV PUSH Last administered on 20:51; Start 03/03/18 at 21:00; Stop 03/03/18 at 21:01; Status DC Ondansetron HCl (Zofran Inj) 4 mg Q6H PRN IVP NAUSEA OR VOMITING Last administered on 03/05/18 08:38; Start 03/04/18 at 05:30 Oxycodone HCl (Roxicodone) 10 mg Q4H PRN PO PAIN 6-10 Last administered on 16:56; Start 03/04/18 at 14:00 Pantoprazole Sodium (Protonix Inj) 40 mg Q12H IV PUSH Last administered on 05:33; Start 03/04/18 at 06:00 Potassium Chloride (KCl) 40 meq ONCE ONCE PO Last administered on 03/04/18 15: 43; Start 03/04/18 at 14:00; Stop 03/04/18 at 14:01; Status DC Prednisone (Deltasone) 5 mg DAILY PO Last administered on 03/05/18 10:20; Start 03/04/18 at 15:30 Senna/Docusate Sodium (Melany-Colace) 1 tab BID PO Last administered on 03/05/18 10:19; Start 03/04/18 at 09:00 Sennosides (Senokot) 17.2 mg Q12H PRN PO Moderate constipation; Start 03/04/18 at 05:30 Sodium Chloride (NS Flush) 2 ml BID IV FLUSH Last administered on 03/04/18 21: 10; Start 03/04/18 at 09:00 A/P Problem List: (1) lung cancer with metastasis Assessment and Plan - small cell lung cancer with metastasis to the brain ( completed the whole brain radiation) and liver- now on immunotherapy- being followed up by . CT of the abdomen with evidence of interval progression of metastatic disease in the abdomen with increase in size of previously identified liver masses and increase in number of liver masses. with a solid mass is now seen in the head of the pancreas also likely representing metastatic disease, diffuse sclerotic bony metastasis and new small right pleural effusion. continue with pain control- Oncology consult appreciated; will discharge on prednisone with outpatient follow-up. - neck pain with bilateral neck masses on the CT neck; continue pain control and oncology evaluation as noted above. - DVT of the right arm; will switch to Eliquis per my d/w . swelling of the left arm; will check venous doppler. -elevated lipase; trending down- asymptomatic- -CAD- s/p stent placement; resume BB- hold statin due to elevated LFT's- d/w the patient and his ; will resume aspirin after d/w . -hypertension/ hypothyroidism/lupus; resumed home meds -hypokalemia; replaced. -DVT prophylaxis with SCD's Discharge Planning will likely dc home this afternoon- after venous doppeler is resulted. see med list. f/u; pcp and oncology. d/w the patient and RN. d/w . Andrzej Castañeda MD Mar 05, 2018 11:24
[2018-03-05] MEDS ORDERED: OXYC-395 PO (11:28)
[2018-03-05] MEDS ORDERED: APIX5TAB PO ×2 (11:28→11:31)
[2018-03-05] MEDS ORDERED: PRED5TAB PO ×2 (11:28→11:31)
[2018-03-05] MEDS: SODIUM CHLOR 0.9% 1000 ML INJ 1,000 ML IV SCH (11:30)
[2018-03-05 12:00] VITALS: BP 107/68; PULSE 68; RESP 16; TEMP 97.8; O2SAT 94
--- NOTE | 2018-03-05 13:05 | PD.ONC.PN ---
Subjective Subjective Remarks Afebrile Pt resting in chair at bedside in no obvious distress. He is anxious to go home. Waiting on US of his L arm as he noticed this am he was swollen Objective Data Date Time Temp Pulse Resp B/P (MAP) Pulse Ox O2 Delivery O2 Flow Rate FiO2 03/05/18 08:00 97.6 83 17 124/78 (93) 97 03/05/18 06:02 18 03/05/18 00:00 97.9 81 16 117/71 (86) 96 03/04/18 20:00 98.0 105 16 116/78 (91) 96 03/04/18 16:00 98.2 105 15 105/73 (84) 94 03/04/18 13:56 20 03/05/18 03/05/18 03/05/18 07:00 15:00 23:00 Intake Total 1000 ml Balance 1000 ml Result Diagram: 03/05/18 0446 03/05/18 0446 Laboratory Results Laboratory Tests Test 03/05/18 04:46 White Blood Count 8.7 TH/MM3 Red Blood Count 4.18 MIL/MM3 Hemoglobin 13.0 GM/DL Hematocrit 36.9 % Mean Corpuscular Volume 88.3 FL Mean Corpuscular Hemoglobin 31.0 PG Mean Corpuscular Hemoglobin Concent 35.2 % Red Cell Distribution Width 14.7 % Platelet Count 142 TH/MM3 Mean Platelet Volume 6.6 FL Neutrophils (%) (Auto) 76.6 % Lymphocytes (%) (Auto) 12.0 % Monocytes (%) (Auto) 10.6 % Eosinophils (%) (Auto) 0.5 % Basophils (%) (Auto) 0.3 % Neutrophils # (Auto) 6.7 TH/MM3 Lymphocytes # (Auto) 1.0 TH/MM3 Monocytes # (Auto) 0.9 TH/MM3 Eosinophils # (Auto) 0.0 TH/MM3 Basophils # (Auto) 0.0 TH/MM3 CBC Comment DIFF FINAL Differential Comment Prothrombin Time 11.4 SEC Prothromb Time International Ratio 1.1 RATIO Activated Partial Thromboplast Time 27.3 SEC Blood Urea Nitrogen 9 MG/DL Creatinine 0.69 MG/DL Random Glucose 74 MG/DL Total Protein 6.5 GM/DL Albumin 3.1 GM/DL Calcium Level 8.1 MG/DL Alkaline Phosphatase 107 U/L Aspartate Amino Transf (AST/SGOT) 67 U/L Alanine Aminotransferase (ALT/SGPT) 63 U/L Lactate Dehydrogenase 526 U/L Total Bilirubin 0.8 MG/DL Sodium Level 136 MEQ/L Potassium Level 4.4 MEQ/L Chloride Level 104 MEQ/L Carbon Dioxide Level 23.9 MEQ/L Anion Gap 8 MEQ/L Estimat Glomerular Filtration Rate 118 ML/MIN Amylase Level 69 U/L Lipase 1033 U/L Administered Medications Medications (Trade) Dose Ordered Sig/Mireya Route PRN Reason Start Time Stop Time Status Last Admin Dose Admin Sodium Chloride 1,000 ml @ 100 mls/hr Q10H IV 03/04/18 05:30 03/04/18 23:56 Sodium Chloride (NS Flush) 2 ml BID IV FLUSH 03/04/18 09:00 03/04/18 21:10 Ondansetron HCl (Zofran Inj) 4 mg Q6H PRN IVP NAUSEA OR VOMITING 03/04/18 05:30 03/05/18 08:38 Oxycodone HCl (Roxicodone) 5 mg Q4H PRN PO PAIN SCALE 3 TO 5 03/04/18 05:30 03/05/18 10:17 Senna/Docusate Sodium (Melany-Colace) 1 tab BID PO 03/04/18 09:00 03/05/18 10:19 Pantoprazole Sodium (Protonix Inj) 40 mg Q12H IV PUSH 03/04/18 06:00 03/05/18 05:33 Allopurinol (Zyloprim) 100 mg DAILY PO 03/05/18 09:00 03/05/18 10:18 Hydrochlorothiazide (Microzide) 12.5 mg DAILY PO 03/05/18 09:00 03/05/18 10:18 Levothyroxine Sodium (Synthroid) 100 mcg DAILY@0600 PO 03/05/18 06:00 03/05/18 05:32 Metoprolol Tartrate (Lopressor) 50 mg BID PO 03/04/18 21:00 03/05/18 10:20 Oxycodone HCl (Roxicodone) 10 mg Q4H PRN PO PAIN 6-10 03/04/18 14:00 03/04/18 16:56 Hydroxychloroquine Sulfate (Plaquenil) 200 mg DAILY PO 03/05/18 09:00 03/05/18 10:19 Hydromorphone HCl (Dilaudid Pf Inj) 1 mg Q3H IV PUSH 03/04/18 18:00 03/05/18 17:59 03/05/18 12:03 Prednisone (Deltasone) 5 mg DAILY PO 03/04/18 15:30 03/05/18 10:20 Enoxaparin Sodium (Lovenox Inj) 60 mg Q12H SQ 03/04/18 18:00 03/05/18 05:34 Objective Remarks GENERAL: Older male sitting up in chair at bedside no obvious distress SKIN: Warm and dry. HEAD: Normocephalic. EYES: No scleral icterus. No injection or drainage. NECK: Tenderness and fullness of the right neck CARDIOVASCULAR: Regular rate and rhythm without murmurs. RESPIRATORY: Diminished on the left GASTROINTESTINAL: Abdomen soft, non-tender, nondistended. EXTREMITIES: Bilateral upper extremity edema, more so on the right. MUSCULOSKELETAL: Adequate muscle tone. NEUROLOGICAL: No obvious focal deficit. Awake, alert, and oriented x3. Assessment/Plan Problem List: (1) Lung cancer ICD Codes: C34.90 - Malignant neoplasm of unspecified part of unspecified bronchus or lung Plan: --On nivolumab and ipilimumab outpatient Hx/Workup: Patient was diagnosed with extensive stage small cell lung cancer in June 2017. He developed CO[employer] RO[employer]END[employer] metastatic disease and was treated with whole brain radiation. At that time he was switched to dual immunotherapy with nivolumab and ipilimumab. He was admitted with findings of pancreatitis which he has had in the past. (2) DVT (deep venous thrombosis) ICD Codes: I82.409 - Acute embolism and thrombosis of unspecified deep veins of unspecified lower extremity Plan: --Patient found to have a right subclavian DVT --Currently on Lovenox --Transition to Eliquis once discharged Assessment 57-year-old male with history of extensive stage small cell lung cancer admitted with symptoms of pancreatitis found to have a DVT Plan 1. Clear for discharge from oncology standpoint 2. Patient will call on Tuesday to see Dr. Pruett in clinic later this week 3. If discharged, he was instructed to start the Eliquis this evening. Attending Statement The exam, history, and the medical decision-making described in the above note were completed with the assistance of the mid-level provider. I reviewed and agree with the findings presented. I attest that I had a [id number] encounter with the patient on the same day, and personally performed and documented my assessment and findings in the medical record. Discussed w/ Dr. Laureano, pending US LUE r/o BL UE DVT. Tolerating Lovenox well. Plan to transition to Eliquis as out pt. Responding to small dose steroid prednisone 5mg, cont x 5 days. Follow up with Dr. Pruett. Laurie Louie Mar 05, 2018 13:05 Danae Abreu MD Mar 05, 2018 13:41
[2018-03-05 16:00] VITALS: BP 104/68; PULSE 80; RESP 16; TEMP 97.7; O2SAT 97
--- NOTE | 2018-03-05 16:16 | RADRPT ---
EXAM DATE/TIME: 03/05/2018 15:37 [facility] COMPARISON: CT SOFT TISSUE NECK W CONTRAST, March 04, 2018, 3:39. INDICATIONS : Left arm swelling. MEDICAL HISTORY : Hypothyroidism. Deep venous thrombosis. Hypercholesterolemia. CO. Carcinoma, lung. Metastatic, liver. Metastatic, brain. Lupus. Coronary artery disease. Hypertension. Measles. SURGICAL HISTORY : Coronary artery stent. Left knee mass removal. Angioplasty. ENCOUNTER: Subsequent ACUITY: 1 day PAIN SCORE: 0/10 LOCATION: Left arm. FINDINGS: There is spontaneous flow documented in the brachial, basilic, cephalic, axillary, and subclavian vei ns. The vessels are compressible and augmentation response is documented. No filling defects are se en. The flow is phasic with respiration. Direction of flow in the jugular vein is caudal. As seen on recent CT, there is a solid left supraclavicular mass. By ultrasound and measures approxim ately 2.0 x 2.3 x 2.1 cm. CONCLUSION: No venous thrombosis of the left upper extremity. There is left supraclavicular lymphadenopathy again seen. Tuan Madrid MD on March 05, 2018 at 16:12 Board Certified Radiologist. This report was verified electronically.
== END 2018-03-05 18:21 | disposition home or self-care (01) | DRG 300 ==
LOC: NEPC 19:49 → NEDA 03-04 06:32 → NEDH 03-04 08:26 → NEDA 03-04 09:37 → N07A 03-04 16:45
PROVIDERS: ADMIT Internal Medicine; ATTEND Internal Medicine
DX: I82.B11 Acute embolism and thrombosis of right subclavian vein (principal); C79.31 Secondary malignant neoplasm of brain; C78.7 Secondary malignant neoplasm of liver and intrahepatic bile duct; M32.9 Systemic lupus erythematosus, unspecified; K86.89 Other specified diseases of pancreas; C34.90 Malignant neoplasm of unspecified part of unspecified bronchus or lung; R79.89 Other specified abnormal findings of blood chemistry; F17.200 Nicotine dependence, unspecified, uncomplicated; I25.10 Atherosclerotic heart disease of native coronary artery without angina pectoris; Z95.5 Presence of coronary angioplasty implant and graft; I10 Essential (primary) hypertension; E03.9 Hypothyroidism, unspecified; E87.6 Hypokalemia; E78.5 Hyperlipidemia, unspecified; Z92.3 Personal history of irradiation
CPT/HCPCS: 70491; 74177; 80053; 82140; 82150; 82550; 82552; 82607; 83605; 83615; 83690; 84484; 85025; 85610; 85730; 93971; 96361; 96374; 96375; 96376; C9113; J1170; J1650; J2270; J2405; J7030; J7042; J7512; Q9967

== ENCOUNTER 2018-03-21 09:18 | Inpatient (IN) | payer MEDICAID, OTHER ==
[~2018-03-21] VITALS: Ht 185.4 cm; Wt 56.0 kg
[~2018-03-21 09:18] MED LIST changes: +APIX5TAB PO; -ASPI81TA23 PO; -ATOR80TA45 PO; -HYDR-3583 PO; -MELO15TA20 PO; +OXYC-395 PO; +PRED5TAB PO
[2018-03-21 09:22] VITALS: BP 83/60; PULSE 113; RESP 22; TEMP 98.6; O2SAT 100
--- NOTE | 2018-03-21 09:28 | PD ---
HPI Chief Complaint: Chest Pain Time Seen by Provider: 09:28 Travel History International Travel<30 days: No Contact w/Intl Traveler<30days: No Traveled to known affect area: No History of Present Illness HPI 57-year-old male came to the emergency room with history of substernal chest pain. His is here who is giving most of the history. She says that patient has history of lung cancer with metastases and has advanced rapidly. He has been seeing Dr. Pruett as his oncologist. Patient had a CAT scan done 1 week ago that showed rapidly progressing masses and adenopathy in his chest. He was also diagnosed with subclavian DVT and is on Eliquis. She is concerned that he has not eaten in 1 month and has lost a lot of weight. She does not want him to starve and . She understands that his cancer has very poor prognosis as it has been explained to them by Dr. Pruett. However they are waiting to try radiation therapy and see if it works. They have seen Dr. Henriquez for radiation oncology but radiation has not started yet. She spoke with Dr. Pruett this morning regarding his condition and was asked to come to the emergency room. The expects the patient to be admitted and have a G- tube placed so that he can be fed. Patient was hypotensive in triage. He is awake and slowly answering questions but looks weak and in some distress. The substernal chest pain is localized with no aggravating or relieving factors. It started this morning. [facility] Past Medical History Narrative Medical List of his past medical, surgical, social and family history reviewed from the nursing note. Autoimmune Disease: Yes (LUPUS) Blood Disorders: No Cancer: Yes (LUNG WITH METS BRAIN, CERVICAL) Cardiac Catheterization: Yes Cardiovascular Problems: Yes High Cholesterol: Yes Chemotherapy: Yes Chest Pain: Yes Congestive Heart Failure: No Cerebrovascular Accident: No Coronary Artery Disease: Yes Diabetes: No Diminished Hearing: No Endocrine: No Gastrointestinal Disorders: Yes Genitourinary: No Hypertension: Yes Immune Disorder: No Musculoskeletal: Yes (CERVICAL DDD) Neurologic: No Psychiatric: No Reproductive: No Respiratory: Yes Immunizations Current: Yes Myocardial Infarction: Yes (AUG 2014) Seizures: No Thyroid Disease: Yes (HYPO) Ulcer: No Past Surgical History AICD: No Arteriovenous Shunt: No Cardiac Surgery: Yes (ANGIOPLASTY IN 1997) Coronary Stent: Yes (CIRCUMFLEX ARTERY AUG 2014) Insulin Pump: No Joint Replacement: No Pacemaker: No Other Surgery: Yes (l knee tumor removed) Social History Alcohol Use: No Tobacco Use: Yes Substance Use: No Allergies-Medications (Allergen,Severity, Reaction): Coded Allergies: No Known Allergies (Verified Allergy, Unknown, 03/21/18) Comments No known drug allergies. Reported Meds & Prescriptions Reported Meds & Active Scripts Active Eliquis (Apixaban) 5 Mg Tab 5 Mg PO DIRECTED 30 Days 10 mg twice daily for 7 days followed by 5 mg twice daily. Prednisone 5 Mg Tab 5 Mg PO DAILY 7 Days Oxycodone (Oxycodone HCl) 10 Mg Tab 10 Mg PO Q4H PRN Clotrimazole Lara (Clotrimazole) 10 Mg Troc 10 Mg BUCCAL 5 TIMES A DAY Reported Hydroxychloroquine (Hydroxychloroquine Sulfate) 200 Mg Tab 200 Mg PO DAILY Takw with food Hydrochlorothiazide 12.5 Mg Cap 12.5 Mg PO DAILY Allopurinol 100 Mg Tab 100 Mg PO DAILY Levothyroxine (Levothyroxine Sodium) 100 Mcg Tab 100 Mcg PO DAILY Metoprolol Tartrate 50 Mg Tab 50 Mg PO BID Narrative Medication List of his home medications reviewed from the nursing note. Review of Systems Except as stated in HPI: all other systems reviewed are Neg General / Constitutional: Positive: Weight Loss Cardiovascular: Positive: Chest Pain or Discomfort Physical Exam Narrative GENERAL: Awake, alert, moderate distress, emaciated SKIN: Focused skin assessment warm/dry. Pale HEAD: Atraumatic. Normocephalic. EYES: Pupils equal and round. No scleral icterus. No injection or drainage. ENT: No nasal bleeding or discharge. Mucous membranes pink and moist. NECK: Trachea midline. No JVD. CARDIOVASCULAR: Regular rate and rhythm. No murmur appreciated. RESPIRATORY: No accessory muscle use. Clear to auscultation. Breath sounds equal bilaterally. GASTROINTESTINAL: Abdomen soft, non-tender, nondistended. Hepatic and splenic margins not palpable. MUSCULOSKELETAL: No obvious deformities. No clubbing. No cyanosis. No edema. NEUROLOGICAL: Awake and alert. No obvious cranial nerve deficits. Motor grossly within normal limits. Normal speech. PSYCHIATRIC: Appropriate mood and affect; insight and judgment normal. Data Data Last Documented VS Vital Signs Date Time Temp Pulse Resp B/P (MAP) Pulse Ox O2 Delivery O2 Flow Rate FiO2 03/21/18 10:54 109 17 110/78 (89) 100 03/21/18 09:22 98.6 Orders Orders Complete Blood Count With Diff (03/21/18 09:35) Basic Metabolic Panel (Bmp) (03/21/18 09:35) Ct Thorax/ Chest Wo Iv Contras (03/21/18 ) Prothrombin Time / Inr (Pt) (03/21/18 09:35) Sodium Chlor 0.9% 1000 Ml Inj (Ns 1000 M (03/21/18 09:45) Morphine Inj (Morphine Inj) (03/21/18 09:45) Sodium Chlor 0.9% 1000 Ml Inj (Ns 1000 M (03/21/18 10:30) Morphine Inj (Morphine Inj) (03/21/18 11:00) Admit Order (Ed Use Only) (03/21/18 11:49) Labs Laboratory Tests Test 03/21/18 09:40 White Blood Count 9.9 TH/MM3 Red Blood Count 4.37 MIL/MM3 Hemoglobin 14.0 GM/DL Hematocrit 39.1 % Mean Corpuscular Volume 89.4 FL Mean Corpuscular Hemoglobin 32.1 PG Mean Corpuscular Hemoglobin Concent 35.8 % Red Cell Distribution Width 16.6 % Platelet Count 177 TH/MM3 Mean Platelet Volume 7.1 FL Neutrophils (%) (Auto) 83.5 % Lymphocytes (%) (Auto) 7.3 % Monocytes (%) (Auto) 8.8 % Eosinophils (%) (Auto) 0.1 % Basophils (%) (Auto) 0.3 % Neutrophils # (Auto) 8.3 TH/MM3 Lymphocytes # (Auto) 0.7 TH/MM3 Monocytes # (Auto) 0.9 TH/MM3 Eosinophils # (Auto) 0.0 TH/MM3 Basophils # (Auto) 0.0 TH/MM3 CBC Comment DIFF FINAL Differential Comment Prothrombin Time 12.7 SEC Prothromb Time International Ratio 1.3 RATIO Blood Urea Nitrogen 26 MG/DL Creatinine 1.06 MG/DL Random Glucose 78 MG/DL Calcium Level 9.1 MG/DL Sodium Level 131 MEQ/L Potassium Level 3.7 MEQ/L Chloride Level 92 MEQ/L Carbon Dioxide Level 21.9 MEQ/L Anion Gap 17 MEQ/L Estimat Glomerular Filtration Rate 72 ML/MIN Lipase 1020 U/L MDM Medical Decision Making Medical Screen Exam Complete: Yes Emergency Medical Condition: Yes Medical Record Reviewed: Yes Interpretation(s) Twelve-lead EKG was reviewed by me. Normal sinus rhythm, normal axis, tachycardia, nonspecific ST-T wave changes. Heart rate of 112 bpm. Differential Diagnosis Advanced cancer, increasing cancer burden in the chest, ACS Narrative Course 10:23 AM I spoke with Dr. Pruett and as per her patient is not a candidate for G-tube. His prognosis is extremely poor. She would want the patient to be admitted even for obvious so that she can sit down and talk to the as well as the patient regarding hospice. I completely agree with this. Patient appears to be a hospice candidate at this point. I did ask the about hospice and her expectations seem a little more optimistic and she wants to try radiation but would like the G-tube. Blood test results are back and patient is slightly hyponatremic. He was given 1 L of IV fluid bolus and I have ordered another liter. In my opinion this does not seem to be a cardiac pain and more related to the cancer itself. The CT scan that was done as per the radiologist does not show significant change from the last CT done 1 week ago. Awaiting for the hospitalist to call back for admission. The pain could also be related to the blood clot in the subclavian vein but patient is already on Eliquis and there is nothing further that can be done at this point for it. I have treated the patient for pain twice and the pain still seems intractable. Procedures EKG Prior to Arrival: No Physician Communication Physician Communication Dr. Pruett Diagnosis Primary Impression: lung cancer with metastasis Additional Impressions: Lung mass Chest pain Qualified Codes: R07.9 - Chest pain, unspecified Failure to thrive in adult Admitting Information Admitting Physician Requests: Observation Kerri Broderick MD Mar 21, 2018 09:28
[2018-03-21] MEDS ORDERED: MORPHINE SULFATE 4 MG/ML INJ IV PUSH ONE ×2 (09:45→11:00)
[2018-03-21] MEDS ORDERED: SODIUM CHLOR 0.9% 1000 ML INJ 1,000 ML IV ONE ×2 (09:45→10:30)
[2018-03-21 09:53] LABS: AUTOMATED NEUTROPHIL # 8.3 TH/MM3 (1.8-7.7); BASOPHIL % 0.3 % (0.0-2.0); EOSINOPHIL % 0.1 % (0.0-4.0); HEMATOCRIT 39.1 % (39.0-51.0); LYMPH % 7.3 % (9.0-44.0); LYMPHOCYTE # 0.7 TH/MM3 (1.0-4.8); MEAN CELL VOLUME 89.4 FL (80.0-100.0); MEAN CORPUSCULAR HEMOGLOBIN 32.1 PG (27.0-34.0); MEAN CORPUSCULAR HGB CONC 35.8 % (32.0-36.0); MEAN PLATELET VOLUME 7.1 FL (7.0-11.0); MONO % 8.8 % (0.0-8.0); MONOCYTE # 0.9 TH/MM3 (0-0.9); NEUT % 83.5 % (16.0-70.0); PLATELET COUNT 177 TH/MM3 (150-450); RED BLOOD COUNT 4.37 MIL/MM3 (4.50-5.90); RED CELL DISTRIBUTION WIDTH 16.6 % (11.6-17.2); WHITE BLOOD COUNT 9.9 TH/MM3 (4.0-11.0)
[2018-03-21 09:59] LABS: INTERNATIONAL NORMALIZED RATIO 1.3 RATIO; PROTHROMBIN TIME - PATIENT 12.7 SEC (9.8-11.6)
[2018-03-21 10:13] LABS: BICARBONATE 21.9 MEQ/L (21.0-32.0); CALCIUM 9.1 MG/DL (8.5-10.1); CREATININE 1.06 MG/DL (0.60-1.30)
--- NOTE | 2018-03-21 10:15 | RADRPT ---
EXAM DATE/TIME: 03/21/2018 09:59 [facility] COMPARISON: CT THORAX W CONTRAST, March 15, 2018, 13:42. INDICATIONS : Chest pain in patient with lung mass. Last imaged 6 days ago RADIATION DOSE: 12.07 CTDIvol (mGy) MEDICAL HISTORY : Carcinoma, lung. Metastatic, brain. SURGICAL HISTORY : None. ENCOUNTER: Initial ACUITY: 1 day PAIN SCALE: 10/10 LOCATION: upper chest TECHNIQUE: Volumetric scanning of the chest was performed. Using automated exposure control and adjustment of t he mA and/or kV according to patient size, radiation dose was kept as low as reasonably achievable to obtain optimal diagnostic quality images. DICOM format image data is available electronically for r eview and comparison. Follow-up recommendations for detected pulmonary nodules are based at a minimum on nodule size and pa tient risk factors according to Fleischner Society Guidelines. FINDINGS: LUNGS: Again seen are scattered nodular densities involving the right upper lobe. These are largely unchange d in the prior exam. Groundglass nodular densities seen within the superior segment of the right lowe r lobe which is also stable. PLEURAE: Small posterior layering right pleural effusion is stable. No effusion on the left. MEDIASTINUM: Superior and anterior mediastinal adenopathy as well as adenopathy within the visualized portions of the base of the neck particularly the supraclavicular regions. These are previously measured on the l ast study and are unchanged. The heart is normal in size. Tiny pericardial effusion. Coronary artery atherosclerotic calcifications. AXILLAE: Within normal limits. No lymphadenopathy. MUSCULOSKELETAL: Diffuse sclerotic metastases throughout the visualized bony structures. These are stable. MISCELLANEOUS: Multiple hepatic masses partially visualized. He isn't better seen on the prior study with contrast. Grossly unchanged. CONCLUSION: 1. No interval change in the short interval from the prior study. Again seen is widely metastatic dis ease to the bone, liver, and mediastinal lymph nodes. Nodular densities and ground glass nodules with in the right lung are felt to be infectious or inflammatory in nature. These are stable as well. 2. Stable tiny right effusion. Naresh Springer Jr., MD on March 21, 2018 at 10:08 Board Certified Radiologist. This report was verified electronically.
[2018-03-21 10:54] VITALS: BP 110/78; PULSE 109; RESP 17; O2SAT 100
[2018-03-21] MEDS ORDERED: LACTULOSE SYRUP 20 GM/30 ML CUP PO PRN (13:00)
[2018-03-21] MEDS ORDERED: NALOXONE HCL 0.4 MG/ML AMP IV PUSH PRN (13:00)
[2018-03-21] MEDS ORDERED: ONDANSETRON HCL 4 MG/2 ML VIAL IVP PRN (13:00)
[2018-03-21] MEDS ORDERED: SODIUM CHLORIDE 0.9% FLUSH 10 ML FLUSH IV FLUSH PRN (13:00)
[2018-03-21] MEDS ORDERED: MAGNESIUM HYDROXIDE SUSP 30 ML CUP PO PRN (13:00)
[2018-03-21] MEDS ORDERED: ACETAMINOPHEN 325 MG TAB PO PRN (13:00)
[2018-03-21] MEDS ORDERED: SENNOSIDES 8.6 MG TAB PO PRN (13:00)
[2018-03-21] MEDS ORDERED: BISACODYL 10 MG SUPP RECTAL PRN (13:00)
[2018-03-21 13:40] VITALS: BP 95/64; PULSE 87; RESP 14; O2SAT 96
[2018-03-21] MEDS ORDERED: ENOXAPARIN SODIUM 40 MG/0.4 ML SYRINGE SQ SCH (14:00)
[2018-03-21 16:02] VITALS: BP 88/61; PULSE 110; RESP 20; TEMP 98; O2SAT 93
[2018-03-21 16:13] VITALS: BP 96/54
[2018-03-21] MEDS: CLOTRIMAZOLE 10 MG TROCHE BUCCAL SCH ×2 (17:49→21:45)
--- NOTE | 2018-03-21 19:21 | HHI.HP ---
[facility] Sean Keyes DO Admission Diagnosis Failure to thrive, terminal cancer Diagnoses: Chief Complaint: Chest pain, neck pain Travel History International Travel<30 Days: No Contact w/Intl Traveler <30 Da: No Traveled to Known Affected Are: No History of Present Illness There is a 57-year-old male with past medical history of metastatic lung cancer to the liver and pancreas. Patient's was the one that provides most of the history states that the patient has been following with Dr. Pruett as his oncologist. The patient had a CAT scan done 1 week ago which showed rapidly progressing masses and adenopathy in his chest. He also was diagnosed with a subclavian DVT and is on Eliquis for that. The patient's is concerned that he has not eaten in 1 month and has lost a lot of weight. She states that she does not want the patient to start on diet. The patient's is aware that this cancer has a very poor prognosis, however they are waiting to try radiation therapy and see if that would work. They have already seen Dr. Henriquez from radiation oncology however this has not started yet. She states that she spoke about this to Dr. Giles and asked her to come to emergency department. The suspects the patient to be admitted and have a G-tube placed so that he can be fed. Patient is noted to be hypotensive and as per ED documentation was also hypotensive in triage. The patient complains of decreased appetite, substantial severe constant pain in the chest which is substernal radiating into the neck, both sides, aggravated by palpation and relieved partially by narcotic pain medications. The patient states that he has been vomiting on and off for the past several weeks, also complains of epigastric pain but this is much less and he is pain that he has on his upper chest. Review of Systems As per HPI, other systems reviewed by me and negative. Past Family Social History Past Medical History Metastatic lung cancer Hypertension Hyperlipidemia Hypothyroidism Lupus Coronary artery disease History of pancreatitis Past Surgical History Leg tumor removal at age 9 Cardiac stent 1 in 2013 Reported Medications Reported Meds & Active Scripts Active Eliquis (Apixaban) 5 Mg Tab 5 Mg PO DIRECTED 30 Days 10 mg twice daily for 7 days followed by 5 mg twice daily. Prednisone 5 Mg Tab 5 Mg PO DAILY 7 Days Oxycodone (Oxycodone HCl) 10 Mg Tab 10 Mg PO Q4H PRN Clotrimazole Lara (Clotrimazole) 10 Mg Troc 10 Mg BUCCAL 5 TIMES A DAY Reported Hydroxychloroquine (Hydroxychloroquine Sulfate) 200 Mg Tab 200 Mg PO DAILY Takw with food Hydrochlorothiazide 12.5 Mg Cap 12.5 Mg PO DAILY Allopurinol 100 Mg Tab 100 Mg PO DAILY Levothyroxine (Levothyroxine Sodium) 100 Mcg Tab 100 Mcg PO DAILY Metoprolol Tartrate 50 Mg Tab 50 Mg PO BID Allergies: Coded Allergies: No Known Allergies (Verified Allergy, Unknown, 03/21/18) Active Ordered Medications Current Medications Medications (Trade) Dose Ordered Sig/Mireya Route Start Time Stop Time Status Last Admin (NS Flush) 2 ml UNSCH PRN IV FLUSH 03/21/18 13:00 (NS Flush) 2 ml BID IV FLUSH 03/21/18 21:00 (Tylenol) 650 mg Q4H PRN PO 03/21/18 13:00 (Zofran Inj) 4 mg Q6H PRN IVP 03/21/18 13:00 (Narcan Inj) 0.4 mg UNSCH PRN IV PUSH 03/21/18 13:00 (Melany-Colace) 1 tab BID PO 03/21/18 21:00 (Milk Of Magnesia Liq) 30 ml Q12H PRN PO 03/21/18 13:00 (Senokot) 17.2 mg Q12H PRN PO 03/21/18 13:00 (Dulcolax Supp) 10 mg DAILY PRN RECTAL 03/21/18 13:00 (Lactulose Liq) 30 ml DAILY PRN PO 03/21/18 13:00 (Zyloprim) 100 mg DAILY PO 03/22/18 09:00 (Eliquis) 5 mg BID PO 03/21/18 21:00 (Mycelex) 10 mg 5 TIMES A DAY BUCCAL 03/21/18 18:00 03/21/18 17:49 (Plaquenil) 200 mg DAILY PO 03/22/18 09:00 (Synthroid) 100 mcg DAILY@0600 PO 03/22/18 06:00 (Roxicodone) 10 mg Q4H PRN PO 03/21/18 16:30 03/21/18 17:07 (Deltasone) 5 mg DAILY PO 03/22/18 09:00 Family History Patient's father from lung cancer. Patient's mother has kidney failure. Social History Former smoker. Denies alcohol and drugs. Physical Exam Vital Signs Vital Signs Date Time Temp Pulse Resp B/P (MAP) Pulse Ox O2 Delivery O2 Flow Rate FiO2 03/21/18 16:13 96/54 (68) 03/21/18 16:02 98.0 110 20 88/61 (70) 93 03/21/18 13:40 87 14 95/64 (74) 96 Room Air 03/21/18 10:54 109 17 110/78 (89) 100 03/21/18 09:22 98.6 113 22 83/60 (68) 100 Physical Exam GENERAL: This is a well-nourished, well-developed patient, in severe distress due to pain. SKIN: No rashes, ecchymoses or lesions. Cool and dry. HEAD: Atraumatic. Normocephalic. No temporal or scalp tenderness. EYES: Pupils equal round and reactive. Extraocular motions intact. No scleral icterus. No injection or drainage. ENT: Nose without bleeding, purulent drainage or septal hematoma. Throat without erythema, tonsillar hypertrophy or exudate. Uvula midline. Airway patent. NECK: Trachea midline. No JVD or lymphadenopathy. no meningeal signs. There is tenderness on palpation of both sides of the neck along with left supraclavicular tender lymphadenopathy. CARDIOVASCULAR: Regular rate and rhythm without murmurs, gallops, or rubs. RESPIRATORY: Clear to auscultation. Breath sounds equal bilaterally. No wheezes , rales, or rhonchi. GASTROINTESTINAL: Abdomen soft, non-tender, nondistended. No hepato-splenomegaly , or palpable masses. No guarding. MUSCULOSKELETAL: Extremities without clubbing, cyanosis, or edema. No joint tenderness, effusion, or edema noted. No calf tenderness. Negative Homans sign bilaterally. NEUROLOGICAL: Awake and alert. Cranial nerves II through XII intact. Motor and sensory grossly within normal limits. Five out of 5 muscle strength in all muscle groups. Normal speech. Laboratory Laboratory Tests Test 03/21/18 09:40 White Blood Count 9.9 Red Blood Count 4.37 Hemoglobin 14.0 Hematocrit 39.1 Mean Corpuscular Volume 89.4 Mean Corpuscular Hemoglobin 32.1 Mean Corpuscular Hemoglobin Concent 35.8 Red Cell Distribution Width 16.6 Platelet Count 177 Mean Platelet Volume 7.1 Neutrophils (%) (Auto) 83.5 Lymphocytes (%) (Auto) 7.3 Monocytes (%) (Auto) 8.8 Eosinophils (%) (Auto) 0.1 Basophils (%) (Auto) 0.3 Neutrophils # (Auto) 8.3 Lymphocytes # (Auto) 0.7 Monocytes # (Auto) 0.9 Eosinophils # (Auto) 0.0 Basophils # (Auto) 0.0 CBC Comment DIFF FINAL Differential Comment Prothrombin Time 12.7 Prothromb Time International Ratio 1.3 Blood Urea Nitrogen 26 Creatinine 1.06 Random Glucose 78 Calcium Level 9.1 Sodium Level 131 Potassium Level 3.7 Chloride Level 92 Carbon Dioxide Level 21.9 Anion Gap 17 Estimat Glomerular Filtration Rate 72 Result Diagram: 03/21/18 0940 03/21/18 0940 Imaging Last Impressions Chest CT 03/21/18 0000 Signed Impressions: Service Date/Time: Wednesday, March 21, 2018 09:59 - CONCLUSION: 1. No interval change in the short interval from the prior study. Again seen is widely metastatic disease to the bone, liver, and mediastinal lymph nodes. Nodular densities and ground glass nodules within the right lung are felt to be infectious or inflammatory in nature. These are stable as well. 2. Stable tiny right effusion. Naresh Springer Jr., MD Reviewed by me Carterrini VTE Risk Assessment Caprini VTE Risk Assessment: Mod/High Risk (score >= 2) Caprini Risk Assessment Model Point Value = 1 Point Value = 2 Point Value = 3 Point Value = 5 Age 41-60 Minor surgery BMI > 25 kg/m2 Swollen legs Varicose veins or History of unexplained or recurrent spontaneous Oral contraceptives or hormone replacement Sepsis (< 1 month) Serious lung disease, including pneumonia (< 1 month) Abnormal pulmonary function Acute myocardial infarction Congestive heart failure (< 1 month) History of inflammatory bowel disease Medical patient at bed rest Age 61-74 Arthroscopic surgery Major open surgery (> 45 min) Laparoscopic surgery (> 45 min) Malignancy Confined to bed (> 72 hours) Immobilizing plaster cast Central venous access Age >= 75 History of VTE Family history of VTE Factor V Leiden Prothrombin [id number] Lupus anticoagulant Anticardiolipin antibodies Elevated serum homocysteine Heparin-induced thrombocytopenia Other congenital or acquired thrombophilia Stroke (< 1 month) Elective arthroplasty Hip, pelvis, or leg fracture Acute spinal cord injury (< 1 month) Prophylaxis Regimen Total Risk Factor Score Risk Level Prophylaxis Regimen 0-1 Low Early ambulation 2 Moderate Order ONE of the following: *Sequential Compression Device (SCD) *Heparin 5000 units SQ BID 3-4 Higher Order ONE of the following medications: *Heparin 5000 units SQ TID *Enoxaparin/Lovenox 40 mg SQ daily (WT < 150 kg, CrCl > 30 mL/min) *Enoxaparin/Lovenox 30 mg SQ daily (WT < 150 kg, CrCl > 10-29 mL/min) *Enoxaparin/Lovenox 30 mg SQ BID (WT < 150 kg, CrCl > 30 mL/min) AND/OR *Sequential Compression Device (SCD) 5 or more Highest Order ONE of the following medications: *Heparin 5000 units SQ TID (Preferred with Epidurals) *Enoxaparin/Lovenox 40 mg SQ daily (WT < 150 kg, CrCl > 30 mL/min) *Enoxaparin/Lovenox 30 mg SQ daily (WT < 150 kg, CrCl > 10-29 mL/min) *Enoxaparin/Lovenox 30 mg SQ BID (WT < 150 kg, CrCl > 30 mL/min) AND *Sequential Compression Device (SCD) Assessment and Plan Problem List: (1) lung cancer with metastasis Status: Acute Plan: Patient known to Dr. Pruett. I will consult medical oncology. (2) Chest pain ICD Code: R07.9 - Chest pain, unspecified Plan: Chest pain radiated to the next likely secondary to tumor burden and malignancy. We will provide pain control with IV Dilaudid as needed. Serial EKGs and cardiac enzymes. (3) Hypotension ICD Code: I95.9 - Hypotension, unspecified Plan: Hypotension likely secondary to dehydration. Hold antihypertensive medications plan Ordered 500 mils IV fluid bolus and will place on normal saline at 100 cc maintenance. (4) Hyponatremia ICD Code: E87.1 - Hypo-osmolality and hyponatremia Plan: Likely related to hypovolemic hyponatremia. Start on IV normal saline and monitor BMP. (5) Dehydration ICD Code: E86.0 - Dehydration Status: Acute Plan: Due to poor oral intake. IV fluids. (6) Failure to thrive in adult ICD Code: R62.7 - Adult failure to thrive Plan: Patient with failure to thrive. BMI is 16.3 and patient with her appetite and poor oral intake. Consult dietitian. (7) Dysphagia ICD Code: R13.10 - Dysphagia, unspecified Plan: Patient complaining of difficulty swallowing. I will order a barium swallow to assess if there is any extrinsic compression from tumors in the mediastinum into the esophagus. (8) High anion gap metabolic acidosis ICD Code: E87.2 - Acidosis Status: Acute Plan: Anion gap is 17. Suspect the patient is likely on ketosis due to poor oral intake. I will check ketones, lactic acid. (9) Tachycardia ICD Code: R00.0 - Tachycardia, unspecified Status: Acute Plan: EKG shows sinus tachycardia with a ventricular rate of 1 12 bpm and a QTC of 400. Personally reviewed by me. No ST-T changes suggestive of active ischemia. (10) DVT (deep vein thrombosis) in ICD Code: O22.30 - Deep phlebothrombosis in , unspecified trimester; I82.409 - Acute embolism and thrombosis of unspecified deep veins of unspecified lower extremity Status: Chronic Plan: Upper review of imaging from previous admissions. The patient had a right upper extremity ultrasound which showed a subclavian DVT. On Eliquis. Continue (11) Hypothyroidism ICD Code: E03.9 - Hypothyroidism, unspecified Plan: On levothyroxine. Continue. (12) Arthritis ICD Code: M19.90 - Unspecified osteoarthritis, unspecified site Plan: On hydroxychloroquine. Continue. Assessment and Plan DVT prophylaxis: SCDs, on Eliquis. GI prophylaxis: Place on PPI. Code Status Full code Discussed Condition With Patient's , ED physician, patient. Problem Qualifiers (1) Hypotension: Qualified Codes: I95.9 - Hypotension, unspecified (2) Dysphagia: Qualified Codes: R13.10 - Dysphagia, unspecified Deven Koo MD Mar 21, 2018 19:21
[2018-03-21] MEDS ORDERED: HYDROmorphone HCL PF 0.5 MG/0.5 ML SYRINGE IV PUSH ONE (19:45)
[2018-03-21] MEDS ORDERED: HYDROmorphone HCL PF 0.5 MG/0.5 ML SYRINGE IV PUSH PRN (19:45)
[2018-03-21 21:06] LABS: TROPONIN I 0.03 NG/ML (0.02-0.05)
[2018-03-21] MEDS: SODIUM CHLORIDE 0.9% FLUSH 10 ML FLUSH IV FLUSH SCH (21:44)
[2018-03-21] MEDS: SODIUM CHLOR 0.9% 1000 ML INJ 1,000 ML IV SCH (21:44)
[2018-03-21] MEDS: APIXABAN 5 MG TABLET PO SCH (21:45)
[2018-03-21] MEDS: DOCUSATE SODIUM 50 MG/SENNA 8.6 MG TAB PO SCH (21:45)
[2018-03-21 22:00] VITALS: BP 98/50; PULSE 107; RESP 19; TEMP 97.7; O2SAT 97
[2018-03-22] VITALS (9 sets, daily range): BP systolic 84–105; BP diastolic 50–65; PULSE 77–162; RESP 17–20; TEMP 96.1–98.6; O2SAT 93–100
[2018-03-22] MEDS: HYDROmorphone HCL PF 0.5 MG/0.5 ML SYRINGE IV PUSH PRN ×6 (01:32→22:48)
[2018-03-22] MEDS: SODIUM CHLOR 0.9% 1000 ML INJ 1,000 ML IV SCH ×2 (05:15→14:58)
[2018-03-22] MEDS: LEVOTHYROXINE SODIUM 100 MCG TAB PO SCH (05:48)
[2018-03-22] MEDS: CLOTRIMAZOLE 10 MG TROCHE BUCCAL SCH ×6 (05:48→22:50)
[2018-03-22] MEDS ORDERED: METOPROLOL TARTRATE 25 MG TAB PO ONE ×2 (06:30→10:30)
[2018-03-22 07:06] LABS: AUTOMATED NEUTROPHIL # 7.9 TH/MM3 (1.8-7.7); BASOPHIL % 0.1 % (0.0-2.0); HEMATOCRIT 37.1 % (39.0-51.0); HEMOGLOBIN 13.1 GM/DL (13.0-17.0); LYMPH % 7.8 % (9.0-44.0); LYMPHOCYTE # 0.7 TH/MM3 (1.0-4.8); MEAN CELL VOLUME 90.6 FL (80.0-100.0); MEAN CORPUSCULAR HEMOGLOBIN 31.9 PG (27.0-34.0); MEAN CORPUSCULAR HGB CONC 35.2 % (32.0-36.0); MEAN PLATELET VOLUME 7.4 FL (7.0-11.0); MONO % 8.9 % (0.0-8.0); MONOCYTE # 0.8 TH/MM3 (0-0.9); NEUT % 83.2 % (16.0-70.0); PLATELET COUNT 156 TH/MM3 (150-450); RED CELL DISTRIBUTION WIDTH 16.9 % (11.6-17.2); WHITE BLOOD COUNT 9.5 TH/MM3 (4.0-11.0)
[2018-03-22 07:55] LABS: ALBUMIN 3.2 GM/DL (3.4-5.0); ALT (GPT) 114 U/L (12-78); AST (GOT) 161 U/L (15-37); BICARBONATE 23.7 MEQ/L (21.0-32.0); BLOOD UREA NITROGEN 28 MG/DL (7-18); CALCIUM 8.3 MG/DL (8.5-10.1); CHLORIDE 97 MEQ/L (98-107); CREATININE 1.02 MG/DL (0.60-1.30); GLOMERULAR FILTRATION RATE 75 ML/MIN (>89); GLUCOSE,RANDOM 78 MG/DL (74-106); SODIUM (NA) 135 MEQ/L (136-145)
[2018-03-22 07:57] LABS: ALKALINE PHOSPHATASE 299 U/L (45-117); TOTAL BILIRUBIN ADULT 2.1 MG/DL (0.2-1.0); TOTAL PROTEIN 6.7 GM/DL (6.4-8.2); TROPONIN I 0.04 NG/ML (0.02-0.05)
[2018-03-22] MEDS: SODIUM CHLORIDE 0.9% FLUSH 10 ML FLUSH IV FLUSH SCH ×2 (08:15→22:50)
[2018-03-22] MEDS: HYDROXYCHLOROQUINE SULFATE 200 MG TAB PO SCH (08:18)
[2018-03-22] MEDS: DOCUSATE SODIUM 50 MG/SENNA 8.6 MG TAB PO SCH ×3 (08:18→22:49)
[2018-03-22] MEDS: predniSONE 5 MG TAB PO SCH (08:18)
[2018-03-22] MEDS: ALLOPURINOL 100 MG TAB PO SCH (08:18)
[2018-03-22] MEDS: APIXABAN 5 MG TABLET PO SCH ×3 (08:18→22:49)
--- NOTE | 2018-03-22 09:58 | EKG ---
Date Performed: 03/21/2018 Time Performed: 09:36:19 PTAGE: 57 years EKG: SINUS TACHYCARDIA WITH SHORT GA INTERVAL INDETERMINATE AXIS ABNORMAL RHYTHM ECG NO PREVIOUS TRACING DOCTOR: Brandon Sanabria Interpretating Date/Time 03/22/2018 09:56:27
--- NOTE | 2018-03-22 10:22 | HHI.PR ---
Subjective Remarks Nausea but no vomiting. Tachycardic. Patient reports pain in the neck is better controlled. Objective Vitals Vital Signs Date Time Temp Pulse Resp B/P (MAP) Pulse Ox O2 Delivery O2 Flow Rate FiO2 03/22/18 08:25 98.6 162 18 90/65 (73) 93 03/22/18 03:30 98.0 101 20 105/57 (73) 96 03/22/18 00:45 98.1 100 19 100/50 (67) 98 03/22/18 00:00 101 03/21/18 22:00 97.7 107 19 98/50 (66) 97 03/21/18 16:13 96/54 (68) 03/21/18 16:02 98.0 110 20 88/61 (70) 93 03/21/18 13:40 87 14 95/64 (74) 96 Room Air 03/21/18 10:54 109 17 110/78 (89) 100 I/O 03/21/18 03/21/18 03/21/18 03/22/18 03/22/18 03/22/18 07:00 15:00 23:00 07:00 15:00 23:00 Intake Total 2000 ml 400 ml 62 ml Output Total 0 ml 1 ml Balance 2000 ml 400 ml 61 ml Intake Oral 400 ml 62 ml IV Total 2000 ml Output Urine Total 0 ml 1 ml # Voids 3 # Bowel Movements 0 0 Result Diagram: 03/22/18 0620 03/22/18 0620 Imaging Last Impressions Upper Extremity Ultrasound 03/22/18 0000 Signed Impressions: Service Date/Time: Thursday, March 22, 2018 08:42 - CONCLUSION: Very slow viscous flow in the right internal jugular vein with some nonocclusive thrombus along the wall, could be related to stenosis related to a previously indwelling IJ catheter. Brandon Degroot MD Modified Barium Swallow 03/22/18 0000 Signed Impressions: Service Date/Time: Thursday, March 22, 2018 00:00 - CONCLUSION: The patient aspirated during one single swallow where he jerked his head back. Brandon Degroot MD Chest CT 03/21/18 0000 Signed Impressions: Service Date/Time: Wednesday, March 21, 2018 09:59 - CONCLUSION: 1. No interval change in the short interval from the prior study. Again seen is widely metastatic disease to the bone, liver, and mediastinal lymph nodes. Nodular densities and ground glass nodules within the right lung are felt to be infectious or inflammatory in nature. These are stable as well. 2. Stable tiny right effusion. Naresh Springer Jr., MD Objective Remarks GENERAL: Cachectic looking patient, no acute distress. CARDIOVASCULAR: Heart rate in the 150s and regular rhythm without murmurs, gallops, or rubs. RESPIRATORY: Good respiratory efforts. Breath sounds equal and clear to auscultation bilaterally. GASTROINTESTINAL: Abdomen soft, non-tender, non-distended. Normal active bowel sounds MUSCULOSKELETAL: Some tenderness along the paraspinal muscles in the neck region. NEURO: Alert & Oriented x4 to person, place, time, situation. Moves all ext x4 PSYCH: Appropriate mood and affect. A/P Problem List: (1) lung cancer with metastasis Status: Acute Plan: Patient known to Dr. Pruett. Oncology has been consulted. (2) Chest pain ICD Code: R07.9 - Chest pain, unspecified Plan: Chest pain radiated to the next likely secondary to tumor burden and malignancy. Pain control with IV Dilaudid as needed. Serial cardiac enzymes negative. Could be related to pancreatitis. Pancreatic head mass was noted in the previous CT. (3) Hypotension ICD Code: I95.9 - Hypotension, unspecified Plan: Hypotension likely secondary to dehydration. Hold antihypertensive medications plan Other than other 1 L of IV fluid bolus. Continue IV fluid at 100 cc/h. (4) Hyponatremia ICD Code: E87.1 - Hypo-osmolality and hyponatremia Plan: Improving. Likely related to hypovolemic hyponatremia. Continue IV normal saline and monitor BMP. (5) Dehydration ICD Code: E86.0 - Dehydration Status: Acute Plan: Due to poor oral intake. IV fluids. (6) Failure to thrive in adult ICD Code: R62.7 - Adult failure to thrive Plan: Likely related to metastatic cancer Patient with failure to thrive. BMI is 16.3 and patient with her appetite and poor oral intake. Consult dietitian. (7) Dysphagia ICD Code: R13.10 - Dysphagia, unspecified Plan: Patient complaining of difficulty swallowing. Barium swallow pending (8) High anion gap metabolic acidosis ICD Code: E87.2 - Acidosis Status: Resolved (9) Tachycardia ICD Code: R00.0 - Tachycardia, unspecified Status: Acute Plan: Likely secondary to dehydration, cachectic state. IV fluid as above. Give another dose of metoprolol 25 mg 1 and schedule 25 mg p.o. twice daily. (10) Hypothyroidism ICD Code: E03.9 - Hypothyroidism, unspecified (11) Arthritis ICD Code: M19.90 - Unspecified osteoarthritis, unspecified site (12) Acute pancreatitis ICD Code: K85.90 - Acute pancreatitis without necrosis or infection, unspecified Status: Acute Plan: Secondary to pancreatic mass IV fluid as above. Continue to monitor. Further discussion per oncology (13) DVT (deep venous thrombosis) ICD Code: I82.409 - Acute embolism and thrombosis of unspecified deep veins of unspecified lower extremity Plan: Previous imaging showed the patient had a right upper extremity ultrasound which showed a subclavian DVT. On Eliquis. Continue Assessment and Plan 57-year-old male with metastatic cancer. The patient appeared to have been worsening. Oncology will follow up to discuss prognosis with the patient and his family. Problem Qualifiers (1) Hypotension: Qualified Codes: I95.9 - Hypotension, unspecified (2) Dysphagia: Qualified Codes: R13.10 - Dysphagia, unspecified (3) Acute pancreatitis: Casey Ruff MD Mar 22, 2018 10:22
[2018-03-22] MEDS ORDERED: SODIUM CHLOR 0.9% 1000 ML INJ 1,000 ML IV ONE (10:30)
--- NOTE | 2018-03-22 10:39 | RADRPT ---
EXAM DATE/TIME: 03/22/2018 08:42 [facility] COMPARISON: No previous studies available for comparison. INDICATIONS : Bilateral arm swelling. MEDICAL HISTORY : Hypothyroidism. Myocardial infarction. Carcinoma, lung. Mets to brain and cervix. Coronary artery dis ease. Hypercholesterolemia. Chest pain. HTN. LUPUS. SURGICAL HISTORY : Angioplasty.Coronary artery stent. Cardiac cath. Left knee surgery. Chemotherapy. ENCOUNTER: Initial ACUITY: 1 day PAIN SCORE: 10/10 LOCATION: Bilateral arm. FINDINGS: RIGHT UPPER EXTREMITY: There is spontaneous flow documented in the brachial, basilic, cephalic, axillary, and subclavian vei ns. The vessels are compressible and augmentation response is documented. No filling defects are se en. The flow is phasic with respiration. There is very slow flow in the internal jugular vein. There may be some thrombus along the wall of that seen in patients with chronic indwelling catheters LEFT UPPER EXTREMITY: There is spontaneous flow documented in the brachial, basilic, cephalic, axillary, and subclavian vei ns. The vessels are compressible and augmentation response is documented. No filling defects are se en. The flow is phasic with respiration. Direction of flow in the jugular vein is caudal. CONCLUSION: Very slow viscous flow in the right internal jugular vein with some nonocclusive thrombus along the w all, could be related to stenosis related to a previously indwelling IJ catheter. Brandon Degroot MD on March 22, 2018 at 10:35 Board Certified Radiologist. This report was verified electronically.
[2018-03-22] MEDS: DRONABINOL 5 MG CAP PO SCH ×2 (11:00→16:48)
--- NOTE | 2018-03-22 12:01 | RADRPT ---
EXAM DATE/TIME: 03/22/2018 00:00 [facility] COMPARISON: No previous studies available for comparison. INDICATIONS : Dysphagia. Patient has difficulty swallowing pills. FLUORO TIME: 1.5 minutes IMAGE COUNT: 0 CONTRAST: Dose as prescribed by speech pathologist. MEDICAL HISTORY : Carcinoma, lung. Mets to liver and pancreas. Radiation. Hypertension. SURGICAL HISTORY : ENCOUNTER: Subsequent ACUITY: 7 - 11 months PAIN SCORE: 0/10 LOCATION: Esophagus. FINDINGS: A modified barium swallow was performed with speech pathology. Patient was given a variety of liquids to swallow. For a full detailed report, see report by the speech pathologist. CONCLUSION: The patient aspirated during one single swallow where he jerked his head back. Brandon Degroot MD on March 22, 2018 at 11:58 Board Certified Radiologist. This report was verified electronically.
[2018-03-22 13:45] LABS: TROPONIN I 0.04 NG/ML (0.02-0.05)
[2018-03-22] MEDS: METOPROLOL TARTRATE 25 MG TAB PO SCH (21:00)
[2018-03-22] MEDS: LORazepam 2 MG/ML VIAL IV PUSH PRN (22:48)
[2018-03-23] VITALS (10 sets, daily range): BP systolic 85–100; BP diastolic 60–73; PULSE 102–124; RESP 17–20; TEMP 97.4–98.3; O2SAT 94–96
[2018-03-23] MEDS: SODIUM CHLOR 0.9% 1000 ML INJ 1,000 ML IV SCH ×2 (00:43→20:15)
[2018-03-23] MEDS: HYDROmorphone HCL PF 0.5 MG/0.5 ML SYRINGE IV PUSH PRN ×7 (01:49→23:49)
[2018-03-23] MEDS: CLOTRIMAZOLE 10 MG TROCHE BUCCAL SCH ×5 (05:33→22:00)
[2018-03-23] MEDS: LEVOTHYROXINE SODIUM 100 MCG TAB PO SCH (05:33)
[2018-03-23 07:42] LABS: HEMATOCRIT 37.7 % (39.0-51.0); HEMOGLOBIN 12.8 GM/DL (13.0-17.0); MEAN CELL VOLUME 91.3 FL (80.0-100.0); MEAN CORPUSCULAR HEMOGLOBIN 31.1 PG (27.0-34.0); MEAN CORPUSCULAR HGB CONC 34.1 % (32.0-36.0); MEAN PLATELET VOLUME 7.6 FL (7.0-11.0); PLATELET COUNT 157 TH/MM3 (150-450); RED BLOOD COUNT 4.13 MIL/MM3 (4.50-5.90); RED CELL DISTRIBUTION WIDTH 16.9 % (11.6-17.2); WHITE BLOOD COUNT 11.5 TH/MM3 (4.0-11.0)
[2018-03-23 08:02] LABS: ALBUMIN 3.1 GM/DL (3.4-5.0); BICARBONATE 19.6 MEQ/L (21.0-32.0); CREATININE 0.95 MG/DL (0.60-1.30); DIRECT BILIRUBIN ADULT 1.4 MG/DL (0.0-0.2)
[2018-03-23 08:03] LABS: INDIRECT BILIRUBIN 0.6 MG/DL (0.0-0.8); TOTAL PROTEIN 6.7 GM/DL (6.4-8.2)
--- NOTE | 2018-03-23 08:23 | MB ---
cc: Liana Pruett MD DATE: 03/22/2018 CHIEF COMPLAINT: Small cell lung cancer. HISTORY OF PRESENT ILLNESS: Mr. Rene is a 57-year-old gentleman with a history of small cell lung cancer. His cancer journey began in 06/2017 when he was found to have limited stage disease with hilar mass, mediastinal lymph nodes. He began treatment with carboplatin and etoposide in 07/2017 and received 4 cycles. His chemotherapy ended 09/2017. He was then referred for consideration of thoracic XRT. He received one dose of thoracic XRT and was found to have new disease in the brain. He underwent whole brain radiation therapy. With growth of his disease, he and his returned to [place] to be near family. He subsequently received 1 cycle of immunotherapy with ipilimumab and nivolumab. Unfortunately, he has had gross progression of his disease on this therapy. 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 He was having severe failure to thrive at home and he was admitted to the hospital. PAST MEDICAL HISTORY: Lupus, coronary artery disease, COPD, hypertension. PAST SURGICAL HISTORY: Coronary artery stent, angioplasty. ALLERGIES: NO KNOWN DRUG ALLERGIES. FAMILY HISTORY: Parents are both . SOCIAL HISTORY: The patient is . He has a good support system. He is a longtime smoker. Past alcohol use. REVIEW OF SYSTEMS: Positive for swelling of bilateral arms. Diffuse body aches. The remainder of the review of systems is negative. PHYSICAL EXAMINATION: GENERAL: Thin, chronically ill-appearing man in no distress. HEENT: Head is normocephalic, atraumatic, alopecia. Eyes: Pupils equal, round and reactive to light and accommodation. NECK: Supple. HEMATOLOGIC: No petechiae or purpura. RESPIRATORY: No respiratory distress. EXTREMITIES: With bilateral upper extremity and lower extremity swelling. NEUROLOGIC: Mild left-sided weakness. PSYCHIATRIC: Appropriate mood and affect. ASSESSMENT AND PLAN: Extensive stage small cell lung cancer with progression after eek-based therapy and after immune therapy. Due to extreme worsening of performance status, the patient would not be candidate for any further chemotherapy. A long discussion held with the patient and his . Discussed that any further therapy at this point in time would cause more harm than good. Discussed that with growing cancer, our best choice would be to move forward with hospice. Discussed with the patient and his report that they had known that this day was coming soon. The patient was initially overwhelmed by finally hearing what he had suspected. He wishes to stay in the hospital, work on pain control and symptom management. He eventually would like to go to an inpatient hospice facility. The patient and report that they had previously made contact with [facility], but at that point in time were not yet ready to commit to hospice. Will move forward with hospice consult. He reports that he does not want to at home and would like to go to one of the inpatient facilities. Will ask both our palliative care team and hospice teams to see patient. Inpatient oncology service will continue to follow. MD ALYCE Cooper/JULISSA , 08:04 AM , 08:22 AM [place]
[2018-03-23] MEDS: ALLOPURINOL 100 MG TAB PO SCH (09:00)
[2018-03-23] MEDS: DOCUSATE SODIUM 50 MG/SENNA 8.6 MG TAB PO SCH ×2 (09:00→21:00)
[2018-03-23] MEDS: METOPROLOL TARTRATE 25 MG TAB PO SCH ×2 (09:00→21:00)
[2018-03-23] MEDS: HYDROXYCHLOROQUINE SULFATE 200 MG TAB PO SCH (09:00)
[2018-03-23] MEDS: predniSONE 5 MG TAB PO SCH (09:04)
[2018-03-23] MEDS: APIXABAN 5 MG TABLET PO SCH ×2 (09:04→21:00)
[2018-03-23] MEDS: SODIUM CHLORIDE 0.9% FLUSH 10 ML FLUSH IV FLUSH SCH ×2 (09:10→21:00)
[2018-03-23] MEDS: DRONABINOL 5 MG CAP PO SCH ×2 (11:00→16:00)
--- NOTE | 2018-03-23 12:31 | HHI.HCPN ---
Palliative care consulted to assist with goals of care. In review of records it appears family has elected to meet with hospice. Palliative care will remain available to assist with communication and further address goals of care should patient and family not be ready to proceed with hospice after meeting with them. Kaylee Springer MSW, [employer] Mar 23, 2018 12:31
[2018-03-23] MEDS ORDERED: THROMBIN (TOPICAL) 5,000 UNIT VIAL ONE (14:13)
[2018-03-23] MEDS ORDERED: GELFOAM SIZE 100 ONE (14:14)
[2018-03-23] MEDS ORDERED: LIDOCAINE 1%/EPINEPHrine 1:100,000 SOLN 50 ML VIAL ONE (14:14)
[2018-03-23] MEDS ORDERED: GENTAMICIN SULFATE 80 MG/2 ML VIAL ONE (14:14)
--- NOTE | 2018-03-23 15:32 | HHI.PR ---
Subjective Remarks Patient reports feeling very tired. Pain is controlled with current pain medications. Objective Vitals Vital Signs Date Time Temp Pulse Resp B/P (MAP) Pulse Ox O2 Delivery O2 Flow Rate FiO2 03/23/18 12:18 97.4 114 17 85/66 (72) 96 03/23/18 12:00 110 03/23/18 08:00 97.4 105 17 88/64 (72) 95 03/23/18 08:00 112 03/23/18 04:45 98.3 105 19 98/60 (73) 95 03/23/18 00:40 97.9 102 18 95/62 (73) 95 03/22/18 23:10 97.4 92 17 84/57 (66) 98 03/22/18 21:37 97.2 82 18 92/61 (71) 100 03/22/18 20:00 77 03/22/18 16:00 96.1 81 18 84/62 (69) 93 I/O 03/22/18 03/22/18 03/22/18 03/23/18 03/23/18 03/23/18 07:00 15:00 23:00 07:00 15:00 23:00 Intake Total 62 ml 480 ml 1100 ml Output Total 1 ml Balance 61 ml 480 ml 1100 ml Intake Oral 62 ml 480 ml 100 ml IV Total 1000 ml Output Urine Total 1 ml # Voids 3 4 2 # Bowel Movements 0 0 Result Diagram: 03/23/18 0638 03/23/18 0638 Objective Remarks GENERAL: Cachectic looking patient, no acute distress. CARDIOVASCULAR: Heart rate in the 110s and regular rhythm without murmurs, gallops, or rubs. RESPIRATORY: Good respiratory efforts. Breath sounds equal and clear to auscultation bilaterally. GASTROINTESTINAL: Abdomen soft, non-tender, non-distended. Normal active bowel sounds MUSCULOSKELETAL: Some tenderness along the paraspinal muscles in the neck region. NEURO: Alert & Oriented x4 to person, place, time, situation. Moves all ext x4 PSYCH: Appropriate mood and affect. A/P Problem List: (1) lung cancer with metastasis Status: Acute Plan: Appreciate input from Dr. Pruett. Patient failed [place] based therapy and immunotherapy. He is worsening and is appropriate for hospice. Family agrees. Hospice consulted. (2) Chest pain ICD Code: R07.9 - Chest pain, unspecified Plan: Chest pain radiated to the next likely secondary to tumor burden and malignancy. Pain control with IV Dilaudid as needed. Serial cardiac enzymes negative. Could be related to pancreatitis. Pancreatic head mass was noted in the previous CT. (3) Hypotension ICD Code: I95.9 - Hypotension, unspecified Plan: Hypotension likely secondary to dehydration. Hold antihypertensive medications Continue IV fluid at 100 cc/h. (4) Hyponatremia ICD Code: E87.1 - Hypo-osmolality and hyponatremia Plan: Likely related to hypovolemic hyponatremia. Continue IV normal saline (5) Dehydration ICD Code: E86.0 - Dehydration Status: Acute Plan: Due to poor oral intake. IV fluids. (6) Failure to thrive in adult ICD Code: R62.7 - Adult failure to thrive Plan: Likely related to metastatic cancer Patient with failure to thrive. BMI is 16.3 and patient with her appetite and poor oral intake. See above (7) Dysphagia ICD Code: R13.10 - Dysphagia, unspecified (8) High anion gap metabolic acidosis ICD Code: E87.2 - Acidosis Status: Resolved (9) Tachycardia ICD Code: R00.0 - Tachycardia, unspecified Status: Acute (10) Hypothyroidism ICD Code: E03.9 - Hypothyroidism, unspecified (11) Arthritis ICD Code: M19.90 - Unspecified osteoarthritis, unspecified site (12) Acute pancreatitis ICD Code: K85.90 - Acute pancreatitis without necrosis or infection, unspecified Status: Acute Plan: Secondary to pancreatic mass IV fluid as above. Continue to monitor. (13) DVT (deep venous thrombosis) ICD Code: I82.409 - Acute embolism and thrombosis of unspecified deep veins of unspecified lower extremity Plan: Previous imaging showed the patient had a right upper extremity ultrasound which showed a subclavian DVT. On Eliquis. Continue Assessment and Plan 57-year-old male with metastatic cancer. Extensive stage small cell lung cancer with progression even after [place]-based therapy and after immune therapy. Appreciate oncology following, discussed with Dr. Pruett today. The patient is appropriate for hospice. Patient and his agreed to hospice. Consult was placed. Discharge Planning Will likely need discharged to hospice care center to control symptoms. Hospice consult pending. Problem Qualifiers (1) Hypotension: Qualified Codes: I95.9 - Hypotension, unspecified (2) Dysphagia: Qualified Codes: R13.10 - Dysphagia, unspecified (3) Acute pancreatitis: Casey Ruff MD Mar 23, 2018 15:31
[2018-03-23] MEDS: LORazepam 2 MG/ML VIAL IV PUSH PRN (21:10)
--- NOTE | 2018-03-23 23:45 | PD.ONC.PN ---
Subjective Subjective Remarks Resting comfortably in bed. at bedside. Reports restless night and painful night. Improved this morning. Objective Data Date Time Temp Pulse Resp B/P (MAP) Pulse Ox O2 Delivery O2 Flow Rate FiO2 03/23/18 16:45 97.6 114 20 100/66 (77) 95 03/23/18 16:00 110 03/23/18 12:18 97.4 114 17 85/66 (72) 96 03/23/18 12:00 110 03/23/18 08:00 97.4 105 17 88/64 (72) 95 03/23/18 08:00 112 03/23/18 04:45 98.3 105 19 98/60 (73) 95 03/23/18 00:40 97.9 102 18 95/62 (73) 95 Result Diagram: 03/23/18 0638 03/23/18 0638 Laboratory Results Laboratory Tests Test 03/23/18 06:38 White Blood Count 11.5 TH/MM3 Red Blood Count 4.13 MIL/MM3 Hemoglobin 12.8 GM/DL Hematocrit 37.7 % Mean Corpuscular Volume 91.3 FL Mean Corpuscular Hemoglobin 31.1 PG Mean Corpuscular Hemoglobin Concent 34.1 % Red Cell Distribution Width 16.9 % Platelet Count 157 TH/MM3 Mean Platelet Volume 7.6 FL Blood Urea Nitrogen 29 MG/DL Creatinine 0.95 MG/DL Random Glucose 74 MG/DL Total Protein 6.7 GM/DL Albumin 3.1 GM/DL Calcium Level 8.0 MG/DL Alkaline Phosphatase 288 U/L Aspartate Amino Transf (AST/SGOT) 156 U/L Alanine Aminotransferase (ALT/SGPT) 113 U/L Total Bilirubin 2.0 MG/DL Direct Bilirubin 1.4 MG/DL Sodium Level 135 MEQ/L Potassium Level 4.2 MEQ/L Chloride Level 101 MEQ/L Carbon Dioxide Level 19.6 MEQ/L Anion Gap 14 MEQ/L Estimat Glomerular Filtration Rate 82 ML/MIN Indirect Bilirubin 0.6 MG/DL Lipase 1064 U/L Administered Medications Medications (Trade) Dose Ordered Sig/Mireya Route PRN Reason Start Time Stop Time Status Last Admin Dose Admin Sodium Chloride (NS Flush) 2 ml UNSCH PRN IV FLUSH FLUSH AFTER USING IV ACCESS 03/21/18 13:00 03/22/18 11:33 Sodium Chloride (NS Flush) 2 ml BID IV FLUSH 03/21/18 21:00 03/23/18 09:10 Ondansetron HCl (Zofran Inj) 4 mg Q6H PRN IVP NAUSEA OR VOMITING 03/21/18 13:00 03/22/18 11:33 Senna/Docusate Sodium (Melany-Colace) 1 tab BID PO 03/21/18 21:00 03/22/18 08:18 Allopurinol (Zyloprim) 100 mg DAILY PO 03/22/18 09:00 03/22/18 08:18 Apixaban (Eliquis) 5 mg BID PO 03/21/18 21:00 03/23/18 09:04 Clotrimazole (Mycelex) 10 mg 5 TIMES A DAY BUCCAL 03/21/18 18:00 03/23/18 18:15 Hydroxychloroquine Sulfate (Plaquenil) 200 mg DAILY PO 03/22/18 09:00 03/22/18 08:18 Levothyroxine Sodium (Synthroid) 100 mcg DAILY@0600 PO 03/22/18 06:00 03/22/18 05:48 Prednisone (Deltasone) 5 mg DAILY PO 03/22/18 09:00 03/23/18 09:04 Sodium Chloride 1,000 ml @ 100 mls/hr Q10H IV 03/21/18 19:15 03/23/18 20:15 Dronabinol (Marinol) 5 mg BID@11,16 PO 03/22/18 11:00 03/22/18 16:48 Hydromorphone HCl (Dilaudid Pf Inj) 1 mg Q3H PRN IV PUSH PAIN SCALE 5 TO 10 03/22/18 22:30 03/23/18 16:34 Hydromorphone HCl (Dilaudid Pf Inj) 0.5 mg Q3H PRN IV PUSH PAIN SCALE 1 TO 4 03/22/18 22:30 03/23/18 20:15 Lorazepam (Ativan Inj) 1 mg Q4H PRN IV PUSH anxiety 03/22/18 22:30 03/23/18 21:10 Objective Remarks GENERAL: Well-nourished, well-developed patient. SKIN: Warm and dry. HEAD: Normocephalic. EYES: No scleral icterus. No injection or drainage. NECK: Supple, trachea midline. No JVD or lymphadenopathy. LYMPHATIC: No adenopathy. CARDIOVASCULAR: Regular rate and rhythm without murmurs. RESPIRATORY: Breath sounds equal bilaterally. No accessory muscle use. GASTROINTESTINAL: Abdomen soft, non-tender, nondistended. EXTREMITIES: No cyanosis, or edema. MUSCULOSKELETAL: Adequate muscle tone. NEUROLOGICAL: No obvious focal deficit. Awake, alert, and oriented x3. PSYCHIATRIC: Appropriate mood and affect; insight and judgment normal. Assessment/Plan Assessment 1. Extensive stage SCLC: progressive despite multiple lines of therapy. Will consult palliative care for symptom management and hospice consult. Liana Pruett MD Mar 23, 2018 23:45
[2018-03-24] VITALS: BP 100/64; PULSE 114; RESP 18; TEMP 97.6; O2SAT 93
[2018-03-24 04:00] VITALS: BP 91/69; PULSE 107; RESP 18; TEMP 97.2; O2SAT 92
[2018-03-24] MEDS: HYDROmorphone HCL PF 0.5 MG/0.5 ML SYRINGE IV PUSH PRN ×3 (05:57→10:50)
[2018-03-24] MEDS: SODIUM CHLOR 0.9% 1000 ML INJ 1,000 ML IV SCH (05:59)
[2018-03-24] MEDS: CLOTRIMAZOLE 10 MG TROCHE BUCCAL SCH (06:00)
[2018-03-24] MEDS: LEVOTHYROXINE SODIUM 100 MCG TAB PO SCH (06:00)
[2018-03-24 07:30] VITALS: PULSE 100
[2018-03-24 08:00] VITALS: BP 86/65; PULSE 107; RESP 18; TEMP 97.2; O2SAT 97
[2018-03-24] MEDS ORDERED: HYDROmorphone HCL PF 2 MG/ML VIAL IV PUSH ONE (11:00)
--- NOTE | 2018-03-24 16:09 | HHI.DS ---
Discharge Summary Admission Date Mar 22, 2018 at 08:43 Discharge Date: Mar 24, 2018 Admitting Diagnosis Failure to thrive, terminal cancer (1) lung cancer with metastasis Status: Acute (2) Chest pain ICD Code: R07.9 - Chest pain, unspecified (3) Hypotension ICD Code: I95.9 - Hypotension, unspecified (4) Hyponatremia ICD Code: E87.1 - Hypo-osmolality and hyponatremia (5) Dehydration ICD Code: E86.0 - Dehydration Status: Acute (6) Failure to thrive in adult ICD Code: R62.7 - Adult failure to thrive (7) Dysphagia ICD Code: R13.10 - Dysphagia, unspecified (8) High anion gap metabolic acidosis ICD Code: E87.2 - Acidosis Status: Resolved (9) Tachycardia ICD Code: R00.0 - Tachycardia, unspecified Status: Acute (10) Hypothyroidism ICD Code: E03.9 - Hypothyroidism, unspecified (11) Arthritis ICD Code: M19.90 - Unspecified osteoarthritis, unspecified site (12) Acute pancreatitis ICD Code: K85.90 - Acute pancreatitis without necrosis or infection, unspecified Status: Acute (13) DVT (deep venous thrombosis) ICD Code: I82.409 - Acute embolism and thrombosis of unspecified deep veins of unspecified lower extremity Procedures None Brief History - From Admission There is a 57-year-old male with past medical history of metastatic lung cancer to the liver and pancreas. Patient's was the one that provides most of the history states that the patient has been following with Dr. Pruett as his oncologist. The patient had a CAT scan done 1 week ago which showed rapidly progressing masses and adenopathy in his chest. He also was diagnosed with a subclavian DVT and is on Eliquis for that. The patient's is concerned that he has not eaten in 1 month and has lost a lot of weight. She states that she does not want the patient to start on diet. The patient's is aware that this cancer has a very poor prognosis, however they are waiting to try radiation therapy and see if that would work. They have already seen Dr. Henriquez from radiation oncology however this has not started yet. She states that she spoke about this to Dr. Giles and asked her to come to emergency department. The suspects the patient to be admitted and have a G-tube placed so that he can be fed. Patient is noted to be hypotensive and as per ED documentation was also hypotensive in triage. The patient complains of decreased appetite, substantial severe constant pain in the chest which is substernal radiating into the neck, both sides, aggravated by palpation and relieved partially by narcotic pain medications. The patient states that he has been vomiting on and off for the past several weeks, also complains of epigastric pain but this is much less and he is pain that he has on his upper chest. CBC/BMP: 03/23/18 0638 03/23/18 0638 Significant Findings Laboratory Tests Test 03/21/18 20:12 03/22/18 06:20 03/22/18 12:14 03/23/18 06:38 Red Blood Count 4.10 MIL/MM3 (4.50-5.90) 4.13 MIL/MM3 (4.50-5.90) Hematocrit 37.1 % (39.0-51.0) 37.7 % (39.0-51.0) Neutrophils (%) (Auto) 83.2 % (16.0-70.0) Lymphocytes (%) (Auto) 7.8 % (9.0-44.0) Monocytes (%) (Auto) 8.9 % (0.0-8.0) Neutrophils # (Auto) 7.9 TH/MM3 (1.8-7.7) Lymphocytes # (Auto) 0.7 TH/MM3 (1.0-4.8) Blood Urea Nitrogen 28 MG/DL (7-18) 29 MG/DL (7-18) Albumin 3.2 GM/DL (3.4-5.0) 3.1 GM/DL (3.4-5.0) Calcium Level 8.3 MG/DL (8.5-10.1) 8.0 MG/DL (8.5-10.1) Alkaline Phosphatase 299 U/L (45-117) 288 U/L (45-117) Aspartate Amino Transf (AST/SGOT) 161 U/L (15-37) 156 U/L (15-37) Alanine Aminotransferase (ALT/SGPT) 114 U/L (12-78) 113 U/L (12-78) Total Bilirubin 2.1 MG/DL (0.2-1.0) 2.0 MG/DL (0.2-1.0) Sodium Level 135 MEQ/L (136-145) 135 MEQ/L (136-145) Chloride Level 97 MEQ/L (98-107) Estimat Glomerular Filtration Rate 75 ML/MIN (>89) 82 ML/MIN (>89) Total Creatine Kinase 339 U/L (39-308) White Blood Count 11.5 TH/MM3 (4.0-11.0) Hemoglobin 12.8 GM/DL (13.0-17.0) Direct Bilirubin 1.4 MG/DL (0.0-0.2) Carbon Dioxide Level 19.6 MEQ/L (21.0-32.0) Lipase 1064 U/L (73-393) Imaging Last Impressions Upper Extremity Ultrasound 03/22/18 0000 Signed Impressions: Service Date/Time: Thursday, March 22, 2018 08:42 - CONCLUSION: Very slow viscous flow in the right internal jugular vein with some nonocclusive thrombus along the wall, could be related to stenosis related to a previously indwelling IJ catheter. Brandon Degroot MD Modified Barium Swallow 03/22/18 0000 Signed Impressions: Service Date/Time: Thursday, March 22, 2018 00:00 - CONCLUSION: The patient aspirated during one single swallow where he jerked his head back. Brandon Degroot MD Chest CT 03/21/18 0000 Signed Impressions: Service Date/Time: Wednesday, March 21, 2018 09:59 - CONCLUSION: 1. No interval change in the short interval from the prior study. Again seen is widely metastatic disease to the bone, liver, and mediastinal lymph nodes. Nodular densities and ground glass nodules within the right lung are felt to be infectious or inflammatory in nature. These are stable as well. 2. Stable tiny right effusion. Naresh Springer Jr., MD PE at Discharge GENERAL: Cachectic looking patient, no acute distress. CARDIOVASCULAR: Heart rate in the 110s and regular rhythm without murmurs, gallops, or rubs. RESPIRATORY: Good respiratory efforts. Breath sounds equal and clear to auscultation bilaterally. GASTROINTESTINAL: Abdomen soft, non-tender, non-distended. Normal active bowel sounds MUSCULOSKELETAL: Some tenderness along the paraspinal muscles in the neck region. NEURO: Alert & Oriented x4 to person, place, time, situation. Moves all ext x4 PSYCH: Appropriate mood and affect. Pt update on day of discharge Patient reports he is doing okay. Pain is controlled with the pain medications. Hospital Course 57-year-old male with metastatic cancer. Extensive stage small cell lung cancer with progression even after [place]-based therapy and after immune therapy. Appreciate oncology following, discussed with Dr. Pruett. The patient is appropriate for hospice. Patient and his agreed to hospice. The patient is discharged to hospice care center for symptom management. (1) lung cancer with metastasis Status: Acute Plan: Appreciate input from Dr. Pruett. Patient failed [place] based therapy and immunotherapy. He is worsening and is appropriate for hospice. Family agrees. (2) Chest pain ICD Code: R07.9 - Chest pain, unspecified Plan: Chest pain radiated to the next likely secondary to tumor burden and malignancy. Pain control with IV Dilaudid as needed. Serial cardiac enzymes negative. Could be related to pancreatitis. Pancreatic head mass was noted in the previous CT. (3) Hypotension ICD Code: I95.9 - Hypotension, unspecified Plan: Hypotension likely secondary to dehydration. Hold antihypertensive medications Patient received IV fluid at 100 cc/h. (4) Hyponatremia ICD Code: E87.1 - Hypo-osmolality and hyponatremia Plan: Likely related to hypovolemic hyponatremia. Received IV fluid (5) Dehydration ICD Code: E86.0 - Dehydration Status: Acute Plan: Due to poor oral intake. IV fluids. (6) Failure to thrive in adult ICD Code: R62.7 - Adult failure to thrive Plan: Likely related to metastatic cancer Patient with failure to thrive. BMI is 16.3 and patient with her appetite and poor oral intake. See above (7) Dysphagia ICD Code: R13.10 - Dysphagia, unspecified (8) High anion gap metabolic acidosis ICD Code: E87.2 - Acidosis Status: Resolved (9) Tachycardia ICD Code: R00.0 - Tachycardia, unspecified Status: Acute (10) Hypothyroidism ICD Code: E03.9 - Hypothyroidism, unspecified (11) Arthritis ICD Code: M19.90 - Unspecified osteoarthritis, unspecified site (12) Acute pancreatitis ICD Code: K85.90 - Acute pancreatitis without necrosis or infection, unspecified Status: Acute Plan: Secondary to pancreatic mass IV fluid as above. Continue to monitor. (13) DVT (deep venous thrombosis) ICD Code: I82.409 - Acute embolism and thrombosis of unspecified deep veins of unspecified lower extremity Plan: Previous imaging showed the patient had a right upper extremity ultrasound which showed a subclavian DVT. On Eliquis. Continue Pt Condition on Discharge: Stable Discharge Disposition: Hospice/Med Facility Discharge Time: > 30 minutes Discharge Instructions DIET: Follow Instructions for: As Tolerated, No Restrictions Activities you can perform: Regular-No Restrictions Casey Ruff MD Mar 24, 2018 16:09
== END 2018-03-24 11:14 | disposition hospice, inpatient (51) | DRG 180 ==
LOC: NEPC 09:18 → NEDA 11:50 → N05A 14:39 → OBSVTOIN 03-22 08:43
PROVIDERS: ADMIT Family Medicine; ATTEND Family Medicine
DX: C34.11 Malignant neoplasm of upper lobe, right bronchus or lung (principal); K85.90 Acute pancreatitis without necrosis or infection, unspecified; C78.7 Secondary malignant neoplasm of liver and intrahepatic bile duct; C78.89 Secondary malignant neoplasm of other digestive organs; I95.9 Hypotension, unspecified; R13.10 Dysphagia, unspecified; E87.1 Hypo-osmolality and hyponatremia; E86.0 Dehydration; C34.31 Malignant neoplasm of lower lobe, right bronchus or lung; R62.7 Adult failure to thrive; I25.10 Atherosclerotic heart disease of native coronary artery without angina pectoris; L93.0 Discoid lupus erythematosus; R00.0 Tachycardia, unspecified; M19.90 Unspecified osteoarthritis, unspecified site; E03.9 Hypothyroidism, unspecified; E78.5 Hyperlipidemia, unspecified; Z86.718 Personal history of other venous thrombosis and embolism; Z79.01 Long term (current) use of anticoagulants; Z79.891 Long term (current) use of opiate analgesic; Z79.52 Long term (current) use of systemic steroids; Z51.5 Encounter for palliative care
CPT/HCPCS: 71250; 74230; 80048; 80053; 80076; 82550; 82552; 83690; 84484; 85025; 85027; 85610; 93005; 93970; J1170; J1580; J1650; J2060; J2270; J2405; J7030; J7512